=== PATIENT | female | born 1960 | race African-American/Black ===

== ENCOUNTER 2017-09-25 16:47 | Emergency (ER) | payer MEDICAID ==
[2017-09-25] MEDS ORDERED: ONDANSETRON HCL INJ/PF 4 MG/2 ML SDV IV ONE (17:01)
--- NOTE | 2017-09-25 17:07 | ER Document Report ---
ED Medical Screen (RME) - General Chief Complaint: Dizziness Stated Complaint: DIZZY,LEG PAIN Time Seen by Provider: 09/25/17 16:58 Mode of Arrival: Ambulatory Information source: Patient Notes: 57-year-old diabetic female presents with complaints of not feeling well and neuropathic pain right lower extremity. Patient notes her blood sugars been pretty high noted to be 400 on arrival I have greeted and performed a rapid initial assessment of this patient. A comprehensive ED assessment and evaluation of the patient, analysis of test results and completion of the medical decision making process will be conducted by additional ED providers. PHYSICAL EXAMINATION: GENERAL: Well-appearing, well-nourished and in no acute distress. HEAD: Atraumatic, normocephalic. EYES: Pupils equal round extraocular movements intact, conjunctiva are normal. ENT: Nares patent NECK: Normal range of motion LUNGS: No respiratory distress Musculoskeletal: Normal range of motion NEUROLOGICAL: Normal speech, normal gait. PSYCH: Normal mood, normal affect. SKIN: Warm, Dry, normal turgor, no rashes or lesions noted. TRAVEL OUTSIDE OF THE [place] IN LAST 30 DAYS: No - Related Data Allergies/Adverse Reactions: peanuts Allergy (Uncoded 09/25/17 16:48) Past Medical History - Social History Frequency of alcohol use: Rare Drug Abuse: None - Past Medical History Cardiac Medical History: Reports: Hx Hypercholesterolemia Pulmonary Medical History: Denies: Hx Tuberculosis Endocrine Medical History: Reports: Hx Diabetes Mellitus Type 2 - "diet controlled" Renal/ Medical History: Denies: Hx Peritoneal Dialysis Psychiatric Medical History: Reports: Hx Depression - anxiety Past Surgical History: Reports: Hx Cholecystectomy, Hx Tubal Ligation. Denies: Hx Pacemaker - Immunizations Hx Diphtheria, Pertussis, Tetanus Vaccination: Yes Physical Exam - Vital signs Vitals: Temp Pulse Resp BP Pulse Ox 98.3 F 98 20 125/89 H 96 09/25/17 16:52 09/25/17 16:52 09/25/17 16:52 09/25/17 16:52 09/25/17 16:52 Course - Vital Signs Vital signs: Temp Pulse Resp BP Pulse Ox 98.3 F 98 20 125/89 H 96 09/25/17 16:52 09/25/17 16:52 09/25/17 16:52 09/25/17 16:52 09/25/17 16:52
--- NOTE | 2017-09-25 17:23 | ER Document Report ---
ED General - General Mode of Arrival: Ambulatory TRAVEL OUTSIDE OF THE [place] IN LAST 30 DAYS: No <LAVONNE DIEGO - Last Filed: 09/25/17 19:00> <FREDY MOSELEY - Last Filed: 09/25/17 21:53> - General Chief Complaint: Dizziness Stated Complaint: DIZZY,LEG PAIN Time Seen by Provider: 09/25/17 16:58 - HPI Notes: Patient is a 57-year-old female type 1 insulin-dependent diabetic who presents to the ED complaining of occ dizziness, sweats, nausea, intermittent bilateral leg 'nerve pains' with increased sugar. Patient states that she has not been checking her sugars lately and when she started up with the symptoms she knew that her sugar was high. Patient checked her sugar and she was in the 4-500s. Patient states that she has been eating and drinking without any difficulties. She is urinating normally and having normal bowel movements. Patient states that she is currently on a sliding scale for insulin. Patient has not lost any consciousness. Patient states that she is ambulatory without any difficulties. Denies any headache, fever, head injury, neck pain, changes in vision/speech/ mentation/hearing, URI, sore throat, chest pain, palpitations, syncope, cough, shortness of breath, wheeze, dyspnea, abdominal pain, vomiting/diarrhea, urinary retention, dysuria, hematuria, loss of control of bowel or bladder, saddle anesthesia, muscle paralysis/weakness, or rash. (LAVONNE DIEGO) - Related Data Allergies/Adverse Reactions: peanuts Allergy (Uncoded 09/25/17 16:48) Past Medical History - General Information source: Patient - Social History Smoking Status: Current Every Day Smoker Frequency of alcohol use: Rare Drug Abuse: None Family History: DM Patient has suicidal ideation: No Patient has homicidal ideation: No - Past Medical History Cardiac Medical History: Reports: Hx Hypercholesterolemia Pulmonary Medical History: Denies: Hx Tuberculosis Endocrine Medical History: Reports: Hx Diabetes Mellitus Type 2 - "diet controlled" Renal/ Medical History: Denies: Hx Peritoneal Dialysis Psychiatric Medical History: Reports: Hx Depression - anxiety Past Surgical History: Reports: Hx Cholecystectomy, Hx Tubal Ligation. Denies: Hx Pacemaker - Immunizations Hx Diphtheria, Pertussis, Tetanus Vaccination: Yes Hx Pneumococcal Vaccination: 04/12/12 <LAVONNE DIEGO - Last Filed: 09/25/17 19:00> Review of Systems <LAVONNE DIEGO - Last Filed: 09/25/17 19:00> <FREDY MOSELEY - Last Filed: 09/25/17 21:53> - Review of Systems Notes: REVIEW OF SYSTEMS: CONSTITUTIONAL : see hpi. Denies fever. EENT: Denies eye, ear, throat, or mouth pain or symptoms. Denies nasal or sinus congestion or discharge. Denies throat, tongue, or mouth swelling or difficulty swallowing. CARDIOVASCULAR: Denies chest pain. Denies palpitations or racing or irregular heart beat. Denies ankle edema. RESPIRATORY: Denies cough, cold, or chest congestion. Denies shortness of breath, difficulty breathing, or wheezing. GASTROINTESTINAL: see hpi. Denies abdominal pain or distention. Denies vomiting , or diarrhea. Denies blood in vomitus, stools, or per rectum. Denies black, tarry stools. Denies constipation. GENITOURINARY: Denies difficulty urinating, painful urination, burning, frequency, blood in urine, or discharge. MUSCULOSKELETAL: see hpi. Denies back or neck pain or stiffness. Denies joint pain or swelling. SKIN: Denies rash, lesions or sores. NEUROLOGICAL: Denies confusion or altered mental status. Denies passing out or loss of consciousness. Denies dizziness or lightheadedness. Denies headache. Denies weakness or paralysis or loss of use of either side. Denies problems with gait or speech. Denies seizures. PSYCHIATRIC: Denies anxiety or stress. ALL OTHER SYSTEMS REVIEWED AND NEGATIVE. Dictation was performed using [employer] voice recognition software (LAVONNE DIEGO) Physical Exam <LAVONNE DIEGO - Last Filed: 09/25/17 19:00> <FREDY MOSELEY - Last Filed: 09/25/17 21:53> - Vital signs Vitals: Temp Pulse Resp BP Pulse Ox 98.3 F 98 20 125/89 H 96 09/25/17 16:52 09/25/17 16:52 09/25/17 16:52 09/25/17 16:52 09/25/17 16:52 - Notes Notes: PHYSICAL EXAMINATION: GENERAL: Well-appearing, well-nourished and in no acute distress. A&Ox4. Answers questions appropriately. Appears comfortable in no discomfort. HEAD: Atraumatic, normocephalic. EYES: Pupils equal round and reactive to light, extraocular movements intact, sclera anicteric, conjunctiva are normal. ENT: Nares patent and without discharge. oropharynx clear without exudates. No tonsilar hypertrophy or erythema. Moist mucous membranes. NECK: Normal range of motion, supple without lymphadenopathy. No rigidity. LUNGS: Breath sounds clear to auscultation bilaterally and equal. No wheezes rales or rhonchi. HEART: Regular rate and rhythm without murmurs, rubs, gallops. ABDOMEN: Soft, nontender, nondistended abdomen. No guarding, no rebound. No masses appreciated. Normal bowel sounds present. No CVA tenderness bilaterally. Musculoskeletal: FROM to passive/active. Strength 5+/5. Margareth neg. No calf erythema/swelling. Extremities: No cyanosis, clubbing, or edema b/l. Peripheral pulses 2+. Capillary refill less than 3 seconds. NEUROLOGICAL: MMSE intact. NIH 0. GCS 15. Cranial nerves grossly intact. Normal speech, normal gait. Normal sensory, motor exams PSYCH: Normal mood, normal affect. SKIN: Warm, Dry, normal turgor, no rashes or lesions noted. (LAVONNE DIEGO) Course - Laboratory Result Diagrams: 09/25/17 18:00 09/25/17 18:00 <LAVONNE DIEGO - Last Filed: 09/25/17 19:00> - Laboratory Result Diagrams: 09/25/17 18:00 09/25/17 18:00 <FREDY MOSELEY - Last Filed: 09/25/17 21:53> - Re-evaluation Re-evalutation: 09/25/17 18:46 Patient is an afebrile, well-hydrated, 57-year-old female who presents to the ED with elevated blood glucose. Vitals are stable. PE is otherwise unremarkable. CBC, venous blood gas or unremarkable for any acute pathology. CMP was unremarkable aside from the elevated blood glucose level. Urinalysis was unremarkable aside from ketones and sugar. Patient was started on to 2 L of normal saline. Glucose is 381. Regular insulin 5 units ordered. Patient was also given Zofran at triage. Low suspicion for any DKA, sepsis, meningitis , severe dehydration, or other systemic emergent condition at this time. Patient is aware that her condition can change from initial presentation and she needs to monitor symptoms closely and seek medical attention for any acute changes. Recommend conservative measures for symptoms. Recheck with your PCM in 3-5 days. Return to the ED with any worsening/concerning symptoms otherwise as reviewed in discharge. Patient is in agreement. Patient will be discharged if glucose remains stable after fluids and insulin. 09/25/17 19:00 Transfer remaining care to [facility] if any new problems should arise. (LAVONNE DIEGO) 09/25/17 20:45 Patient without any nausea or vomiting at this time. Vital signs remained stable. Discussed plan of care with patient as well as importance of follow-up with primary doctor to recheck her diabetic medication regimen. Patient stable for discharge at this time. (FREDY MOSELEY) - Vital Signs Vital signs: Temp Pulse Resp BP Pulse Ox 98.3 F 98 17 110/60 97 09/25/17 21:48 09/25/17 16:52 09/25/17 21:43 09/25/17 21:43 09/25/17 21:43 - Laboratory Laboratory results interpreted by me: 09/25/17 09/25/17 09/25/17 18:00 18:00 18:00 RDW 14.9 H Glucose 386 H POC Glucose Urine Glucose (UA) >=500 H Urine Ketones 20 H Urine Blood SMALL H 09/25/17 21:09 RDW Glucose POC Glucose 260 H Urine Glucose (UA) Urine Ketones Urine Blood Discharge <LAVONNE DIEGO - Last Filed: 09/25/17 19:00> <FREDY MOSELEY - Last Filed: 09/25/17 21:53> - Discharge Clinical Impression: Elevated glucose Condition: Stable Disposition: HOME, SELF-CARE Additional Instructions: Maintain adequate fluid and food intake healthy diet, low carb/sugar Monitor blood glucose levels regularly and keep a log to report to your PCM* Zofran as needed tylenol if needed Monitor for any worsening symptoms Make sure you are staying hydrated enough to urinate and have normal BM's Recheck with your PCM in 3-5 days Consider consult with Endocrinology for ongoing/worsening symptoms Return to the ED with any worsening symptoms and/or development of fever, headache, chest pain, palpitations, syncope, shortness of breath, trouble breathing, abdominal pain, n/v/d, blood in stool/urine, weakness, or other worsening symptoms that are concerning to you. Prescriptions: Ondansetron [Zofran Odt 4 mg Tablet] 1 - 2 tab PO Q4H PRN #15 tab.rapdis PRN Reason: For Nausea/Vomiting Forms: Elevated Blood Pressure Referrals: FOZIA KOLB MD [Primary Care Provider] - Follow up in 3-5 days
[2017-09-25] MEDS: NORMAL SALINE 1000 ML 1,000 ML IV PRN ×2 (18:01→19:09)
[2017-09-25 18:15] LABS: ABSOLUTE BASOPHILS # (AUTO) 0.1 10^3/uL (0.0-0.2); ABSOLUTE EOSINOPHILS # (AUTO) 0.1 10^3/uL (0.0-0.6); ABSOLUTE LYMPHOCYTES (AUTO) 2.3 10^3/uL (0.5-4.7); ABSOLUTE MONOCYTES (AUTO) 0.4 10^3/uL (0.1-1.4); ABSOLUTE NEUT (AUTO) 3.2 10^3/uL (1.7-8.2); BASOPHILS % (AUTO) 1.3 % (0-2); HEMATOCRIT 42.2 % (36.0-47.0); LYMPHOCYTES % (AUTO) 37.6 % (13-45); MEAN CORPUSCULAR HGB CONC 33.2 g/dL (32.0-36.0); MEAN CORPUSCULAR VOLUME 81 fl (80-97); MONOCYTES % (AUTO) 6.9 % (3-13); PLATELET COUNT 257 10^3/uL (150-450); RED BLOOD COUNT 5.21 10^6/uL (3.72-5.28); RED CELL DISTRIBUTION WIDTH 14.9 % (11.5-14.0); SEGMENTED NEUTROPHILS % (AUTO) 52.2 % (42-78); TOTAL CELLS COUNTED % (AUTO) 100 %; WHITE BLOOD COUNT 6.2 10^3/uL (4.0-10.5)
[2017-09-25 18:16] LABS: APPEARANCE,URINE SLIGHTLY-CLOUDY; BILIRUBIN,URINE NEGATIVE (NEGATIVE); COLOR,URINE YELLOW; GLUCOSE, URINE >=500 mg/dL (NEGATIVE); KETONES,URINE 20 mg/dL (NEGATIVE); LEUKOCYTE ESTERASE,URINE NEGATIVE (NEGATIVE); NITRITE,URINE NEGATIVE (NEGATIVE); PROTEIN,URINE NEGATIVE (NEGATIVE); URINE SPECIFIC GRAVITY 1.037; UROBILINOGEN,URINE NEGATIVE mg/dL (<2.0)
[2017-09-25 18:31] LABS: ALANINE AMINOTRANSFERASE 25 U/L (9-52); ALBUMIN 4.5 g/dL (3.5-5.0); ALKALINE PHOSPHATASE 113 U/L (38-126); ANION GAP 11 (5-19); ASPARTATE AMINO TRANSFERASE 16 U/L (14-36); BILIRUBIN,DIRECT 0.2 mg/dL (0.0-0.4); BILIRUBIN,TOTAL 0.8 mg/dL (0.2-1.3); BLOOD UREA NITROGEN 8 mg/dL (7-20); CALCIUM 9.7 mg/dL (8.4-10.2); CARBON DIOXIDE 25 mmol/L (22-30); CHLORIDE 103 mmol/L (98-107); GLUCOSE 386 mg/dL (75-110); LIPASE 246.4 U/L (23-300); POTASSIUM 4.3 mmol/L (3.6-5.0); SODIUM 138.9 mmol/L (137-145); TOTAL PROTEIN 7.5 g/dL (6.3-8.2)
[2017-09-25 18:41] LABS: VENOUS BLOOD BASE EXCESS -1.9 mmol/L; VENOUS BLOOD HCO3 23.7 mmol/L (20-32); VENOUS BLOOD PCO2 43.6 mmHg (35-63); VENOUS BLOOD PH 7.35 (7.30-7.42)
[2017-09-25] MEDS ORDERED: INSULIN REG, HUMAN 100 UNIT/ML 3 ML VIAL (PYX) SUBCUT ONE ×2 (18:42)
[2017-09-25 21:47] VITALS: BP 110/60
== END 2017-09-25 21:54 | disposition home or self-care (01) ==
LOC: ER 16:47
DX: E10.65 Type 1 diabetes mellitus with hyperglycemia (principal); R42 Dizziness and giddiness; F17.200 Nicotine dependence, unspecified, uncomplicated; Z91.010 Allergy to peanuts; Z79.4 Long term (current) use of insulin; Z90.49 Acquired absence of other specified parts of digestive tract; Z98.51 Tubal ligation status
CPT/HCPCS: 99284; 96361; 96374; 36415; 82962; 83690; 85025; 80053; 81001; 82803; J1815; J2405; J7030

== ENCOUNTER → 2017-09-27 | Outpatient (CLI) | payer MEDICAID ==
--- NOTE | 2017-09-27 17:03 | WOMENS IMAGING REPORT ---
EXAM DESCRIPTION: BILAT SCREENING MAMMO W/CAD COMPLETED DATE/TIME: 09/27/2017 1:54 pm REASON FOR STUDY: ROUTINE SCREENING; Z12.31 Z12.31 ENCNTR SCREEN MAMMOGRAM FOR MALIGNANT NEOPLASM O F BONI E04.9 NONTOXIC GOITER, UNSPECIFIED COMPARISON: 2008 TECHNIQUE: Standard craniocaudal and mediolateral oblique views of each breast recorded using digita l acquisition. LIMITATIONS: None. FINDINGS: No masses, calcifications or architectural distortion. No areas of suspicion. Read with the assistance of CAD. .[facility] - R2 Cenova Version 1.3 .[facility] - R2 Cenova Version 1.3 .[facility] - R2 Cenova Version 2.4 .[facility] - R2 Cenova Version 2.4 .[facility] - R2 [employer] Version 9.2 IMPRESSION: NORMAL MAMMOGRAM. BIRADS 1. BREAST DENSITY: b. There are scattered areas of fibroglandular density. BIRAD: 1 NEGATIVE RECOMMENDATION: ROUTINE SCREENING COMMENT: The patient has been notified of the results by letter per MQSA requirements. Additional no tification policies are in place for contacting patient with suspicious or incomplete findings. Quality ID #[id number]: The [employer] recommends an annual screening mammogram for women aged 40 years or over. This facility utilizes a reminder system to ensure that all patients receive reminder letters, and/or direct phone calls for appointments. This includes reminders for routine scr eening mammograms, diagnostic mammograms, or other Breast Imaging Interventions when appropriate. Th is patient will be placed in the appropriate reminder system. The [employer] (ACR) has developed recommendations for screening MRI of the breast s in certain patient populations, to be used in conjunction with mammography. Breast MRI surveillanc e may be appropriate for women with more than 20% lifetime risk of developing breast cancer as deter mined by genetic testing, significant family history of the disease, or history of mantle radiation f or Hodgkins Disease. ACR Practice Guidelines 2008. TECHNICAL DOCUMENTATION: FINDING NUMBER: (1) ASSESSMENT: (1) JOB ID: [id number] [employer]- All Rights Reserved
== END ==
LOC: WI 13:41
PROVIDERS: ATTEND Internal Medicine Geriatric Medicine
DX: Z12.31 Encounter for screening mammogram for malignant neoplasm of breast (principal); E04.9 Nontoxic goiter, unspecified
CPT/HCPCS: 77067

== ENCOUNTER 2018-11-08 15:49 | Emergency (ER) | payer MEDICAID ==
[2018-11-08] MEDS ORDERED: ACETAMINOPHEN 325 MG TABLET PO ONE (17:39)
--- NOTE | 2018-11-08 17:40 | ER Document Report ---
ED Medical Screen (RME) - General Chief Complaint: Leg Pain Stated Complaint: LEG/FEET/ARM PAIN Time Seen by Provider: 11/08/18 17:38 Primary Care Provider: FOZIA KOLB MD [Primary Care Provider] - Follow up as needed Mode of Arrival: Ambulatory Information source: Patient Notes: Patient presents complaining of muscle cramps to the bilateral calves in the left forearm that started around 4 AM today. Patient denies any new foods medications or changes in her usual prescription dosages. Patient denies any injury or fever. Patient does complain of mild headache that is started while here waiting today. I have greeted and performed a rapid initial assessment of this patient. A comprehensive ED assessment and evaluation of the patient, analysis of test results and completion of the medical decision making process will be conducted by additional ED providers. hx: DM TRAVEL OUTSIDE OF THE [place] IN LAST 30 DAYS: No - Related Data Allergies/Adverse Reactions: peanuts Allergy (Uncoded 11/08/18 15:51) Past Medical History - Past Medical History Cardiac Medical History: Reports: Hx Hypercholesterolemia Pulmonary Medical History: Denies: Hx Tuberculosis Endocrine Medical History: Reports: Hx Diabetes Mellitus Type 2 - "diet controlled" Renal/ Medical History: Denies: Hx Peritoneal Dialysis Psychiatric Medical History: Reports: Hx Depression - anxiety Past Surgical History: Reports: Hx Cholecystectomy, Hx Tubal Ligation. Denies: Hx Pacemaker - Immunizations Hx Diphtheria, Pertussis, Tetanus Vaccination: Yes Physical Exam - Vital signs Vitals: Temp Pulse Resp BP Pulse Ox 98.3 F 88 17 118/71 98 11/08/18 16:42 11/08/18 16:42 11/08/18 16:42 11/08/18 16:42 11/08/18 16:42 - Extremities General upper extremity: Tender - Left forearm General lower extremity: Tender - Bilateral calf tenderness Course - Vital Signs Vital signs: Temp Pulse Resp BP Pulse Ox 98.3 F 88 17 118/71 98 11/08/18 16:42 11/08/18 16:42 11/08/18 16:42 11/08/18 16:42 11/08/18 16:42 Doctor's Discharge - Discharge Referrals: FOZIA KOLB MD [Primary Care Provider] - Follow up as needed
[2018-11-08 18:22] LABS: ABSOLUTE BASOPHILS # (AUTO) 0.1 10^3/uL (0.0-0.2); ABSOLUTE EOSINOPHILS # (AUTO) 0.2 10^3/uL (0.0-0.6); ABSOLUTE MONOCYTES (AUTO) 0.7 10^3/uL (0.1-1.4); ABSOLUTE NEUT (AUTO) 5.7 10^3/uL (1.7-8.2); BASOPHILS % (AUTO) 0.8 % (0-2); EOSINOPHILS % (AUTO) 1.6 % (0-6); HEMATOCRIT 41.6 % (36.0-47.0); HEMOGLOBIN 14.1 g/dL (12.0-15.5); LYMPHOCYTES % (AUTO) 31.5 % (13-45); MEAN CORPUSCULAR HEMOGLOBIN 28.3 pg (27.0-33.4); MEAN CORPUSCULAR HGB CONC 33.9 g/dL (32.0-36.0); MEAN CORPUSCULAR VOLUME 84 fl (80-97); MONOCYTES % (AUTO) 7.6 % (3-13); PLATELET COUNT 290 10^3/uL (150-450); RED BLOOD COUNT 4.98 10^6/uL (3.72-5.28); RED CELL DISTRIBUTION WIDTH 15.5 % (11.5-14.0); SEGMENTED NEUTROPHILS % (AUTO) 58.5 % (42-78); TOTAL CELLS COUNTED % (AUTO) 100 %; WHITE BLOOD COUNT 9.7 10^3/uL (4.0-10.5)
[2018-11-08 18:41] LABS: ALANINE AMINOTRANSFERASE 24 U/L (9-52); ALBUMIN 4.8 g/dL (3.5-5.0); ALKALINE PHOSPHATASE 119 U/L (38-126); ANION GAP 11 (5-19); ANISOCYTOSIS SLIGHT; ASPARTATE AMINO TRANSFERASE 29 U/L (14-36); BILIRUBIN,DIRECT 0.2 mg/dL (0.0-0.4); BILIRUBIN,TOTAL 1.3 mg/dL (0.2-1.3); BLOOD UREA NITROGEN 14 mg/dL (7-20); CALCIUM 10.3 mg/dL (8.4-10.2); CARBON DIOXIDE 28 mmol/L (22-30); CHLORIDE 100 mmol/L (98-107); CREATINE KINASE 187 U/L (30-135); GLUCOSE 138 mg/dL (75-110); PLATELET COMMENT ADEQUATE; POTASSIUM 4.1 mmol/L (3.6-5.0); SODIUM 138.8 mmol/L (137-145); TOTAL PROTEIN 7.8 g/dL (6.3-8.2); TOXIC GRANULATION SLIGHT
--- NOTE | 2018-11-09 00:43 | ER Document Report ---
ED General - General Chief Complaint: Leg Pain Stated Complaint: LEG/FEET/ARM PAIN Time Seen by Provider: 11/08/18 17:38 Primary Care Provider: FOZIA KOLB MD [Primary Care Provider] - 11/16/18 Mode of Arrival: Ambulatory Notes: Patient is a 58-year-old female who presents to the emergency department with a chief complaint of bilateral low leg and left arm pain. She describes her pain as a cramping, "charley horse" feeling. Her symptoms come and go but today they lasted all day and she was worried. She ended up coming to the emergency department she denies any shortness of breath, nausea, vomiting, diarrhea. She is a past medical history of diabetes. TRAVEL OUTSIDE OF THE [place] IN LAST 30 DAYS: No - Related Data Allergies/Adverse Reactions: peanuts Allergy (Uncoded 11/08/18 15:51) Past Medical History - General Information source: Patient - Social History Smoking Status: Current Every Day Smoker Chew tobacco use (# tins/day): No Frequency of alcohol use: None Drug Abuse: None Family History: DM Patient has suicidal ideation: No Patient has homicidal ideation: No - Past Medical History Cardiac Medical History: Reports: Hx Hypercholesterolemia Pulmonary Medical History: Denies: Hx Tuberculosis Endocrine Medical History: Reports: Hx Diabetes Mellitus Type 2 - "diet controlled" Renal/ Medical History: Denies: Hx Peritoneal Dialysis Psychiatric Medical History: Reports: Hx Depression - anxiety Past Surgical History: Reports: Hx Cholecystectomy, Hx Tubal Ligation. Denies: Hx Pacemaker - Immunizations Hx Diphtheria, Pertussis, Tetanus Vaccination: Yes Hx Pneumococcal Vaccination: 04/12/12 Review of Systems - Review of Systems Notes: REVIEW OF SYSTEMS: CONSTITUTIONAL : Denies recent illness. Denies recent unintentional weight loss. Denies fever, chills, or sweats. EENT: Denies eye, ear, throat, or mouth pain, discharge, or symptoms. Denies nasal or sinus congestion. CARDIOVASCULAR: Denies chest pain. RESPIRATORY: Denies shortness of breath, cough, congestion, difficulty breathing, or wheezing. GASTROINTESTINAL: Denies nausea, vomiting, and diarrhea. Denies abdominal pain. Denies constipation. GENITOURINARY: Denies difficulty urinating, burning, blood in urine, urgency or frequency. MUSCULOSKELETAL: See HPI SKIN: Denies rash, itchiness, or lesions HEMATOLOGIC : Denies easy bruising or bleeding. LYMPHATIC: Denies swollen, painful, enlarged glands. NEUROLOGICAL: Denies no numbness or tingling denies weakness. Denies headache. Denies altered mental status. Denies alteration in speech. PSYCHIATRIC: Denies stress, anxiety, alteration in sleep patterns, or depression. All other systems reviewed and negative. Physical Exam - Vital signs Vitals: Temp Pulse Resp BP Pulse Ox 98.3 F 88 17 118/71 98 11/08/18 16:42 11/08/18 16:42 11/08/18 16:42 11/08/18 16:42 11/08/18 16:42 - Notes Notes: PHYSICAL EXAMINATION: GENERAL: Appears well, healthy, well-nourished, no acute distress. HEAD: Normocephalic, atraumatic. EYES: PERRL, conjunctiva normal, all extraocular movements intact, sclera nonicteric ENT: Dry mucous membranes. NECK: Supple, no noticeable swelling, redness, rash. Normal range of motion. LUNGS: Equal breath sounds bilaterally and clear to auscultation. No wheezes rales or rhonchi. CARDIOVASCULAR: S1-S2, regular rate, regular rhythm. Radial pulses 2+, normal. ABDOMEN: Normoactive bowel sounds. Soft, nontender, no guarding, no rebound tenderness, and no masses palpated. EXTREMITIES: Normal strength and range of motion, no pitting or edema. No cyanosis. NEUROLOGICAL: Moves all extremities upon command. Strength 5/5 in all extre mities. PSYCH: Normal mood, normal affect. SKIN: Warm, dry. No rash, lesions, ulcerations noted. Normal skin turgor. Course - Re-evaluation Re-evalutation: Patient's commenced hematology is unremarkable. Her CK is slightly elevated at 187. Her calcium is 10.3. I suspect her "charley horse" feeling are due to her dehydration and her calcium being slightly elevated. I have instructed her that she needs to increase her water intake. Strict follow-up precautions were given. Verbal discharge instructions were given to the patient. They verbalized understanding. They are stable for discharge. - Vital Signs Vital signs: Temp Pulse Resp BP Pulse Ox 97.6 F 98 16 113/57 L 100 11/09/18 00:54 11/09/18 00:54 11/09/18 00:54 11/09/18 00:54 11/09/18 00:54 - Laboratory Result Diagrams: 11/08/18 18:03 11/08/18 18:03 Laboratory results interpreted by me: 11/08/18 11/08/18 18:03 18:03 RDW 15.5 H Glucose 138 H Calcium 10.3 H Creatine Kinase 187 H Discharge - Discharge Clinical Impression: Left arm pain Leg pain Qualifiers: Laterality: bilateral Qualified Code(s): M79.604 - Pain in right leg Condition: Stable Disposition: HOME, SELF-CARE Additional Instructions: You were seen today in the emergency department for leg pain and left hand pain. Your pain or, "charley horse" feeling is due to dehydration. Please make sure you stay well-hydrated. You can take Tylenol 1000 mg and ibuprofen 600 mg every 6 hours as needed for your pain. Please follow-up with your primary care provider in regards to this visit. You have worsening symptoms, please return to the emergency department. Referrals: FOZIA KOLB MD [Primary Care Provider] - 11/16/18
[2018-11-09] MEDS ORDERED: IBUPROFEN 600 MG TABLET PO ONE (00:44)
[2018-11-09] MEDS ORDERED: ACETAMINOPHEN 325 MG TABLET PO ONE (00:45)
[2018-11-09 01:05] VITALS: BP 113/57
== END 2018-11-09 01:05 | disposition home or self-care (01) ==
LOC: ER 15:49
DX: M79.602 Pain in left arm (principal); E86.0 Dehydration; M79.661 Pain in right lower leg; M79.662 Pain in left lower leg; E11.9 Type 2 diabetes mellitus without complications; F17.200 Nicotine dependence, unspecified, uncomplicated; Z91.010 Allergy to peanuts
CPT/HCPCS: 99283; 36415; 82550; 85025; 80053; J3490 ×3

== ENCOUNTER → 2019-01-16 | Outpatient (CLI) | payer MEDICAID ==
[2019-01-16 13:38] LABS: ANION GAP 7 (5-19); BLOOD UREA NITROGEN 15 mg/dL (7-20); CALCIUM 10.2 mg/dL (8.4-10.2); CARBON DIOXIDE 31 mmol/L (22-30); CHLORIDE 107 mmol/L (98-107); CREATINE KINASE 72 U/L (30-135); GLUCOSE 116 mg/dL (75-110); POTASSIUM 5.1 mmol/L (3.6-5.0)
== END ==
LOC: OD 11:13
PROVIDERS: ATTEND Internal Medicine Geriatric Medicine
DX: M79.605 Pain in left leg (principal); M79.604 Pain in right leg
CPT/HCPCS: 36415; 80048; 82550; 83735

== ENCOUNTER → 2019-01-30 | Outpatient (CLI) | payer MEDICAID ==
--- NOTE | 2019-01-30 17:29 | VASCULAR PRELIM REPORT ---
Provider Note Provider Note: The study is normal and negative for deep venous thrombosis in the lower extremity veins. A final report will be completed.
--- NOTE | 2019-01-31 13:31 | XCELERA REPORT ---
[address] [facility] [address] Lower Extremity Venous Evaluation Procedure: Color flow and duplex imaging bilaterally of the veins of the lower extremities as well as the Common Femoral veins. Right Sided Venous Evaluation Normal vessel filling wall to wall, compression and augmentation as well as Colour flow down to the infrageniculate veins. Left Sided Venous Evaluation Normal vessel filling wall to wall, compression and augmentation as well as Colour flow down to the infrageniculate veins. Interpretation Summary No duplex evidence of DVT or obstruction in the bilateral lower extremities. Name: MADY YBARRA Age: 59 yrs Gender: Female : [id number] Patient Status: Outpatient Patient Location: Study Date: 01/30/2019 02:42 PM Reason For Study: PAIN Ordering Physician: FOZIA KOLB Performed By: Servando Link : FOZIA KOLB > Anup Pascual
== END ==
LOC: SP 14:26
PROVIDERS: ATTEND Internal Medicine Geriatric Medicine
DX: M79.662 Pain in left lower leg (principal); M79.661 Pain in right lower leg
CPT/HCPCS: 93970

== ENCOUNTER 2019-03-04 15:04 | Emergency (ER) | payer MEDICAID ==
[2019-03-04 15:22] VITALS: BP 118/88
--- NOTE | 2019-03-04 15:53 | ER Document Report ---
ED Medical Screen (RME) - General Chief Complaint: Drug Abuse Stated Complaint: WANTS REFERRAL/DRUG,ALCOHOL DETOX Time Seen by Provider: 03/04/19 15:46 Primary Care Provider: FOZIA KOLB MD [Primary Care Provider] - Follow up as needed Mode of Arrival: Ambulatory Information source: Patient Notes: Patient presents to the emergency department with request for help for drug and alcohol abuse. Patient reports she does cocaine all the time is been drinking for 3 months straight. She is been sober several times for 2 to 3 years at a time. Patient reports she usually gets help when she is up in [place] she just moved here. Pt is calm. Denies suicidal homicidal ideations. Reports she last drank alcohol yesterday. Cocaine 2 days ago. Denies history of IV drug use. I have greeted and performed a rapid initial assessment of this patient. A comprehensive ED assessment and evaluation of the patient, analysis of test results and completion of the medical decision making process will be conducted by additional ED providers. Dictation of this chart was performed using voice recognition software; therefore, there may be some unintended grammatical errors. TRAVEL OUTSIDE OF THE [place] IN LAST 30 DAYS: No - Related Data Allergies/Adverse Reactions: peanuts Allergy (Uncoded 03/04/19 15:11) Past Medical History - Past Medical History Cardiac Medical History: Reports: Hx Hypercholesterolemia Pulmonary Medical History: Denies: Hx Tuberculosis Endocrine Medical History: Reports: Hx Diabetes Mellitus Type 2 - "diet controlled" Renal/ Medical History: Denies: Hx Peritoneal Dialysis Psychiatric Medical History: Reports: Hx Depression - anxiety Past Surgical History: Reports: Hx Cholecystectomy, Hx Tubal Ligation. Denies: Hx Pacemaker - Immunizations Hx Diphtheria, Pertussis, Tetanus Vaccination: Yes Physical Exam - Vital signs Vitals: Temp Pulse Resp BP Pulse Ox 97.9 F 96 16 118/88 H 98 03/04/19 15:21 03/04/19 15:21 03/04/19 15:21 03/04/19 15:21 03/04/19 15:21 Course - Vital Signs Vital signs: Temp Pulse Resp BP Pulse Ox 97.9 F 96 16 118/88 H 98 03/04/19 15:21 03/04/19 15:21 03/04/19 15:21 03/04/19 15:21 07/07/19 15:21 Doctor's Discharge - Discharge Referrals: FOZIA KOLB MD [Primary Care Provider] - Follow up as needed
--- NOTE | 2019-03-04 16:18 | ER Document Report ---
ED General - General Chief Complaint: Drug Abuse Stated Complaint: WANTS REFERRAL/DRUG,ALCOHOL DETOX Time Seen by Provider: 03/04/19 15:46 Primary Care Provider: FOZIA KOLB MD [Primary Care Provider] - Follow up as needed Mode of Arrival: Ambulatory TRAVEL OUTSIDE OF THE [place] IN LAST 30 DAYS: No - HPI Patient complains to provider of: Alcohol abuse Notes: 89-year-old female presents looking to get help with her alcohol abuse. Patient was last drink was last night approximately 10 PM. Patient had 5 drinks yesterday but usually drinks a great deal more than this. Patient denies history of seizure or delirium tremens. Looking to get help. Denies all physical complaints - Related Data Allergies/Adverse Reactions: peanuts Allergy (Uncoded 03/04/19 15:11) Past Medical History - General Information source: Patient - Social History Smoking Status: Current Every Day Smoker Chew tobacco use (# tins/day): No Frequency of alcohol use: Heavy Drug Abuse: Cocaine, Marijuana Family History: DM Patient has suicidal ideation: No Patient has homicidal ideation: No - Past Medical History Cardiac Medical History: Reports: Hx Hypercholesterolemia Pulmonary Medical History: Denies: Hx Tuberculosis Endocrine Medical History: Reports: Hx Diabetes Mellitus Type 2 - "diet controlled" Renal/ Medical History: Denies: Hx Peritoneal Dialysis Psychiatric Medical History: Reports: Hx Depression - anxiety Past Surgical History: Reports: Hx Cholecystectomy, Hx Tubal Ligation. Denies: Hx Pacemaker - Immunizations Hx Diphtheria, Pertussis, Tetanus Vaccination: Yes Hx Pneumococcal Vaccination: 04/12/12 Review of Systems - Review of Systems Notes: REVIEW OF SYSTEMS: CONSTITUTIONAL: -fevers, -chills EENT: -eye pain, -difficulty swallowing, -nasal congestion CARDIOVASCULAR: -chest pain, -syncope. RESPIRATORY: -cough, -SOB GASTROINTESTINAL: -abdominal pain, -nausea, -vomiting, -diarrhea GENITOURINARY: -dysuria, -hematuria MUSCULOSKELETAL: -back pain, -neck pain SKIN: -rash or skin lesions. HEMATOLOGIC: -easy bruising or bleeding. LYMPHATIC: -swollen, enlarged glands. NEUROLOGICAL: -altered mental status or loss of consciousness, -headache, - neurologic symptoms PSYCHIATRIC: -anxiety, -depression. ALL OTHER SYSTEMS REVIEWED AND NEGATIVE. Physical Exam - Vital signs Vitals: Temp Pulse Resp BP Pulse Ox 97.9 F 96 16 118/88 H 98 07/07/19 15:21 03/04/19 15:21 03/04/19 15:21 03/04/19 15:21 03/04/19 15:21 - Notes Notes: PHYSICAL EXAMINATION: GENERAL: Well-appearing, well-nourished and in no acute distress. HEAD: Atraumatic, normocephalic. EYES: Pupils equal round and reactive to light, extraocular movements intact, sclera anicteric, conjunctiva are normal. ENT: nares patent, oropharynx clear without exudates. Moist mucous membranes. NECK: Normal range of motion, supple without lymphadenopathy LUNGS: Breath sounds clear to auscultation bilaterally and equal. No wheezes rales or rhonchi. HEART: Regular rate and rhythm without murmurs ABDOMEN: Soft, nontender, normoactive bowel sounds. No guarding, no rebound. No masses appreciated. EXTREMITIES: Normal range of motion, no pitting or edema. No cyanosis. NEUROLOGICAL: Cranial nerves grossly intact. Normal speech, normal gait. Normal sensory and motor exams. PSYCH: Normal mood, normal affect. SKIN: Warm, Dry, normal turgor, no rashes or lesions noted. Course - Re-evaluation Re-evalutation: 03/04/19 16:34 Well-appearing female no acute distress presents for alcohol evaluation. 03/04/19 16:48 Patient's extensive lab work-up unremarkable. Patient is provided detox and substance abuse information. Including calling mobile crisis that will assist with her placement. Patient be discharged from the hospital with prescription for Librium as well to help with symptoms of withdrawal. - Vital Signs Vital signs: Temp Pulse Resp BP Pulse Ox 97.9 F 96 16 118/88 H 98 03/04/19 15:21 03/04/19 15:21 03/04/19 15:21 03/04/19 15:21 03/04/19 15:21 - Laboratory Result Diagrams: 03/04/19 16:05 03/04/19 16:05 Laboratory results interpreted by me: 03/04/19 16:05 Glucose 171 H Total Protein 8.3 H Salicylates < 1.0 L Acetaminophen < 10 L Discharge - Discharge Clinical Impression: Alcohol abuse Condition: Stable Disposition: HOME, SELF-CARE Instructions: Alcohol Withdrawl (OM) Prescriptions: Chlordiazepoxide HCl [Librium 25 mg Capsule] 1 cap PO TID #30 capsule Referrals: FOZIA KOLB MD [Primary Care Provider] - Follow up as needed
[2019-03-04 16:25] LABS: ABSOLUTE BASOPHILS # (AUTO) 0.1 10^3/uL (0.0-0.2); ABSOLUTE EOSINOPHILS # (AUTO) 0.4 10^3/uL (0.0-0.6); ABSOLUTE LYMPHOCYTES (AUTO) 2.6 10^3/uL (0.5-4.7); ABSOLUTE MONOCYTES (AUTO) 0.7 10^3/uL (0.1-1.4); ABSOLUTE NEUT (AUTO) 5.9 10^3/uL (1.7-8.2); BASOPHILS % (AUTO) 0.7 % (0-2); EOSINOPHILS % (AUTO) 3.7 % (0-6); HEMATOCRIT 44.2 % (36.0-47.0); HEMOGLOBIN 14.5 g/dL (12.0-15.5); LYMPHOCYTES % (AUTO) 27.3 % (13-45); MEAN CORPUSCULAR HEMOGLOBIN 27.7 pg (27.0-33.4); MEAN CORPUSCULAR HGB CONC 32.8 g/dL (32.0-36.0); MEAN CORPUSCULAR VOLUME 85 fl (80-97); MONOCYTES % (AUTO) 7.3 % (3-13); PLATELET COUNT 293 10^3/uL (150-450); RED BLOOD COUNT 5.23 10^6/uL (3.72-5.28); RED CELL DISTRIBUTION WIDTH 16.6 % (11.5-14.0); TOTAL CELLS COUNTED % (AUTO) 100 %; WHITE BLOOD COUNT 9.6 10^3/uL (4.0-10.5)
[2019-03-04] MEDS ORDERED: LORAZEPAM 1 MG TABLET PO ONE (16:32)
[2019-03-04 16:36] LABS: ALANINE AMINOTRANSFERASE 20 U/L (9-52); ALBUMIN 4.9 g/dL (3.5-5.0); ALKALINE PHOSPHATASE 90 U/L (38-126); ANION GAP 9 (5-19); ASPARTATE AMINO TRANSFERASE 26 U/L (14-36); BILIRUBIN,DIRECT 0.2 mg/dL (0.0-0.4); BILIRUBIN,TOTAL 0.9 mg/dL (0.2-1.3); BLOOD UREA NITROGEN 14 mg/dL (7-20); CALCIUM 10.2 mg/dL (8.4-10.2); CARBON DIOXIDE 28 mmol/L (22-30); CHLORIDE 107 mmol/L (98-107); GLUCOSE 171 mg/dL (75-110); POTASSIUM 4.9 mmol/L (3.6-5.0); SODIUM 144.1 mmol/L (137-145); TOTAL PROTEIN 8.3 g/dL (6.3-8.2)
[2019-03-04 16:39] LABS: ACETAMINOPHEN < 10 ug/mL (10-30); ALCOHOL < 10 mg/dL (NONE DETECTED); SALICYLATE < 1.0 mg/dL (2.0-20.0)
[2019-03-04 17:01] LABS: TOXIC GRANULATION SLIGHT; TOXIC VACUOLATION PRESENT
[2019-03-04 17:02] LABS: ANISOCYTOSIS 1+; BURR CELLS SLIGHT; OVALOCYTES SLIGHT; PLATELET COMMENT ADEQUATE; PLATELET LARGE PRESENT; TEAR DROP CELLS SLIGHT
== END 2019-03-04 17:05 | disposition home or self-care (01) ==
LOC: ER 15:04
DX: F10.10 Alcohol abuse, uncomplicated (principal); F17.200 Nicotine dependence, unspecified, uncomplicated; E78.00 Pure hypercholesterolemia, unspecified; E11.9 Type 2 diabetes mellitus without complications; Z91.010 Allergy to peanuts; Z90.49 Acquired absence of other specified parts of digestive tract; Z98.51 Tubal ligation status
CPT/HCPCS: 36415; 80053; 80307; 85025; 99283

== ENCOUNTER 2019-05-30 17:06 | Emergency (ER) | payer MEDICAID, OTHER ==
--- NOTE | 2019-05-30 17:46 | ER Document Report ---
ED Medical Screen (RME) - General Chief Complaint: Numbness of Arm Stated Complaint: RIGHT ARM NUMB Time Seen by Provider: 05/30/19 17:44 Primary Care Provider: FOZIA KOLB MD [Primary Care Provider] - Follow up as needed Mode of Arrival: Ambulatory Information source: Patient Notes: 59-year-old female presented to ED for tingling in her right arm that then went up her right arm became numb for a while. She states she is also lost 20 pounds this month. She states she is diabetic type II. She used cocaine yesterday she states that the only time she is used it she smokes 15 or more cigarettes a day and is a heavy drinker at least every day. She states she has not eaten all day today and she took her insulin anyway. She states she does have a history of her gallbladder being removed. Patient is alert oriented respirations regular and unlabored speaking in full sentences. I have greeted and performed a rapid initial assessment of this patient. A comprehensive ED assessment and evaluation of the patient, analysis of test results and completion of medical decision making process will be conducted by an additional ED providers. TRAVEL OUTSIDE OF THE [place] IN LAST 30 DAYS: No - Related Data Allergies/Adverse Reactions: peanuts Allergy (Uncoded 05/30/19 17:34) Past Medical History - Social History Drug Abuse: Cocaine - Past Medical History Cardiac Medical History: Reports: Hx Hypercholesterolemia Pulmonary Medical History: Denies: Hx Tuberculosis Endocrine Medical History: Reports: Hx Diabetes Mellitus Type 2 - "diet controlled" Renal/ Medical History: Denies: Hx Peritoneal Dialysis Psychiatric Medical History: Reports: Hx Depression - anxiety Past Surgical History: Reports: Hx Cholecystectomy, Hx Tubal Ligation. Denies: Hx Pacemaker - Immunizations Hx Diphtheria, Pertussis, Tetanus Vaccination: Yes Physical Exam - Vital signs Vitals: Temp Pulse Resp BP Pulse Ox 98.6 F 115 H 16 102/86 H 96 05/30/19 17:14 05/30/19 17:14 05/30/19 17:14 05/30/19 17:14 05/30/19 17:14 Course - Vital Signs Vital signs: Temp Pulse Resp BP Pulse Ox 98.6 F 115 H 16 102/86 H 96 05/30/19 17:14 05/30/19 17:14 05/30/19 17:14 05/30/19 17:14 05/30/19 17:14 Doctor's Discharge - Discharge Referrals: FOZIA KOLB MD [Primary Care Provider] - Follow up as needed
[2019-05-30] MEDS ORDERED: NORMAL SALINE 1000 ML 1,000 ML IV ONE (17:47)
[2019-05-30 18:15] LABS: ABSOLUTE BASOPHILS # (AUTO) 0.1 10^3/uL (0.0-0.2); ABSOLUTE EOSINOPHILS # (AUTO) 0.1 10^3/uL (0.0-0.6); ABSOLUTE LYMPHOCYTES (AUTO) 3.4 10^3/uL (0.5-4.7); ABSOLUTE MONOCYTES (AUTO) 0.8 10^3/uL (0.1-1.4); ABSOLUTE NEUT (AUTO) 7.1 10^3/uL (1.7-8.2); BASOPHILS % (AUTO) 1.1 % (0-2); HEMATOCRIT 38.9 % (36.0-47.0); HEMOGLOBIN 12.9 g/dL (12.0-15.5); LYMPHOCYTES % (AUTO) 29.3 % (13-45); MEAN CORPUSCULAR HEMOGLOBIN 27.1 pg (27.0-33.4); MEAN CORPUSCULAR HGB CONC 33.2 g/dL (32.0-36.0); MEAN CORPUSCULAR VOLUME 82 fl (80-97); MONOCYTES % (AUTO) 7.3 % (3-13); PLATELET COUNT 308 10^3/uL (150-450); RED BLOOD COUNT 4.76 10^6/uL (3.72-5.28); RED CELL DISTRIBUTION WIDTH 15.1 % (11.5-14.0); SEGMENTED NEUTROPHILS % (AUTO) 61.3 % (42-78); TOTAL CELLS COUNTED % (AUTO) 100 %; WHITE BLOOD COUNT 11.6 10^3/uL (4.0-10.5)
[2019-05-30 18:33] LABS: ALBUMIN 4.9 g/dL (3.5-5.0); ALKALINE PHOSPHATASE 109 U/L (38-126); ANION GAP 12 (5-19); ASPARTATE AMINO TRANSFERASE 26 U/L (14-36); BILIRUBIN,TOTAL 1.5 mg/dL (0.2-1.3); BLOOD UREA NITROGEN 8 mg/dL (7-20); CARBON DIOXIDE 26 mmol/L (22-30); CHLORIDE 101 mmol/L (98-107); CREATINE KINASE 182 U/L (30-135); GLUCOSE 168 mg/dL (75-110); POTASSIUM 4.2 mmol/L (3.6-5.0); TOTAL PROTEIN 8.6 g/dL (6.3-8.2)
[2019-05-30 18:43] LABS: CREATINE KINASE MB 1.39 ng/mL (<4.55); TROPONIN I 0.021 ng/mL
[2019-05-30 18:48] LABS: ANISOCYTOSIS SLIGHT; OVALOCYTES SLIGHT; PLATELET COMMENT ADEQUATE; POIKILOCYTOSIS SLIGHT; SCHISTOCYTES SLIGHT
[2019-05-30 18:49] LABS: POLYCHROMASIA SLIGHT
--- NOTE | 2019-05-30 20:14 | ER Document Report ---
ED General - General Chief Complaint: Numbness of Arm Stated Complaint: RIGHT ARM NUMB Time Seen by Provider: 05/30/19 20:14 Primary Care Provider: FOZIA KOLB MD [Primary Care Provider] - Follow up as needed Mode of Arrival: Ambulatory Information source: Patient Notes: HISTORY OF PRESENT ILLNESS: Patient is a 59-year-old female with a past medical history of diabetes and chronic substance abuse who presents with sudden onset right hand and arm tingling/numbness that resolved after approximately 15 to 20 minutes. Patient reports that she smoked crack cocaine for the first time earlier today, short time later she had the symptom onset that was sudden, quickly resolved. She currently feels to be at her baseline. Location: Right hand/arm Onset: Sudden Provocation: Smoking crack Quality: Numbness Radiation: Right arm Severity: Mild Timing: Now resolved Associated symptoms: Denies chest pain or shortness of breath, no fevers or chills, cough or congestion Hand dominance: Right REVIEW OF SYSTEMS: CONSTITUTIONAL : Denies fever or chills, no sweats. Denies recent illness. EENT: Denies eye, ear, throat, or mouth pain or symptoms. Denies nasal or sinus congestion. CARDIOVASCULAR: Denies chest pain. RESPIRATORY: Denies cough, cold, or chest congestion. Denies shortness of breath, difficulty breathing, or wheezing. GASTROINTESTINAL: Denies abdominal pain. Denies nausea, vomiting, or diarrhea. Denies constipation. GENITOURINARY: Denies difficulty urinating, painful urination, burning, frequency, or blood in urine. FEMALE GENITOURINARY: Denies vaginal bleeding, abnormal or irregular periods. Last menstrual period MUSCULOSKELETAL: Denies neck or back pain or joint pain or swelling. SKIN: Denies rash or skin lesions. HEMATOLOGIC : Denies easy bruising or bleeding. LYMPHATIC: Denies swollen, enlarged glands. NEUROLOGICAL: Positive for right hand numbness now resolved. Denies altered mental status or loss of consciousness. Denies headache. Denies weakness or paralysis or loss of use of either side. Denies problems with gait or speech. PSYCHIATRIC: Denies anxiety or stress or depression. All other systems reviewed and negative. PHYSICAL EXAMINATION: GENERAL: Well-appearing, well-nourished and in no acute distress. HEAD: Atraumatic, normocephalic. No scalp deformity, depression, or crepitance. EYES: Pupils are 3 mm and equal/round/reactive to light, extraocular movements intact, sclera anicteric, conjunctiva are normal. ENT: Nares patent bilaterally, oropharynx clear without exudates or palatal kuldeep keren. Moist mucous membranes. No tonsil hypertrophy. NECK: Normal range of motion, supple without lymphadenopathy. LUNGS: Breath sounds present, equal, and clear to auscultation bilaterally. No wheezes, rales, or rhonchi. HEART: Regular rate and rhythm without murmurs, rubs, or gallops. 2+ peripheral pulses. Normal capillary refill. ABDOMEN: Soft, nontender, nondistended. Normoactive bowel sounds. No guarding, no rebound. No masses appreciated. BACK: Normal contour, no midline tenderness. Rectal exam deferred. GENITAL/PELVC: Deferred. EXTREMITIES: Normal range of motion, no pitting or edema. No cyanosis. NEUROLOGICAL: No focal neurological deficits. Moves all extremities spontaneously and on command. PSYCH: Normal mood, normal affect. No suicidal thoughts/ideations. No homicidal thoughts/ideations. No hallucinations. SKIN: Warm, dry, normal turgor, no rashes or lesions noted. ASSESSMENT AND PLAN: This patient is a 59-year-old female who presents with idiopathic sudden onset of right hand tingling and numbness that radiated up the arm that is now resolved. Most likely represents peripheral neuropathy versus cervical radiculopathy, much less likely to be related to crack cocaine use 1. Will obtain labs, cardiac enzymes, and reassess. 2. Will give Tylenol for headache. TRAVEL OUTSIDE OF THE [place] IN LAST 30 DAYS: No - HPI Onset: This afternoon Onset/Duration: Sudden Quality of pain: No pain Severity: Mild Pain Level: Denies Associated symptoms: None Exacerbated by: Denies Relieved by: Denies Similar symptoms previously: No Recently seen / treated by doctor: No - Related Data Allergies/Adverse Reactions: peanuts Allergy (Uncoded 05/30/19 17:34) Past Medical History - General Information source: Patient - Social History Smoking Status: Current Every Day Smoker Chew tobacco use (# tins/day): No Frequency of alcohol use: Occasional Drug Abuse: Cocaine, Marijuana Lives with: Alone Family History: DM Patient has suicidal ideation: No Patient has homicidal ideation: No - Past Medical History Cardiac Medical History: Reports: Hx Hypercholesterolemia Pulmonary Medical History: Reports: None Denies: Hx Tuberculosis EENT Medical History: Reports: None Neurological Medical History: Reports: None Endocrine Medical History: Reports: Hx Diabetes Mellitus Type 2 - "diet controlled" Renal/ Medical History: Reports: None. Denies: Hx Peritoneal Dialysis Malignancy Medical History: Reports: None GI Medical History: Reports: None Musculoskeletal Medical History: Reports None Skin Medical History: Reports None Psychiatric Medical History: Reports: Hx Depression - anxiety Traumatic Medical History: Reports: None Infectious Medical History: Reports: None Past Surgical History: Reports: Hx Cholecystectomy, Hx Tubal Ligation. Denies: Hx Pacemaker - Immunizations Hx Diphtheria, Pertussis, Tetanus Vaccination: Yes Hx Pneumococcal Vaccination: 04/12/12 Review of Systems - Review of Systems Constitutional: No symptoms reported EENT: No symptoms reported Cardiovascular: No symptoms reported Respiratory: No symptoms reported Gastrointestinal: No symptoms reported Genitourinary: No symptoms reported Female Genitourinary: No symptoms reported Musculoskeletal: No symptoms reported Skin: No symptoms reported Hematologic/Lymphatic: No symptoms reported Neurological/Psychological: See HPI, Numbness, Tingling -: Yes All other systems reviewed and negative Physical Exam - Vital signs Vitals: Temp Pulse Resp BP Pulse Ox 98.6 F 115 H 16 102/86 H 96 05/30/19 17:14 05/30/19 17:14 05/30/19 17:14 05/30/19 17:14 05/30/19 17:14 Interpretation: Normal Course - Re-evaluation Re-evalutation: 05/30/19 23:05 Blood work reveals no acute abnormality or pathology. Will discharge the patient home with strict return precautions and follow-up with primary care. All results were explained to and discussed with the patient, and all questions addressed and answered. The patient voices both understanding and agreeing with the plan. - Vital Signs Vital signs: Temp Pulse Resp BP Pulse Ox 98.7 F 115 H 16 102/86 H 96 05/30/19 19:36 05/30/19 17:14 05/30/19 17:14 05/30/19 17:14 05/30/19 17:14 - Laboratory Result Diagrams: 05/30/19 17:50 05/30/19 17:50 Laboratory results interpreted by me: 05/30/19 05/30/19 05/30/19 17:50 17:50 20:53 WBC 11.6 H RDW 15.1 H Glucose 168 H Total Bilirubin 1.5 H Creatine Kinase 182 H Total Protein 8.6 H Urine Blood MODERATE H Ur Leukocyte Esterase SMALL H - Diagnostic Test Radiology reviewed: Image reviewed, Reports reviewed - EKG Interpretation by Me EKG shows normal: Sinus rhythm Rate: Tachycardia Rhythm: NSR [place]/QRS: No: Right axis deviation, Left axis deviation, RBBB, LBBB, IVCD, LAHB/LAFB, LPHB/LPFB, Bifasicular block Voltage: No: Increased voltage, Consistant with LVH, Decreased voltage, Throu ghout, Limb leads P Waves: No: FILEMON, LAE, Absent, AV Dissociation, Other Heart block present: No: 1st Degree, Mobitz 1, Mobitz 2, CHB (3rd degree block) When compared to previous EKG there are: Previous EKG unavailable Discharge - Discharge Clinical Impression: Peripheral neuropathy Qualifiers: Peripheral neuropathy type: mononeuropathy, unspecified Qualified Code(s): G58.9 - Mononeuropathy, unspecified Condition: Good Disposition: HOME, SELF-CARE Instructions: Neuropathy ([facility]) Additional Instructions: You have been evaluated in the Emergency Department for hand numbness likely related to a neuropathy. While here, you had blood work that was normal and it is now safe to be discharged home. Please follow-up with your primary physician as instructed in one week to be rechecked. Return to the Emergency Department if you experience chest pain, difficulty breathing, numbness/tingling of the extr emities, or any other concerning symptoms. Prescriptions: Diclofenac Sodium 75 mg PO BID #30 tablet. Referrals: FOZIA KOLB MD [Primary Care Provider] - Follow up as needed Print Language: Lithuanian
[2019-05-30] MEDS ORDERED: ACETAMINOPHEN 325 MG TABLET ONE (21:01)
[2019-05-30] MEDS ORDERED: ACETAMINOPHEN 325 MG TABLET PO ONE (21:13)
[2019-05-30 21:23] LABS: APPEARANCE,URINE SLIGHTLY-CLOUDY; BILIRUBIN,URINE NEGATIVE (NEGATIVE); COLOR,URINE YELLOW; GLUCOSE, URINE NEGATIVE (NEGATIVE); KETONES,URINE NEGATIVE (NEGATIVE); LEUKOCYTE ESTERASE,URINE SMALL (NEGATIVE); NITRITE,URINE NEGATIVE (NEGATIVE); PROTEIN,URINE NEGATIVE (NEGATIVE); URINE SPECIFIC GRAVITY 1.017; UROBILINOGEN,URINE NEGATIVE mg/dL (<2.0)
[2019-05-30 21:32] LABS: URINE AMPHETAMINES SCREEN NEGATIVE; URINE BARBITURATES SCREEN NEGATIVE; URINE BENZODIAZEPINES SCREEN NEGATIVE; URINE COCAINE SCREEN UNCONFIRMED POSITIVE; URINE MARIJUANA (THC) SCREEN NEGATIVE; URINE METHADONE SCREEN NEGATIVE; URINE PHENCYCLIDINE SCREEN NEGATIVE
[2019-05-30 23:35] VITALS: BP 104/76
== END 2019-05-30 23:35 | disposition home or self-care (01) ==
LOC: ER 17:06
DX: E11.41 Type 2 diabetes mellitus with diabetic mononeuropathy (principal); R20.0 Anesthesia of skin; R20.2 Paresthesia of skin; R00.0 Tachycardia, unspecified; F14.10 Cocaine abuse, uncomplicated; F12.10 Cannabis abuse, uncomplicated; F17.200 Nicotine dependence, unspecified, uncomplicated; Z91.010 Allergy to peanuts
CPT/HCPCS: 99284; 96360; 36415; 82553; 82550; 83690; 85025; 80053; 81001; 84484; 80307; J3490; J7030

== ENCOUNTER → 2019-07-31 | Outpatient (CLI) | payer MEDICAID ==
--- NOTE | 2019-08-01 18:07 | WOMENS IMAGING REPORT ---
EXAM DESCRIPTION: 3D SCREENING MAMMO BILAT COMPLETED DATE/TIME: 08/01/2019 8:03 am REASON FOR STUDY: ENCNTR SCREEN MAMMOGRAM FOR MALIGNANT NEOPLASM OF BREAST Z12.31 ENCNTR SCREEN AHSAN MOGRAM FOR MALIGNANT NEOPLASM OF [place]I COMPARISON: 2008 EXAM PARAMETERS: Views: Standard craniocaudal and mediolateral oblique views of each breast recorded using digital acquisition and breast tomosynthesis. Read with the assistance of CAD. .[facility] - [employer] Version 9.2 LIMITATIONS: None. FINDINGS: No suspicious masses, suspicious calcifications or architectural distortion. No areas of c oncern. IMPRESSION: NEGATIVE MAMMOGRAM. BIRADS 1. BREAST DENSITY: b. There are scattered areas of fibroglandular density. BIRAD: ASSESSMENT: 1 NEGATIVE RECOMMENDATION: ROUTINE SCREENING Please continue yearly bilateral screening mammography/tomosynthesis in July 2020 COMMENT: The patient has been notified of the results by letter per MQSA requirements. Additional no tification policies are in place for contacting patient with suspicious or incomplete findings. Quality ID #[id number]: The [employer] recommends an annual screening mammogram for women aged 40 years or over. This facility utilizes a reminder system to ensure that all patients receive reminder letters, and/or direct phone calls for appointments. This includes reminders for routine scr eening mammograms, diagnostic mammograms, or other Breast Imaging Interventions when appropriate. Th is patient will be placed in the appropriate reminder system. TECHNICAL DOCUMENTATION: FINDING NUMBER: (1) ASSESSMENT: (1) JOB ID: [id number] [employer]- All Rights Reserved Reading location - IP/workstation name: [email or web address]
== END ==
LOC: WI 14:14
PROVIDERS: ATTEND Internal Medicine Geriatric Medicine
DX: Z12.31 Encounter for screening mammogram for malignant neoplasm of breast (principal)
CPT/HCPCS: 77063; 77067

== ENCOUNTER 2019-09-09 13:59 | Emergency (ER) | payer MEDICAID ==
--- NOTE | 2019-09-09 14:25 | ER Document Report ---
ED Medical Screen (RME) - General Chief Complaint: Abdominal Pain Stated Complaint: VAGINAL PAIN Time Seen by Provider: 09/09/19 14:12 Primary Care Provider: FOZIA KOLB MD [Primary Care Provider] - Follow up as needed Mode of Arrival: Ambulatory Information source: Patient Notes: 59-year-old female patient presented to the emergency department chief complaint of low abdominal pain, pelvic pain and abnormal vaginal discharge. Patient reports she was with a partner who was condom broke. She is concerned she may also have a part of a retained condom inside of her vagina. She reports symptoms have been ongoing for the last 3 to 4 days. She denies fevers but states she does have intermittent hot flashes and chills. Exam: Tenderness across the low abdomen. I have greeted and performed a rapid initial assessment of this patient. A comprehensive ED assessment and evaluation of the patient, analysis of test results and completion of the medical decision making process will be conducted by additional ED providers. I have specifically instructed the patient or family members with the patient to immediately return to any nursing staff should anything change in the patient's condition or with their chief complaint. TRAVEL OUTSIDE OF THE [place] IN LAST 30 DAYS: No - Related Data Allergies/Adverse Reactions: peanuts Allergy (Uncoded 09/09/19 14:10) Home Medications: Tramadol. humalog. Tresibia Past Medical History - Social History Chew tobacco use (# tins/day): No Frequency of alcohol use: None Drug Abuse: Cocaine, Marijuana - Past Medical History Cardiac Medical History: Reports: Hx Hypercholesterolemia Pulmonary Medical History: Denies: Hx Tuberculosis Endocrine Medical History: Reports: Hx Diabetes Mellitus Type 2 - "diet controlled" Renal/ Medical History: Denies: Hx Peritoneal Dialysis Psychiatric Medical History: Reports: Hx Depression - anxiety Past Surgical History: Reports: Hx Cholecystectomy, Hx Tubal Ligation. Denies: Hx Pacemaker - Immunizations Hx Diphtheria, Pertussis, Tetanus Vaccination: Yes Physical Exam - Vital signs Vitals: Temp Pulse Resp BP Pulse Ox 98.3 F 109 H 16 141/89 H 93 09/09/19 14:07 09/09/19 14:07 09/09/19 14:07 09/09/19 14:07 09/09/19 14:07 Course - Vital Signs Vital signs: Temp Pulse Resp BP Pulse Ox 98.3 F 109 H 16 141/89 H 93 09/09/19 14:07 09/09/19 14:07 09/09/19 14:07 09/09/19 14:07 09/09/19 14:07 Doctor's Discharge - Discharge Referrals: FOZIA KOLB MD [Primary Care Provider] - Follow up as needed
--- NOTE | 2019-09-09 15:41 | RADIOLOGY REPORT (SQ) ---
EXAM DESCRIPTION: U/S NON OB PEL TV W/DOPPLER COMPLETED DATE/TIME: 09/09/2019 3:14 pm REASON FOR STUDY: pelvic pain, abn d/c, eval for abscess vs PID COMPARISON: None. TECHNIQUE: Dynamic and static grayscale images acquired of the pelvis via transvaginal approach and recorded on PACS. Additional selected color Doppler and spectral images recorded. LIMITATIONS: None. FINDINGS: UTERUS: Suspect mid uterine intramural fibroid measuring 1.4 cm. Contours normal generall y. ENDOMETRIAL STRIPE: No thickening. Mild fluid within. CERVIX: No nabothian cysts. RIGHT OVARY AND DOPPLER: Limited assessment of Doppler flow due to location of the ovary and regional acoustical interference. No gross suggestion of torsion or mass. LEFT OVARY AND DOPPLER: Numerous hypoechoic masses suggestive of cysts with septation and internal ec hoes. Largest measure just under 2 cm. No suggestion of increased blood flow within or about these lesions as might be seen with abscess. FREE FLUID: None noted. OTHER: No other significant finding. MEASUREMENTS: UTERUS: 7.1 x 3.7 x 4.9 cm ENDOMETRIAL STRIPE: 5.3 mm RIGHT OVARY: 2.6 x 2.0 x 2.0 cm LEFT OVARY: 5.7 x 3.8 x 4.9 cm IMPRESSION: 1. Mild fibroid uterus. 2. No overt ovarian torsion. Limited assessment on the right. 3. Left adnexal region masses are suspected to be complicated cysts, multiple. These could be relate d to hemorrhagic cysts or endometrioma. Less likely abscess given lack of regional hyperemia. In an asymptomatic female, follow-up might include surgical consultation. Given the patient's active pelv ic symptoms, more expeditious followup may be warranted. Followup of asymptomatic indeterminate cysts detected by ultrasound in POSTMENOPAUSAL patients Findings suggestive of but not classic for hemorrhagic cyst, endometrioma or dermoid: *Consider surgical evaluation Note: If cyst is clinically symptomatic or otherwise concerning, other followup may be warranted. Menopause is considered age 50 by radiologist unless age of last period is known. Based on recommenda tions of the Society for Radiologists in Ultrasound Consensus Conference Statement 2010 on management of asymptomatic ovarian and other adnexal cysts imaged at ultrasound. TECHNICAL DOCUMENTATION: JOB ID: [id number] [employer]- All Rights Reserved Rev-01/13 Reading location - IP/workstation name: [email or web address]
[2019-09-09 16:38] LABS: ABSOLUTE BASOPHILS # (AUTO) 0.1 10^3/uL (0.0-0.2); ABSOLUTE EOSINOPHILS # (AUTO) 0.1 10^3/uL (0.0-0.6); ABSOLUTE LYMPHOCYTES (AUTO) 2.3 10^3/uL (0.5-4.7); ABSOLUTE MONOCYTES (AUTO) 0.6 10^3/uL (0.1-1.4); ABSOLUTE NEUT (AUTO) 4.8 10^3/uL (1.7-8.2); BASOPHILS % (AUTO) 1.3 % (0-2); EOSINOPHILS % (AUTO) 1.9 % (0-6); HEMATOCRIT 44.1 % (36.0-47.0); HEMOGLOBIN 14.8 g/dL (12.0-15.5); LYMPHOCYTES % (AUTO) 28.8 % (13-45); MEAN CORPUSCULAR HEMOGLOBIN 27.4 pg (27.0-33.4); MEAN CORPUSCULAR HGB CONC 33.6 g/dL (32.0-36.0); MEAN CORPUSCULAR VOLUME 82 fl (80-97); PLATELET COUNT 302 10^3/uL (150-450); RED CELL DISTRIBUTION WIDTH 16.1 % (11.5-14.0); TOTAL CELLS COUNTED % (AUTO) 100 %; WHITE BLOOD COUNT 7.9 10^3/uL (4.0-10.5)
--- NOTE | 2019-09-09 16:43 | ER Document Report ---
ED General - General Chief Complaint: Abdominal Pain Stated Complaint: VAGINAL PAIN Time Seen by Provider: 09/09/19 14:12 Primary Care Provider: KVNG VAZ MD [ACTIVE STAFF] - Follow up tomorrow FOZIA KOLB MD [Primary Care Provider] - Follow up as needed Mode of Arrival: Ambulatory Notes: Patient is a 59-year-old female who presents to the emergency department with a chief complaint of vaginal dscharge, lower abdominal pain, and pelvic pain. She states that she was having sex with somebody and a condom had broke. She has had her symptoms for the past few days. Denies fevers. Admits to some chills. TRAVEL OUTSIDE OF THE [place] IN LAST 30 DAYS: No - Related Data Allergies/Adverse Reactions: peanuts Allergy (Uncoded 09/09/19 14:10) Home Medications: Tramadol. humalog. Tresibia Past Medical History - General Information source: Patient - Social History Smoking Status: Never Smoker Chew tobacco use (# tins/day): No Frequency of alcohol use: None Drug Abuse: Cocaine, Marijuana Family History: DM Patient has suicidal ideation: No Patient has homicidal ideation: No - Past Medical History Cardiac Medical History: Reports: Hx Hypercholesterolemia Pulmonary Medical History: Denies: Hx Tuberculosis Endocrine Medical History: Reports: Hx Diabetes Mellitus Type 2 - "diet controlled" Renal/ Medical History: Denies: Hx Peritoneal Dialysis Psychiatric Medical History: Reports: Hx Depression - anxiety Past Surgical History: Reports: Hx Cholecystectomy, Hx Tubal Ligation. Denies: Hx Pacemaker - Immunizations Hx Diphtheria, Pertussis, Tetanus Vaccination: Yes Hx Pneumococcal Vaccination: 04/12/12 Review of Systems - Review of Systems Notes: REVIEW OF SYSTEMS: CONSTITUTIONAL : Denies recent illness. Denies recent unintentional weight loss. Denies fever, chills, or sweats. EENT: Denies eye, ear, throat, or mouth pain, discharge, or symptoms. Denies nasal or sinus congestion. CARDIOVASCULAR: Denies chest pain. RESPIRATORY: Denies shortness of breath, cough, congestion, difficulty breathing, or wheezing. GASTROINTESTINAL: Denies nausea, vomiting, and diarrhea. Denies abdominal pain. Denies constipation. Last BM: GENITOURINARY: Denies difficulty urinating, burning, blood in urine, urgency or frequency. FEMALE GENITOURINARY: See HPI. MUSCULOSKELETAL: Denies neck and back pain. Denies joint pain or swelling. SKIN: Denies rash, itchiness, or lesions HEMATOLOGIC : Denies easy bruising or bleeding. LYMPHATIC: Denies swollen, painful, enlarged glands. NEUROLOGICAL: Denies no numbness or tingling denies weakness. Denies headache. Denies altered mental status. Denies alteration in speech. PSYCHIATRIC: Denies stress, anxiety, alteration in sleep patterns, or depression. All other systems reviewed and negative. Physical Exam - Vital signs Vitals: Temp Pulse Resp BP Pulse Ox 98.3 F 109 H 16 141/89 H 93 09/09/19 14:07 09/09/19 14:07 09/09/19 14:07 09/09/19 14:07 09/09/19 14:07 - Notes Notes: PHYSICAL EXAMINATION: GENERAL: Appears well, healthy, well-nourished, no acute distress. HEAD: Normocephalic, atraumatic. EYES: PERRL, conjunctiva normal, all extraocular movements intact, sclera nonicteric ENT: Moist mucous membranes. NECK: Supple, no noticeable swelling, redness, rash. Normal range of motion. LUNGS: Equal breath sounds bilaterally and clear to auscultation. No wheezes rales or rhonchi. CARDIOVASCULAR: S1-S2, regular rate, regular rhythm. Radial pulses 2+, normal. ABDOMEN: Normoactive bowel sounds. Soft, nontender, no guarding, no rebound tenderness, and no masses palpated. EXTREMITIES: Normal strength and range of motion, no pitting or edema. No cyanosis. NEUROLOGICAL: Moves all extremities upon command. Strength 5/5 in all extremities. PSYCH: Normal mood, normal affect. SKIN: Warm, dry. No rash, lesions, ulcerations noted. Normal skin turgor. GENERAL TECHNICIAN: Cervical motion tenderness noted. White discharge noted. Course - Re-evaluation Re-evalutation: 09/09/19 16:45 Anderia, PCT at bedside. Pelvic exam done. 09/09/19 17:[address] Vaz reviewed ultrasound and she is concerned for a pathological cyst and is recommending a CT at this time. She is concerned for malignancy. Patient also has yeast on her wet mount. She will be treated with Diflucan. 09/09/19 19:40 CT of the abdomen pelvis is done and there are uterine fibroids noted. She also has a 2.9 cm cyst on her liver edge. I instructed the patient to follow-up with OB tomorrow. Instructed her that if she does not hear from them tomorrow, to call. She will also be sent home with another dose of Diflucan. She is in agreement with this plan. Follow-up precautions were given. Verbal discharge instructions were given to the patient. They verbalized understanding. They are stable for discharge. - Vital Signs Vital signs: Temp Pulse Resp BP Pulse Ox 98.3 F 109 H 16 141/89 H 93 09/09/19 14:07 09/09/19 14:07 09/09/19 14:07 09/09/19 14:07 09/09/19 14:07 - Laboratory Result Diagrams: 09/09/19 16:20 09/09/19 16:20 Laboratory results interpreted by me: 09/09/19 09/09/19 16:20 16:20 RBC 5.40 H RDW 16.1 H Glucose 270 H Total Protein 8.5 H Discharge - Discharge Clinical Impression: Pelvic pain, Yeast infection Uterine fibroid Qualifiers: Uterine leiomyoma location: unspecified location Qualified Code(s): D25.9 - Leiomyoma of uterus, unspecified Condition: Stable Disposition: HOME, SELF-CARE Additional Instructions: You were seen today in the emergency department for pelvic pain. You have a yeast infection. Please take the medication prescribed to you to help clear it up. Please follow-up with OB tomorrow in regards to your results on your ultrasound. Prescriptions: Fluconazole [Diflucan] 150 mg PO ONCE PRN #1 tablet PRN Reason: Referrals: FOZIA KOLB MD [Primary Care Provider] - Follow up as needed KVNG VAZ MD [ACTIVE STAFF] - Follow up tomorrow
[2019-09-09 16:49] LABS: ALBUMIN 4.9 g/dL (3.5-5.0); ALKALINE PHOSPHATASE 100 U/L (38-126); ANION GAP 11 (5-19); ASPARTATE AMINO TRANSFERASE 20 U/L (14-36); BILIRUBIN,DIRECT 0.2 mg/dL (0.0-0.4); BILIRUBIN,TOTAL 1.1 mg/dL (0.2-1.3); BLOOD UREA NITROGEN 15 mg/dL (7-20); CALCIUM 10.2 mg/dL (8.4-10.2); CARBON DIOXIDE 29 mmol/L (22-30); CHLORIDE 100 mmol/L (98-107); GLUCOSE 270 mg/dL (75-110); POTASSIUM 4.1 mmol/L (3.6-5.0); TOTAL PROTEIN 8.5 g/dL (6.3-8.2)
[2019-09-09 16:50] LABS: T.VAGINALIS (WET MOUNT) NO TRICHOMONAS SEEN
[2019-09-09 16:51] LABS: RBCS (WET MOUNT) FEW RBCS SEEN; WBCS (WET MOUNT) 1+ WBCS SEEN; YEAST (WET MOUNT) YEAST SEEN
[2019-09-09] MEDS ORDERED: CEFTRIAXONE 1 GM/D5W RTU 1 GM/50 ML RTUPB IV ONE (16:59)
[2019-09-09] MEDS ORDERED: NORMAL SALINE 1000 ML 1,000 ML IV ONE ×2 (16:59→17:54)
[2019-09-09 17:00] LABS: CHLAM PCR NOT DETECTED (NOT DETECT)
[2019-09-09 17:04] LABS: ANISOCYTOSIS 1+; OVALOCYTES 1+; PLATELET COMMENT ADEQUATE
[2019-09-09] MEDS ORDERED: FLUCONAZOLE 100 MG TABLET PO ONE (17:07)
[2019-09-09 17:46] LABS: APPEARANCE,URINE SLIGHTLY-CLOUDY; BILIRUBIN,URINE NEGATIVE (NEGATIVE); COLOR,URINE YELLOW; GLUCOSE, URINE NEGATIVE (NEGATIVE); KETONES,URINE NEGATIVE (NEGATIVE); LEUKOCYTE ESTERASE,URINE NEGATIVE (NEGATIVE); NITRITE,URINE NEGATIVE (NEGATIVE); PROTEIN,URINE NEGATIVE (NEGATIVE); URINE SPECIFIC GRAVITY 1.026; UROBILINOGEN,URINE NEGATIVE mg/dL (<2.0)
--- NOTE | 2019-09-09 19:15 | RADIOLOGY REPORT (SQ) ---
EXAM DESCRIPTION: CT ABD/PELVIS WITH IV ONLY COMPLETED DATE/TIME: 09/09/2019 6:54 pm REASON FOR STUDY: abdominal pain COMPARISON: None. TECHNIQUE: CT scan of the abdomen and pelvis performed using helical scanning technique with dynamic intravenous contrast injection. No oral contrast. Images reviewed with lung, soft tissue, and bone w indows. Reconstructed coronal and sagittal MPR images reviewed. Delayed images for evaluation of the urinary system also acquired. All images stored on PACS. All CT scanners at this facility use dose modulation, iterative reconstruction, and/or weight based d osing when appropriate to reduce radiation dose to as low as reasonably achievable (ALARA). [facility]: Dose Right [facility]: CareDose [facility]: Dose Right [facility]: Teradose 4D [facility]: AiCuris CONTRAST TYPE AND DOSE: contrast/concentration: Isovue 350.00 mg/ml; Total Contrast Delivered: 95.0 ml; Total Saline Delivered: 51.0 ml RENAL FUNCTION: GFR > 60. RADIATION DOSE: CT Rad equipment meets quality standard of care and radiation dose reduction techniq ues were employed. CTDIvol: 10.8 - 15.2 mGy. DLP: 1284 mGy-cm.. LIMITATIONS: None. FINDINGS: LOWER CHEST: No significant findings. LIVER: Normal size. No enhancing masses. 2.9 cm cyst in the anterior-inferior right lobe along the l iver edge. No dilated ducts. SPLEEN: Normal size. No focal lesions. PANCREAS: No masses identified. No significant calcifications. No adjacent inflammation or peripancre atic fluid collections. Pancreatic duct not dilated. GALLBLADDER: Surgically absent. ADRENAL GLANDS: No significant masses. RIGHT KIDNEY AND URETER: No cysts identified. No solid masses identified. No calcified stones. No hyd ronephrosis or hydroureter. LEFT KIDNEY AND URETER: No cysts identified. No solid masses identified. No calcified stones. No hydr onephrosis or hydroureter. AORTA AND VESSELS: No aneurysm. No dissection. Renal arteries, SMA, celiac without significant stenos is. RETROPERITONEUM: No bulky retroperitoneal adenopathy. BOWEL AND PERITONEAL CAVITY: No obstruction or inflammatory changes. No free fluid. APPENDIX: Normal. PELVIS: Uterine fibroids. No free fluid. Unremarkable bladder. ABDOMINAL WALL: No masses. No hernias. BONES: No acute findings. OTHER: No other significant finding. IMPRESSION: No acute inflammatory changes or free fluid. TECHNICAL DOCUMENTATION: JOB ID: [id number] [place]-[id number] Quality ID # [id number]: Final reports with documentation of one or more dose reduction techniques (e.g., Au tomated exposure control, adjustment of the mA and/or kV according to patient size, use of iterative reconstruction technique) 2010 [employer]- All Rights Reserved Reading location - IP/workstation name: [email or web address]
[2019-09-09 19:50] VITALS: BP 136/91
== END 2019-09-09 19:54 | disposition home or self-care (01) ==
LOC: ER 13:59
DX: D25.9 Leiomyoma of uterus, unspecified (principal); B37.49 Other urogenital candidiasis; N89.8 Other specified noninflammatory disorders of vagina; R10.2 Pelvic and perineal pain; R10.30 Lower abdominal pain, unspecified; E78.00 Pure hypercholesterolemia, unspecified; Z91.010 Allergy to peanuts; Z90.49 Acquired absence of other specified parts of digestive tract; Z98.51 Tubal ligation status
CPT/HCPCS: 99284; 96360; 36415; 87210; 85025; 80053; 81001; 87491; 87591; 76830; 93976; 74177; J7030; J3490

== ENCOUNTER → 2019-09-10 | Outpatient (CLI) | payer MEDICAID ==
[2019-09-12 08:11] LABS: HEPATITIS B SURFACE AB QUAL Reactive (.)
[2019-09-12 08:42] LABS: CANCER ANTIGEN (CA) 125 18.3 U/mL (0.0-38.1)
== END ==
LOC: OD 16:31
PROVIDERS: ATTEND Obstetrics & Gynecology
DX: N89.8 Other specified noninflammatory disorders of vagina (principal); Z20.2 Contact with and (suspected) exposure to infections with a predominantly sexual mode of transmission
CPT/HCPCS: 36415; 86304; 86592; 86706

== ENCOUNTER 2020-03-07 07:11 | Inpatient (IN) | payer MEDICAID ==
[2020-03-03 12:25] LABS: HEMATOCRIT 42.5 % (36.0-47.0); HEMOGLOBIN 13.9 g/dL (12.0-15.5); MEAN CORPUSCULAR HEMOGLOBIN 26.9 pg (27.0-33.4); MEAN CORPUSCULAR HGB CONC 32.7 g/dL (32.0-36.0); MEAN CORPUSCULAR VOLUME 82 fl (80-97); PLATELET COUNT 347 10^3/uL (150-450); RED BLOOD COUNT 5.17 10^6/uL (3.72-5.28); RED CELL DISTRIBUTION WIDTH 17.7 % (11.5-14.0); WHITE BLOOD COUNT 8.1 10^3/uL (4.0-10.5)
[2020-03-03 12:30] LABS: AMORPHOUS SEDIMENT,URINE TRACE /HPF; APPEARANCE,URINE SLIGHTLY-CLOUDY; BILIRUBIN,URINE NEGATIVE (NEGATIVE); COLOR,URINE YELLOW; GLUCOSE, URINE NEGATIVE (NEGATIVE); KETONES,URINE NEGATIVE (NEGATIVE); LEUKOCYTE ESTERASE,URINE SMALL (NEGATIVE); NITRITE,URINE NEGATIVE (NEGATIVE); PROTEIN,URINE NEGATIVE (NEGATIVE); URINE SPECIFIC GRAVITY 1.021; UROBILINOGEN,URINE NEGATIVE mg/dL (<2.0)
--- NOTE | 2020-03-03 12:31 | RADIOLOGY REPORT (SQ) ---
EXAM DESCRIPTION: CHEST PA/LATERAL IMAGES COMPLETED DATE/TIME: 03/03/2020 12:01 pm REASON FOR STUDY: PRE-OP COMPARISON: 08/07/2015 EXAM PARAMETERS: NUMBER OF VIEWS: two views TECHNIQUE: Digital Frontal and Lateral radiographic views of the chest acquired. RADIATION DOSE: NA LIMITATIONS: none FINDINGS: LUNGS AND PLEURA: No opacities, masses or pneumothorax. No pleural effusion. MEDIASTINUM AND HILAR STRUCTURES: No masses or contour abnormalities. HEART AND VASCULAR STRUCTURES: Heart normal size. No evidence for failure. BONES: No acute findings. HARDWARE: None in the chest. OTHER: No other significant finding. IMPRESSION: NO SIGNIFICANT RADIOGRAPHIC FINDING IN THE CHEST. TECHNICAL DOCUMENTATION: JOB ID: [id number] 2010 [employer]- All Rights Reserved Reading location - IP/workstation name: [email or web address]
[2020-03-03 12:42] LABS: ALBUMIN 4.8 g/dL (3.5-5.0); ALKALINE PHOSPHATASE 80 U/L (38-126); ANION GAP 11 (5-19); ASPARTATE AMINO TRANSFERASE 20 U/L (14-36); BLOOD UREA NITROGEN 20 mg/dL (7-20); CALCIUM 9.8 mg/dL (8.4-10.2); CARBON DIOXIDE 19 mmol/L (22-30); CHLORIDE 111 mmol/L (98-107); GLUCOSE 121 mg/dL (75-110); POTASSIUM 4.8 mmol/L (3.6-5.0); TOTAL PROTEIN 7.9 g/dL (6.3-8.2)
--- NOTE | 2020-03-03 13:12 | EKG REPORT ---
SEVERITY:- ABNORMAL ECG - SINUS RHYTHM PROBABLE LEFT ATRIAL ABNORMALITY CONSIDER ANTEROSEPTAL INFARCT BORDERLINE T WAVE ABNORMALITIES PROLONGED QT INTERVAL : Confirmed by: Rey Porras MD 03-Mar-2020 13:10:51
[2020-03-04 07:16] LABS: AFP SERUM TUMOR MARKER 4.1 ng/mL (0.0-8.3)
[2020-03-07 07:05] LABS: INHIBIN B <7.0 pg/mL (0.0-16.9)
[~2020-03-07 07:11] MED LIST: CEFAZOLIN 2 GM/D5W RTU 2 GM/50 ML RTUPB IV ONE; DEXAMETHASONE SOD PHOSPHATE INJ 4 MG/1 ML VIAL ONE; FENTANYL CITRATE INJ/PF 100 MCG/2 ML AMPUL ONE; LACTATED RINGERS 1000 ML IV PRN; LIDOCAINE 0.5% INJ-PF (5 MG/ML) 50 ML SDV SUBCUT PRN; MIDAZOLAM 2 MG/2 ML INJ ONE; ONDANSETRON HCL INJ/PF 4 MG/2 ML SDV ONE; PROPOFOL INJ 200 MG/20 ML VIAL IV ONE
[2020-03-07 07:42] LABS: URINE AMPHETAMINES SCREEN NEGATIVE; URINE BARBITURATES SCREEN NEGATIVE; URINE BENZODIAZEPINES SCREEN NEGATIVE; URINE COCAINE SCREEN NEGATIVE; URINE MARIJUANA (THC) SCREEN NEGATIVE; URINE METHADONE SCREEN NEGATIVE; URINE PHENCYCLIDINE SCREEN NEGATIVE
[2020-03-07] MEDS ORDERED: BUPIVACAINE HCL 0.25 % INJ/PF (2.5 MG/1 ML) 30 ML VIAL ONE (08:19)
[2020-03-07] MEDS ORDERED: BUPIVACAINE HCL 0.25% /EPINEPHRINE INJ/PF 30 ML SDV ONE (08:20)
[2020-03-07] MEDS ORDERED: VASOPRESSIN INJ 20 UNIT/1 ML VIAL ONE (08:20)
[2020-03-07] MEDS ORDERED: ONDANSETRON HCL INJ/PF 4 MG/2 ML SDV IV PRN ×2 (09:48→12:24)
[2020-03-07] MEDS ORDERED: DIPHENHYDRAMINE HCL 50 MG/ML VIAL IV PRN (09:48)
[2020-03-07] MEDS ORDERED: FENTANYL CITRATE INJ/PF 100 MCG/2 ML AMPUL IV PRN ×3 (09:48)
[2020-03-07] MEDS ORDERED: MEPERIDINE HCL/PF INJ 25 MG/1 ML DISP.SYRIN IV PRN (09:48)
[2020-03-07] MEDS ORDERED: PROMETHAZINE HCL INJ 25 MG/1 ML VIAL IV PRN ×2 (09:48)
[2020-03-07] MEDS ORDERED: MORPHINE SULFATE 10 MG/ML INJ IV PRN ×2 (09:48→16:51)
[2020-03-07] MEDS ORDERED: RINGERS SOLUTION,LACTATED 1,000 ML IV PRN (12:14)
[2020-03-07] MEDS ORDERED: KETOROLAC TROMETHAMINE INJ/PF 30 MG/1 ML SDV IV PRN (12:14)
[2020-03-07] MEDS ORDERED: IBUPROFEN 800 MG TABLET PO PRN (12:14)
[2020-03-07] MEDS ORDERED: HYDROMORPHONE HCL INJ/PF 2 MG/ML AMPULE IV PRN (12:14)
[2020-03-07] MEDS ORDERED: GLUCAGON,HUMAN RECOMB 1 MG INJ IM PRN (12:22)
[2020-03-07] MEDS ORDERED: DEXTROSE 40% GEL 15 GM TUBE PO PRN ×2 (12:22)
[2020-03-07] MEDS ORDERED: DEXTROSE 50%-WATER 25 GM/50 ML DISP.SYRIN IV PRN ×2 (12:22)
[2020-03-07] MEDS ORDERED: SUGAMMADEX SODIUM 200 MG/2 ML SDV IV ONE (12:22)
[2020-03-07] MEDS ORDERED: PROMETHAZINE HCL INJ 50 MG/1 ML VIAL IM PRN (12:24)
--- NOTE | 2020-03-07 12:48 | Operative Report ---
Operative Report DATE OF SURGERY: 03/07/20 PREOPERATIVE DIAGNOSIS: Pelvic pain. Fibroid uterus. Complicated cysts left o vary. Post menopausal bleeding. Tobacco use. Diabetes II POSTOPERATIVE DIAGNOSIS: Same as above. Adhesion between omentum and anterior abodminal wall. OPERATION: Laparoscopic assisted vaginal hysterectomy with bilateral salpingo- oophorectomies. SURGEON: TRAY MERRILL ANESTHESIA: GA TISSUE REMOVED OR ALTERED: Cervix, uterus, bilateral fallopian tubes and ovaries COMPLICATIONS: None ESTIMATED BLOOD LOSS: 75 cc INTRAOPERATIVE FINDINGS: Uterus normal size. Light scarring on outside of uterus that looked like white web like material, normal bilateral fallopian tubes with evidence of prior ligation bilaterally, right ovary grossly normal and left ovary was double size with smooth white capsule. Cervix grossly normal. PROCEDURE: The patient was taken to the operating room and placed on the OR table in the supine position. General anesthesia was administered and found to be adequate. She was then placed in the dorsal lithotomy position and prepped, then draped in usual sterile fashion. 2 grams of Ancef were given IV prior to the procedure for infection prophylaxis. A timeout was taken. Rahman cather placed to drain the bladder. A weighted speculum was placed in the posterior vaginal vault and a Sharma retractor was used to bring the cervix into good view. A single-tooth tenaculum was used to grasp the anterior lip of the cervix and a V care uterine manipulator was placed without difficulty. All instruments were removed from the vagina besides the V care and the patient's legs were lowered. Sterile gloves were then donned and attention was turned of the patient's abdomen where a 1 cm infraumbilical incision was made and carried down to the level the rectus fascia. The rectus fascia was then grasped with 2 Kocker clamps and incised with Urbie scissors. A digital sweep was done noting entry into the abdomen with no adhesions at the site of entry. A 0 Vicryl suture was then used to tag the fascia on each side. The Kocker clamps were then removed. The laparoscope was inserted verifying placement into the patient's abdomen. CO2 gas was used to insufflate the abdomen to quantity sufficient for laparoscopy: approximately 15 mmHg. Under direct visualization two 5 mm ports were placed one in the right lower and one in the left lower quadrant. Adhesions between the omentum and the anterior abdominal wall were noted in the left anterior mid abdomen. Using a grasper and blunt probe the pelvic anatomy was examined and pictures were obtained. Both ureters were indentified and noted to be out of harms way. The LigaSure was then used to cross clamp, coagulate and cut the mesosalpinx along the right fallopian tube to the level uterus. Tube was removed and labeled right fallopian tube. The round ligament was grasped on the right coagulated and cut using the LigaSure. The righht utero-ovarian ligament was then crossclamped, coagulated and ligated using the LigaSure. Dissection continued across the anterior surface of the uterus just across the midline. A bladder flap was developed and the bladder was dissected out of harm's way. The uterine arteries were skeletonized and using the LigaSure they were clamped, coagulated and cut. This continued in a segmental fashion to the level of the cervix. This was repeated on the left side starting with the left fallopian tube. The mesosalpinx was taken down in a segmental fashion, tube removed and labeled left tube. The left round ligament was then identified, crossclamped, coagulated and cut. The left utero-ovarian ligament was then identified crossclamped, coagulated and cut using the LigaSure. Due to the size of the left ovary the uterovarian ligament was cross- clamped, coagulated and cut. The left ovary was moved to the posterior cul-de-sac. The remaining mesosalpinx was taken down over the anterior surface of the uterus and the bladder flap was further developed from the left side. The bladder was noted to be entirely out of harm's way. The left uterine vessels were identified skeletonized, crossclamped, coagulated and ligated with the LigaSure to the level of the cervix. At this point decision was made to proceed with colpotomy. Once the colpotomy was completed, the uterus, cervix and right ovary were removed through the patient's vagina. The left ovary had migrated out of the pelvis and once found it was brought to the pelvis and removed as well. These will be sent to the lab for later pathologic analysis. All instruments were removed and CO2 gas was allowed to escape from the patient's abdomen. Attention was turned to the patient's vagina. The weighted speculum was placed in the posterior vaginal vault and a retractor was used to see the apex of the vaginal cuff. The angles were grasped bilaterally with Allis clamps. 0 Vicryl suture was used to stitch the angles bilaterally incorporating the uterosacral ligament. A modified Shah's culdoplasty was done in standard fashion. The remaining portion of the vaginal cuff was then closed using interrupted 0 Vicryl suture in a series of [id number] stitches. The cuff was noted to be intact and hemostatic. Copious amounts of warm irrigation, normal saline were used to clear any debris from the vagina and the incision was inspected once more and noted to be nicely hemostatic. Sterile gloves were then donned and attention was turned back to the patient's abdomen. The laparoscope was reinserted and the pelvis was irrigated. Good hemostasis was noted. The 2 lower quadrant ports were removed under direct visualization. No bleeding was noted at either site. Laparoscope and infra umbilical trocar was removed after CO2 gas was allowed to escape from the patient's abdomen. The rectus fascia was closed in the infraumbilical area with the previously placed 0 Vicryl sutures. All skin incisions were closed with 3-0 Monocryl suture in a series of interrupted stitches. The skin incision was then cleaned, dried and Dermabond was applied over each incision. All instrument sponge and needle counts were correct x3 for the procedure. The patient tolerated the procedure well and will proceed to recovery in stable condition.
[2020-03-07] MEDS ORDERED: ALBUTEROL SULFATE 0.083% NEB 2.5 MG/3 ML AMPUL NEB ONE ×2 (12:50→12:59)
[2020-03-07] MEDS: MORPHINE SULFATE 10 MG/ML INJ ONE ×2 (13:15→13:25)
--- NOTE | 2020-03-07 13:17 | RADIOLOGY REPORT (SQ) ---
EXAM DESCRIPTION: CHEST SINGLE VIEW IMAGES COMPLETED DATE/TIME: 03/07/2020 12:58 pm REASON FOR STUDY: POST OP PACU COMPARISON: AP view of the chest from 03/03/2019 EXAM PARAMETERS: NUMBER OF VIEWS: One view. TECHNIQUE: An AP view of the chest was obtained. RADIATION DOSE: NA LIMITATIONS: None. FINDINGS: LUNGS AND PLEURA: Diffuse patchy bilateral parenchymal opacities. There is no sizable ple ural effusion or pneumothorax. MEDIASTINUM AND HILAR STRUCTURES: No mediastinal or hilar contour abnormality. HEART AND VASCULAR STRUCTURES: The cardiac silhouette and pulmonary vasculature are within normal hernández its. BONES: No acute findings. HARDWARE: None in the chest. OTHER: No other finding. IMPRESSION: Diffuse patchy bilateral parenchymal opacities - correlate for pulmonary edema/volume ov erload. TECHNICAL DOCUMENTATION: JOB ID: [id number] 2010 [employer]- All Rights Reserved Reading location - IP/workstation name: [email or web address]
[2020-03-07] MEDS ORDERED: FUROSEMIDE INJ/PF 20 MG/2 ML SDV IV ONE (13:25)
[2020-03-07] MEDS ORDERED: FUROSEMIDE INJ/PF 40 MG/4 ML SDV ONE (13:31)
[2020-03-07] MEDS ORDERED: GLYCOPYRROLATE 1 MG/5 ML VIAL ONE (13:53)
[2020-03-07] MEDS ORDERED: SUCCINYLCHOLINE CHLORIDE INJ 200 MG/10 ML VIAL ONE (13:53)
[2020-03-07] MEDS ORDERED: NEOSTIGMINE METHYLSULFATE 10 MG/10 ML VIAL ONE (13:53)
[2020-03-07] MEDS ORDERED: DEXAMETHASONE SOD PHOSPHATE INJ 4 MG/1 ML VIAL ONE (13:53)
[2020-03-07] MEDS ORDERED: VECURONIUM BROMIDE INJ 10 MG VIAL IV ONE (13:53)
[2020-03-07] MEDS ORDERED: CEFAZOLIN 2 GM/D5W RTU 2 GM/50 ML RTUPB IV SCH (14:00)
--- NOTE | 2020-03-07 15:00 | PDOC CRITICAL CARE PROG REPORT ---
General Date:: 03/07/20 Hospital Day:: 1 Resuscitation Status: Full Code Events in the past 12 to 24 Hours:: Post-op hysterectomy. pulmonary edema, probable volume overload. Review of systems relevant to events:: Pulmonary Reason for ICU Addmission:: Evaluation. - Medications: Medications reviewed and adjusted accordingly: Yes Vasopressors:: None Sedation:: None Physical Exam Vital Signs: Temp Pulse Resp BP Pulse Ox 98.1 F 81 20 116/79 96 03/07/20 07:30 03/07/20 07:30 03/07/20 07:30 03/07/20 07:30 03/07/20 07:30 Intake & Output 03/06/20 03/07/20 03/08/20 06:59 06:59 06:59 Intake Total 0 Balance 0 Weight 79 kg Weight/Height Weight 79 kg Height 5 ft 5 in General appearance: PRESENT: no acute distress, cooperative Head exam: PRESENT: atraumatic, normocephalic Eye exam: PRESENT: conjunctiva pink, EOMI, PERRLA. ABSENT: scleral icterus Ear exam: PRESENT: normal external ear exam Mouth exam: PRESENT: moist, tongue midline Respiratory exam: PRESENT: crackles, other - Crackles heard half way up lung painting, mild.. ABSENT: rales, rhonchi, wheezes Cardiovascular exam: PRESENT: RRR. ABSENT: diastolic murmur, rubs, systolic murmur GI/Abdominal exam: PRESENT: normal bowel sounds, soft, other - intact.. ABSENT: distended, guarding, mass, organolmegaly, rebound, tenderness Rectal exam: PRESENT: deferred Gentrourinary exam: PRESENT: indwelling catheter Extremities exam: PRESENT: full ROM. ABSENT: calf tenderness, clubbing, pedal edema Musculoskeletal exam: PRESENT: normal inspection Neurological exam: PRESENT: alert, awake, oriented to person, oriented to place, oriented to time, oriented to situation, CN II-XII grossly intact, other - Sleepy. ABSENT: motor sensory deficit Psychiatric exam: PRESENT: appropriate affect, normal mood. ABSENT: homicidal ideation, suicidal ideation Skin exam: PRESENT: dry, intact, warm. ABSENT: cyanosis, rash Laboratory/Radiographs Laboratory Results: 03/03/20 11:16 03/03/20 11:16 Impressions: Chest X-Ray 03/07/20 12:41 IMPRESSION: Diffuse patchy bilateral parenchymal opacities - correlate for pulmonary edema/volume overload. EKG: NSR without discerable ectopy or ischemia. All labs, radiographs, diagnostic studies and EKGs were personally reviewed: Yes In addition, reports of radiographic and diagnostic studies were read: Yes Assessment and Plan - Diagnosis (1) Volume overload Qualifiers: Hypervolemia type: other Qualified Code(s): E87.79 - Other fluid overload Is this a current diagnosis for this admission?: Yes Plan: The patient was said to have received 2.5 L in the OR. This is not a tremendous amount. Nevertheless she is in an element of pulmonary edema by CXR. She has received lasix and is putting out urine. She has no chest pain, dysrythmia, HTN, hx cardiac issues. She should come of bipap soon and recover normally. I would suggest an echocardiogram to asses valves and EF which are probably good since surgery, besides this, was uneventful. Suggest IMC for the night until off bipap. (2) Diabetes type 2, controlled Is this a current diagnosis for this admission?: Yes Plan: Controlled (3) Pulmonary edema Qualifiers: Chronicity: acute Qualified Code(s): J81.0 - Acute pulmonary edema Is this a current diagnosis for this admission?: Yes Plan: As asbove. She is female, not elderly and no HTN. Risk factors for diastolic dysfunction are low but she is acting like this. Plan Summary: She does not need the ICU at this time. Dr Castillo consulted for medical cosult. Dr. Herring informed. Critical Time Critical Time (minutes): 35 Level of Care: IMCU Anticipated discharge: Home Within: Other -: 1. The care of a critical patient is a dynamic process. This note is a commercial pest control representative synopsis but static in nature. The timeframe for treatments given in order is not necessarily the actual time these treatments may have been done. 2. This patient requires critical care secondary to ongoing requirements for therapy not offered or safe outside the critical care environment. Transfer to a lower level of care will result in altered life or limb morbidity and morta lity. 3. Multidisciplinary rounds completed. 4. ABCDE bundle addressed.
[2020-03-07] MEDS ORDERED: NICOTINE 14 MG/24 HR PATCH.TD24 TD PRN (16:45)
[2020-03-07] MEDS ORDERED: NITROGLYCERIN 0.4 MG/TAB 25 TAB/BOTTLE SL PRN (16:52)
--- NOTE | 2020-03-07 16:57 | XCELERA REPORT ---
[address] [address] Transthoracic Echocardiogram Report Name: MADY YBARRA Age: 60 yrs Gender: Female : 1960 Patient Status: Outpatient Patient Location: [facility]^A Study Date: 03/07/2020 02:24 PM Height: 65 in Weight: 174 lb BSA: 1.9 m2 Reason For Study: pulm edema Ordering Physician: TRAY MERRILL Performed By: Gia Brito Interpretation Summary The left ventricle is normal in size. Left ventricular systolic function is severely reduced. The Ejection Fraction estimate is 20-25%. LV diastolic function could not be adequately assessed. Severe global hypokinesis with anterior wall dyskinesis noted on the short axis views. There is no thrombus. Small, hemodynamically insignificant pericardial effusion. Trace TR. No prior studies for comparison. MMode/2D Measurements & Calculations RVDd: 2.1 cm LVIDd: 4.9 cm FS: 8.9 % Ao root diam: IVSd: 0.86 cm LVIDs: 4.5 cm EDV(Teich): 3.0 cm LVPWd: 1.1 cm 112.3 ml Ao root area: ESV(Teich): 90.3 ml 6.9 cm2 EF(Teich): 19.6 % EDV(MOD-sp4): SV(MOD-sp4): 115.1 ml 7.3 ml ESV(MOD-sp4): 107.8 ml EF(MOD-sp4): 6.4 % Doppler Measurements & Calculations MV E max wiley: MV dec slope: Ao V2 max: LV V1 max P.3 cm/sec 120.8 cm/sec 5.7 mmHg MV A max wiley: 563.9 cm/sec2 Ao max PG: LV V1 max: 95.9 cm/sec MV dec time: 0.15 sec 5.8 mmHg 119.5 cm/sec MV E/A: 0.89 PA V2 max: TR max wiley: 84.6 cm/sec 138.7 cm/sec PA max P.9 mmHgTR max P.7 mmHg Left Ventricle The left ventricle is normal in size. Left ventricular systolic function is severely reduced. The Ejection Fraction estimate is 20-25%. LV diastolic function could not be adequately assessed. Severe global hypokinesis with anterior wall dyskinesis noted on the short axis views. There is no thrombus. Right Ventricle The right ventricle is normal size. The right ventricular systolic function is normal. Atria The right atrium is normal. The left atrial size is normal. The interatrial septum is difficult to see, but appears to be grossly normal. Mitral Valve There is mild mitral leaflet calcification. There is no mitral regurgitation noted. Aortic Valve The aortic valve is sclerotic, but shows no functional abnormality. No aortic regurgitation is present. Tricuspid Valve The tricuspid is normal in structure and function. There is a trace amount of tricuspid regurgitation. Pulmonic Valve The pulmonic valve is not well visualized. Effusions Small, hemodynamically insignificant pericardial effusion. : TRAY MERRILL, Josh
--- NOTE | 2020-03-07 17:06 | PDOC CONSULTATION ---
Consultation Consult Date: 03/07/20 Attending physician:: TRAY MERRILL Provider Consulted: KASSIE DRUMMOND Consult reason:: Acute pulmonary edema History of Present Illness Admission Date/PCP: VALENTIN LUTHER Patient complains of: Acute onset shortness of breath postoperatively History of Present Illness: MADY YBARRA is a 60 year old female who underwent laparoscopic hysterectomy and salpingectomy. Postoperatively she began coughing up white frothy sputum and was hypoxic with pulse ox in the 70s. She was placed on oxyge n and did not respond to nonrebreather and was placed on BiPAP. She began to respond to BiPAP. She was also given furosemide and has subsequently diuresed 1.5 L. She is currently less short of breath. She is still on BiPAP but we are attempting to wean off BiPAP to supplemental oxygen. She did report some chest pressure postop. She reports a past medical history of only diabetes mellitus with mild diabetic neuropathy. She is currently resting comfortably. She no longer has any chest pain. She is admitted to [facility] room 316. I did have a chance to briefly review the echocardiogram and it appears that the left ventricle global motion is decreased. Past Medical History Cardiac Medical History: Reports: Hyperlipidema Denies: Coronary Artery Disease, Myocardial Infarction, Hypertension Pulmonary Medical History: Denies: Asthma, Bronchitis, Chronic Obstructive Pulmonary Disease (COPD), Pneumonia, Tuberculosis Neurological Medical History: Reports: Other - Diabetic neuropathy Denies: Seizures Endocrine Medical History: Reports: Diabetes Mellitus Type 2 - "diet controlled" Renal/ Medical History: Denies: Chronic Kidney Disease Musculoskeltal Medical History: Denies: Arthritis Psychiatric Medical History: Reports: Depression - anxiety, Tobacco Dependency Hematology: Denies: Anemia Past Surgical History Past Surgical History: Reports: Cholecystectomy, Tubal Ligation Denies: Pacemaker Social History Information Source: Patient Lives with: Spouse/Significant other Smoking Status: Current Every Day Smoker Cigarettes Packs Per Day: 0.5 Frequency of Alcohol Use: Rare Hx Recreational Drug Use: Yes Drugs: Cocaine Hx Prescription Drug Abuse: No - Advance Directive Resuscitation Status: Full Code Family History Family History: DM Parental Family History Reviewed: Yes Children Family History Reviewed: Yes Sibling(s) Family History Reviewed.: Yes Medication/Allergy Home Medications: Insulin Detemir [Levemir Flextouch] 30 unit SQ Q12H #20 ml 08/09/15 Insulin Lispro [Humalog Kwikpen] 15 unit SQ ASDIR #15 ml 08/09/15 Allergies/Adverse Reactions: peanuts Allergy (Uncoded 03/07/20 07:39) Review of Systems All systems: reviewed and no additional remarkable complaints except as stated Respiratory: PRESENT: dyspnea Gastrointestinal: PRESENT: abdominal pain Physical Exam Vital Signs: Temp Pulse Resp BP Pulse Ox 98.2 F 99 16 109/73 100 03/07/20 12:32 03/07/20 14:47 03/07/20 15:54 03/07/20 14:47 03/07/20 15:54 Intake & Output 03/06/20 03/07/20 03/08/20 06:59 06:59 06:59 Intake Total 2600 Output Total 1425 Balance 1175 Weight 79 kg General appearance: PRESENT: cooperative, mild distress, well-developed Head exam: PRESENT: atraumatic, normocephalic Eye exam: PRESENT: conjunctiva pink, EOMI. ABSENT: scleral icterus Ear exam: PRESENT: normal external ear exam. ABSENT: bleeding, drainage Mouth exam: PRESENT: dry mucosa, tongue midline Respiratory exam: PRESENT: rales - Faint at bases, symmetrical, unlabored. ABSENT: accessory muscle use, prolonged expiratory phas, rhonchi, tachypnea, wheezes Cardiovascular exam: PRESENT: RRR, +S1, +S2 GI/Abdominal exam: PRESENT: diminished bowel sounds, soft, tenderness - Lower abdomen surgical site. ABSENT: distended Rectal exam: PRESENT: deferred Extremities exam: ABSENT: pedal edema Musculoskeletal exam: PRESENT: normal inspection. ABSENT: deformity, dislocation Neurological exam: PRESENT: alert, awake, oriented to person, oriented to place, oriented to time, oriented to situation, CN II-XII grossly intact. ABSENT: altered Psychiatric exam: PRESENT: appropriate affect. ABSENT: agitated, anxious Focused psych exam: ABSENT: delusional, paranoid, restlessness Skin exam: PRESENT: dry, warm. ABSENT: rash Results Laboratory Results: 03/03/20 11:16 03/03/20 11:16 Impressions: Chest X-Ray 03/07/20 12:41 IMPRESSION: Diffuse patchy bilateral parenchymal opacities - correlate for pulmonary edema/volume overload. Assessment and Plan - Diagnosis (1) Acute respiratory failure with hypoxia Is this a current diagnosis for this admission?: Yes Plan: Postoperatively the patient required aggressive supplemental oxygen that culminated in BiPAP with an FiO2 of 100%. With several doses of furosemide her saturation improved and was consistently in the high 90s at the time of this encounter. She was mildly tachycardic with a pulse of 100-110. She reports that her breathing is much more comfortable. She is no longer coughing up frothy sputum. Will work to wean from BiPAP and eventually from oxygen as tolerated. (2) Pulmonary edema Qualifiers: Chronicity: acute Qualified Code(s): J81.0 - Acute pulmonary edema Is this a current diagnosis for this admission?: Yes Plan: Stat echo has been ordered. Because the patient had some chest discomfort I will obtain EKG and cardiac enzymes. I have placed consult for cardiology, Dr. Shepard. (3) Chest pain Qualifiers: Chest pain type: precordial pain Qualified Code(s): R07.2 - Precordial pain Is this a current diagnosis for this admission?: Yes Plan: Precordial chest discomfort. Resolved spontaneously. Cardiac enzymes and EKG ordered. Echocardiogram being performed. Cardiology will be seeing the patient. Sublingual nitro will also be made available. (4) Hyperglycemia due to type 2 diabetes mellitus Qualifiers: Diabetes mellitus equipment operator intermodal yard insulin use: with equipment operator intermodal yard use Qualified Code(s): E11.65 - Type 2 diabetes mellitus with hyperglycemia; Z79.4 - alf (current) use of insulin Is this a current diagnosis for this admission?: Yes Plan: The patient has not had anything to eat since last night. At home she uses Tresiba and a sliding scale. We will start with Accu-Cheks at meals and bedtime with sliding scale coverage. Once her diet advances we will add back some long- acting insulin. I have ordered a hemoglobin A1c as well as a lipid panel for tomorrow. - Time Time Spent with patient: 35 or more minutes Medications reviewed and adjusted accordingly: Yes - Inpatient Certification Based on my medical assessment, after consideration of the patient's comorbidities, presenting symptoms, or acuity I expect that the services needed warrant INPATIENT care.: Yes I certify that my determination is in accordance with my understanding of Medicare's requirements for reasonable and necessary INPATIENT services [42 CFR 412.3e].: Yes Medical Necessity: Need Close Monitoring Due to Risk of Patient Decompensation, Need For Continuous Telemetry Monitoring, Need for Pain Control, Other - Cardiac work-up Post Hospital Care: D/C Optometry Assistant Documentation
[2020-03-07 17:41] LABS: CREATINE KINASE MB 2.22 ng/mL (<4.55)
[2020-03-07 17:47] LABS: TROPONIN I 0.096 ng/mL
--- NOTE | 2020-03-07 18:27 | EKG REPORT ---
SEVERITY:- ABNORMAL ECG - SINUS RHYTHM PROBABLE LEFT ATRIAL ABNORMALITY NONSPECIFIC T ABNORMALITIES, LATERAL LEADS : Confirmed by: Rey Porras MD 07-Mar-2020 18:26:10
[2020-03-07] MEDS: NITROGLYCERIN 2% OINTMENT 1 GM PACKET TP SCH ×2 (19:00→23:32)
[2020-03-07] MEDS: INSULIN REG, HUMAN 100 UNIT/ML 3 ML VIAL (PYX) SUBCUT SCH ×2 (19:10→21:00)
[2020-03-07] MEDS: ASPIRIN 81 MG TABLET, ENT COATED PO SCH (21:18)
[2020-03-07] MEDS: ATORVASTATIN CALCIUM 40 MG TABLET PO SCH (21:18)
[2020-03-07] MEDS: OXYCODONE-ACETAMINOPHEN 5-325 MG TABLET PO PRN (21:18)
[2020-03-07] MEDS: SACUBITRIL/VALSARTAN 24 MG/26 MG TABLET PO SCH (21:18)
[2020-03-07] MEDS ORDERED: FUROSEMIDE INJ/PF 20 MG/2 ML SDV IV SCH ×2 (22:00)
[2020-03-07 23:04] LABS: CREATINE KINASE MB 2.76 ng/mL (<4.55)
[2020-03-07 23:05] LABS: TROPONIN I 0.198 ng/mL
[2020-03-08] MEDS: OXYCODONE-ACETAMINOPHEN 5-325 MG TABLET PO PRN ×3 (02:45→18:16)
[2020-03-08 05:14] LABS: HEMOGLOBIN 12.5 g/dL (12.0-15.5); MEAN CORPUSCULAR HEMOGLOBIN 27.2 pg (27.0-33.4); MEAN CORPUSCULAR VOLUME 82 fl (80-97); PLATELET COUNT 252 10^3/uL (150-450); RED BLOOD COUNT 4.62 10^6/uL (3.72-5.28); RED CELL DISTRIBUTION WIDTH 16.9 % (11.5-14.0); WHITE BLOOD COUNT 21.4 10^3/uL (4.0-10.5)
[2020-03-08 05:33] LABS: ANION GAP 8 (5-19); BLOOD UREA NITROGEN 18 mg/dL (7-20); CALCIUM 9.1 mg/dL (8.4-10.2); CARBON DIOXIDE 25 mmol/L (22-30); CHLORIDE 103 mmol/L (98-107); CREATINE KINASE 268 U/L (30-135); GLUCOSE 160 mg/dL (75-110); TRIGLYCERIDES 183 mg/dL (<150)
[2020-03-08] MEDS: NITROGLYCERIN 2% OINTMENT 1 GM PACKET TP SCH (05:38)
[2020-03-08 05:43] LABS: ABSOLUTE LYMPHOCYTES# (MANUAL) 2.6 10^3/uL (0.5-4.7); ABSOLUTE MONOCYTES # (MANUAL) 0.9 10^3/uL (0.1-1.4); ANISOCYTOSIS 1+; BASOPHILS % (MANUAL) 1 % (0-2); EOSINOPHILS % (MANUAL) 0 % (0-6); HYPOCHROMASIA SLIGHT; LYMPHOCYTES % (MANUAL) 12 % (13-45); MONOCYTES % (MANUAL) 4 % (3-13); OVALOCYTES SLIGHT; POIKILOCYTOSIS SLIGHT; SEGMENTED NEUTROPHILS % (MAN) 83 % (42-78); TEAR DROP CELLS 1+; TOTAL CELLS COUNTED 100; TOXIC VACUOLATION PRESENT
[2020-03-08 05:44] LABS: DIRECT LDL 108 mg/dL (<100); PLATELET COMMENT ADEQUATE; PLATELET GIANT PRESENT; PLATELET LARGE PRESENT
[2020-03-08 05:45] LABS: CREATINE KINASE MB 2.63 ng/mL (<4.55); TROPONIN I 0.187 ng/mL
[2020-03-08 05:46] LABS: VLDL CHOLESTEROL 36.6 mg/dL (10-31)
--- NOTE | 2020-03-08 08:06 | PDOC CONSULTATION ---
Consultation Consult Date: 03/08/20 Attending physician:: KASSIE DRUMMOND Provider Consulted: SHARDA BO Consult reason:: HF History of Present Illness Admission Date/PCP: VALENTIN LUTHER History of Present Illness: MADY YBARRA is a 60 year old female with history of hyperlipidemia, diabetes, tobacco use of 1 pack every 2 days for more than 20 years, no family history of premature coronary artery disease was consulted to our service for evaluation of new onset heart failure. The patient underwent laparoscopic assisted vaginal hysterectomy with bilateral salpingo-oophorectomy on 03/07/2020. In the OR she was given approximately 2.5 L of fluid and developed significant shortness of breath, hypoxemia and pulmonary edema. She was treated with BiPAP in the intensive care unit and was treated with Lasix. An echocardiogram demonstrated an ejection fraction less than 25% among other findings. This morning she is found laying in bed, resting comfortably and without shortness of breath, palpitations, syncope or presyncope. She is now o ff of BiPAP. Her telemetry demonstrates normal sinus rhythm without any sustained ventricular dysrhythmias. Her troponin is trending down 0.198 followed by 0.187. Physical exam on 03/08/2020: GENERAL: Pleasant and conversational. Oriented x3 with normal mood. Not in acute distress. Well groomed and well developed. HEENT: Normocephalic, atraumatic. Pupils equal. Sclerae anicteric. Oroph arynx moist. NECK: No JVD. No carotid bruits. LUNGS: Clear to auscultation bilaterally. Normal respiratory effort without the use of accessory muscles or intercostal retractions. CARDIOVASCULAR: Regular rate and rhythm, normal S1 and S2 without murmurs, rubs, or gallops. PMI not displaced. ABDOMEN: No masses or tenderness to palpation. No bruit. No splenomegaly or hepatomegaly. No abdominal aorta bruit noted. EXTREMITIES: No edema, no cyanosis, no clubbing. +2 pulses femoral and pedal pulses bilaterally. SKIN: No lesions or rashes. MUSCULOSKELETAL: No chest tenderness to palpation. NEUROLOGIC: Nonfocal. No gross sensory or motor deficits bilateral upper or lower extremities. Cardiac studies: [facility]: -LV is normal in size. -EF between 20 and 25%. -Diastolic function was not adequately assessed. -Severe global hypokinesis with anterior wall dyskinesis noted on the short axis views. -Small, hemodynamically insignificant pericardial effusion. -Trace TR. Past Medical History Cardiac Medical History: Reports: Hyperlipidema Denies: Coronary Artery Disease, Myocardial Infarction, Hypertension Pulmonary Medical History: Denies: Asthma, Bronchitis, Chronic Obstructive Pulmonary Disease (COPD), Pneumonia, Tuberculosis Neurological Medical History: Reports: Other - Diabetic neuropathy Denies: Seizures Endocrine Medical History: Reports: Diabetes Mellitus Type 2 - "diet controlled" Renal/ Medical History: Denies: Chronic Kidney Disease Musculoskeltal Medical History: Denies: Arthritis Psychiatric Medical History: Reports: Depression - anxiety, Tobacco Dependency Hematology: Denies: Anemia Past Surgical History Past Surgical History: Reports: Cholecystectomy, Tubal Ligation Denies: Pacemaker Social History Lives with: Spouse/Significant other Smoking Status: Current Every Day Smoker Cigarettes Packs Per Day: 0.5 Frequency of Alcohol Use: Rare Hx Recreational Drug Use: Yes Drugs: Cocaine Hx Prescription Drug Abuse: No - Advance Directive Resuscitation Status: Full Code Family History Family History: DM Parental Family History Reviewed: Yes Children Family History Reviewed: Yes Sibling(s) Family History Reviewed.: Yes Medication/Allergy Home Medications: Insulin Detemir [Levemir Flextouch] 30 unit SQ Q12H #20 ml 08/09/15 Insulin Lispro [Humalog Kwikpen] 15 unit SQ ASDIR #15 ml 08/09/15 Allergies/Adverse Reactions: peanuts Allergy (Uncoded 03/07/20 07:39) Physical Exam Vital Signs: Temp Pulse Resp BP Pulse Ox 97.8 F 96 16 90/42 L 97 03/08/20 04:22 03/08/20 04:22 03/08/20 04:22 03/08/20 04:22 03/08/20 04:22 Intake & Output 03/07/20 03/08/20 03/09/20 06:59 06:59 06:59 Intake Total 4004 Output Total 3425 Balance 579 Weight 80.7 kg Results Laboratory Results: 03/08/20 04:50 03/08/20 04:50 03/08/20 03/08/20 04:50 04:50 WBC 21.4 H RBC 4.62 Hgb 12.5 Hct 38.0 MCV 82 MCH 27.2 MCHC 33.0 RDW 16.9 H Plt Count 252 Seg Neutrophils % Not Reportable Sodium 136.3 L Potassium 4.0 Chloride 103 Carbon Dioxide 25 Anion Gap 8 BUN 18 Creatinine 0.69 Est GFR ( Amer) > 60 Glucose 160 H Calcium 9.1 Magnesium 2.0 Triglycerides 183 H Cholesterol 179.90 LDL Cholesterol Direct 108 H VLDL Cholesterol 36.6 H HDL Cholesterol 39 L 03/07/20 03/07/20 03/07/20 17:03 17:03 22:28 Creatine Kinase 184 H 230 H CK-MB (CK-2) 2.22 Troponin I 0.096 03/07/20 03/08/20 03/08/20 22:28 04:50 04:50 Creatine Kinase 268 H CK-MB (CK-2) 2.76 2.63 Troponin I 0.198 0.187 Impressions: Chest X-Ray 03/07/20 12:41 IMPRESSION: Diffuse patchy bilateral parenchymal opacities - correlate for pulm onary edema/volume overload. 03/08/20 04:50 03/08/20 04:50 MCV 82 fl (80-97) 03/08/20 04:50 MCH 27.2 pg (27.0-33.4) 03/08/20 04:50 MCHC 33.0 g/dL (32.0-36.0) 03/08/20 04:50 RDW 16.9 % (11.5-14.0) H 03/08/20 04:50 Seg Neutrophils % Not Reportable 03/08/20 04:50 Chloride 103 mmol/L (98-107) 03/08/20 04:50 Carbon Dioxide 25 mmol/L (22-30) 03/08/20 04:50 Anion Gap 8 (5-19) 03/08/20 04:50 Est GFR ( Amer) > 60 (>60) 03/08/20 04:50 Glucose 160 mg/dL (75-110) H 03/08/20 04:50 Calcium 9.1 mg/dL (8.4-10.2) 03/08/20 04:50 Magnesium 2.0 mg/dL (1.6-2.3) 03/08/20 04:50 Total Bilirubin 1.0 mg/dL (0.2-1.3) 03/03/20 11:16 AST 20 U/L (14-36) 03/03/20 11:16 Alkaline Phosphatase 80 U/L (38-126) 03/03/20 11:16 Total Protein 7.9 g/dL (6.3-8.2) 03/03/20 11:16 Albumin 4.8 g/dL (3.5-5.0) 03/03/20 11:16 Triglycerides 183 mg/dL (<150) H 03/08/20 04:50 Cholesterol 179.90 mg/dL (0-200) 03/08/20 04:50 LDL Cholesterol Direct 108 mg/dL (<100) H 03/08/20 04:50 VLDL Cholesterol 36.6 mg/dL (10-31) H 03/08/20 04:50 HDL Cholesterol 39 mg/dL (>40) L 03/08/20 04:50 Urine Color YELLOW 03/03/20 10:47 Urine Appearance SLIGHTLY-CLOUDY 03/03/20 10:47 Urine pH 5.0 (5.0-9.0) 03/03/20 10:47 Ur Specific Dale 1.021 03/03/20 10:47 Urine Protein NEGATIVE mg/dL (NEGATIVE) 03/03/20 10:47 Urine Glucose (UA) NEGATIVE mg/dL (NEGATIVE) 03/03/20 10:47 Urine Ketones NEGATIVE mg/dL (NEGATIVE) 03/03/20 10:47 Urine Blood NEGATIVE (NEGATIVE) 03/03/20 10:47 Urine Nitrite NEGATIVE (NEGATIVE) 03/03/20 10:47 Ur Leukocyte Esterase SMALL (NEGATIVE) H 03/03/20 10:47 Urine WBC (Auto) 11 /HPF 03/03/20 10:47 Urine RBC (Auto) 1 /HPF 03/03/20 10:47 Blood Type B POSITIVE 03/03/20 11:16 Antibody Screen NEGATIVE 03/03/20 11:16 03/07/20 03/07/20 03/07/20 17:03 17:03 22:28 Creatine Kinase 184 H 230 H CK-MB (CK-2) 2.22 Troponin I 0.096 03/07/20 03/08/20 03/08/20 22:28 04:50 04:50 Creatine Kinase 268 H CK-MB (CK-2) 2.76 2.63 Troponin I 0.198 0.187 Current Medication List Generic Name Dose Route Start Last Admin Trade Name Freq PRN Reason Stop Dose Admin Aspirin 81 mg 03/07/20 22:00 03/07/20 21:18 Ecotrin 81 Mg Ec Tablet PO 04/06/20 21:59 81 mg QHS NEHA Administration Atorvastatin Calcium 40 mg 03/07/20 22:00 03/07/20 21:18 Lipitor 40 Mg Tablet PO 04/06/20 21:59 40 mg QHS NEHA Administration Dextrose 12.5 gm 03/07/20 12:22 Dextrose Inj 50% Syringe (25 Gm/50 Ml) IV 04/06/20 12:21 PRN PRN FOR BG 50-69 IN ALERT PATIENT Protocol Dextrose 25 gm 03/07/20 12:22 Dextrose Inj 50% Syringe (25 Gm/50 Ml) IV 04/06/20 12:21 PRN PRN PER PROTOCOL Protocol Famotidine 20 mg 03/08/20 10:00 Pepcid Inj/Pf 20 Mg/2 Ml Sdv IV 04/07/20 09:59 DAILY NEHA Furosemide 20 mg 03/07/20 22:00 03/07/20 21:19 Lasix Inj/Pf 20 Mg/2 Ml Sdv IV 04/06/20 21:59 20 mg Q12 NEHA Administration Glucagon 1 mg 03/07/20 12:22 Glucagen Inj 1 Mg Vial IM 04/06/20 12:21 PRN PRN Evaluate for BG < 70 Protocol Glucose 15 gm 03/07/20 12:22 Glutose 40% Gel 15 Gm Tube PO 04/06/20 12:21 PRN PRN FOR BG 50-69 IN ALERT PATIENT Protocol Glucose 30 gm 03/07/20 12:22 Glutose 40% Gel 15 Gm Tube PO 04/06/20 12:21 PRN PRN FOR BG < 50 IN ALERT PATIENT Protocol Hydromorphone HCl 2 mg 03/07/20 12:14 Dilaudid Inj/Pf 2 Mg/Ml Ampule IV 03/14/20 12:13 Q3HP PRN PAIN SCALE OF 5 Ibuprofen 800 mg 03/07/20 12:14 Motrin 800 Mg Tablet PO NOW PRN pain/cramps Insulin Human Regular 0 - 12 unit 03/07/20 16:00 03/07/20 21:00 Humulin R (Pyxis) Insulin 100 Unit/Ml 3ml SUBCUT 04/06/20 15:59 Not Given ACHS NEHA Protocol Morphine Sulfate 2 mg 03/07/20 16:51 Morphine 10 Mg/Ml Inj IV 03/14/20 16:50 Q4HP PRN FOR PAIN SCALE 3-5 Nicotine 1 each 03/07/20 16:45 Nicoderm 14 Mg/24 Hr Transdermal Patch TD 04/06/20 16:44 DAILYP PRN WITHDRAWAL SYMPTOMS Nitroglycerin 1 tab 03/07/20 16:52 Nitrostat 0.4 Mg (1/150 Gr) Tabs 25/Bottle SL 04/06/20 16:51 Q5MP PRN FOR CHEST PAIN Nitroglycerin 0.5 gm 03/07/20 18:00 03/08/20 05:38 Nitrol 2% Ointment 1gm Packet TP 04/06/20 17:59 0.5 gm Q6 NEHA Administration Ondansetron HCl 4 mg 03/07/20 12:24 Zofran Inj/Pf 4 Mg/2 Ml Sdv IV 04/06/20 12:23 Q6HP PRN FOR NAUSEA/VOMITING Oxycodone/Acetaminophen 1 tab 03/07/20 12:14 03/08/20 02:45 Percocet 5-325 Mg Tablet PO 03/14/20 12:13 1 tab Q4HP PRN Administration pain 1-2 Oxycodone/Acetaminophen 2 tab 03/07/20 12:14 Percocet 5-325 Mg Tablet PO 03/14/20 12:13 Q4HP PRN pain 3-5 Promethazine HCl 25 mg 03/07/20 12:24 Phenergan Inj 50 Mg/1 Ml Vial IM 04/06/20 12:23 Q4HP PRN UNRESOLVED NAUSEA/VOMITING Sacubitril/Valsartan 1 tab 03/07/20 22:00 03/07/20 21:18 Entresto 24 Mg/26 Mg Tablet PO 04/06/20 21:59 1 tab Q12 NEHA Administration Discontinued Medications Generic Name Dose Route Start Last Admin Trade Name Freq PRN Reason Stop Dose Admin Albuterol Confirm 03/07/20 12:59 03/07/20 13:02 Ventolin 0.083% Neb 2.5 Mg/3 Ml Ampul Administered 03/07/20 13:00 2.5 mg Dose Administration 2.5 mg NEB .STK-MED ONE Albuterol 2.5 mg 03/07/20 12:50 03/07/20 17:10 Ventolin 0.083% Neb 2.5 Mg/3 Ml Ampul NEB 03/07/20 12:51 Not Given NOW ONE Bupivacaine HCl Confirm 03/07/20 08:19 03/07/20 08:53 Sensorcaine-Mpf 0.25% Inj 30 Ml Sdv Administered 03/07/20 08:20 6 ml Dose Administration 30 ml .ROUTE .STK-MED ONE Bupivacaine HCl/Epinephrine Bitart Confirm 03/07/20 08:20 Sensorcaine 0.25%/Epi Mpf 30 Ml Sdv Administered 03/07/20 08:21 Dose 30 ml .ROUTE .STK-MED ONE Dexamethasone Sodium Phosphate Confirm 03/07/20 06:23 Decadron Inj 4 Mg/Ml Vial Administered 03/07/20 06:24 Dose 4 mg .ROUTE .STK-MED ONE Dexamethasone Sodium Phosphate 8 mg 03/07/20 13:53 Decadron Inj 4 Mg/Ml Vial .ROUTE 03/07/20 13:54 .STK-MED ONE Diphenhydramine HCl 12.5 mg 03/07/20 09:48 Benadryl Inj 50 Mg/1 Ml Vial IV 03/07/20 12:48 .WHILE IN PACU PRN ITCHING Fentanyl Citrate Confirm 03/07/20 06:23 Sublimaze Inj/Pf 100 Mcg/2 Ml Ampule Administered 03/07/20 06:24 Dose 100 mcg .ROUTE .STK-MED ONE Fentanyl Citrate 25 mcg 03/07/20 09:48 Sublimaze Inj/Pf 100 Mcg/2 Ml Ampule IV 03/07/20 12:48 .WHILE IN PACU PRN PAIN SCALE 2-3 Fentanyl Citrate 12.5 mcg 03/07/20 09:48 Sublimaze Inj/Pf 100 Mcg/2 Ml Ampule IV 03/07/20 12:48 .WHILE IN PACU PRN PAIN SCALE OF 1 Fentanyl Citrate 50 mcg 03/07/20 09:48 Sublimaze Inj/Pf 100 Mcg/2 Ml Ampule IV 03/07/20 12:48 .WHILE IN PACU PRN PAIN SCALE 4-5 Furosemide Confirm 03/07/20 13:31 03/07/20 13:40 Lasix Inj/Pf 40 Mg/4 Ml Sdv Administered 03/07/20 13:32 20 mg Dose Administration 40 mg .ROUTE .STK-MED ONE Furosemide 20 mg 03/07/20 13:25 03/07/20 17:10 Lasix Inj/Pf 20 Mg/2 Ml Sdv IV 03/07/20 13:26 Not Given NOW ONE Furosemide 20 mg 03/07/20 22:00 Lasix Inj/Pf 20 Mg/2 Ml Sdv IV 04/06/20 21:59 Q12 NEHA Glycopyrrolate 1 mg 03/07/20 13:53 Robinul 1 Mg/5 Ml Vial .ROUTE 03/07/20 13:54 .STK-MED ONE Lactated Ringer's 1,000 mls @ 150 mls/hr 03/07/20 05:00 Lactated Ringers 1000 Ml Iv Soln IV 03/07/20 23:59 CONTINUOUS PRN THIS MED IS NOT "PRN" Cefazolin Sodium/Dextrose Confirm 03/07/20 05:14 03/07/20 17:10 Ancef Rtu 2 Gm/D5w 50 Ml Premix Bag Administered 03/07/20 05:15 Not Given Dose 2 gm in 50 mls @ ud IV .STK-MED ONE Lactated Ringer's 1,000 mls @ 125 mls/hr 03/07/20 12:14 Lactated Ringers 1000 Ml Iv Soln IV 04/06/20 12:13 CONTINUOUS PRN THIS MED IS NOT "PRN" Cefazolin Sodium/Dextrose 2 gm in 50 mls @ 100 mls/hr 03/07/20 14:00 03/07/20 17:11 Ancef Rtu 2 Gm/D5w 50 Ml Premix Bag IV 03/07/20 21:59 Not Given Q8 [facility] Ketorolac Tromethamine 30 mg 03/07/20 12:14 03/07/20 16:46 Toradol Inj/Pf 30 Mg/1 Ml Sdv IV 30 mg NOW PRN Administration PAIN SCALE OF 1 Lidocaine HCl 0.4 ml 03/07/20 05:00 Xylocaine 0.5% Inj-Pf (5 Mg/Ml) 50 Ml Sdv SUBCUT 03/07/20 23:59 PRN PRN PRIOR TO ESTABLISHING IV LINE Meperidine HCl 12.5 mg 03/07/20 09:48 Demerol Inj 25 Mg/1 Ml Syringe IV 03/07/20 12:48 .WHILE IN PACU PRN Shivering Midazolam HCl Confirm 03/07/20 06:23 Versed 2 Mg/2 Ml Inj Administered 03/07/20 06:24 Dose 2 mg .ROUTE .STK-MED ONE Morphine Sulfate 3 mg 03/07/20 09:48 Morphine 10 Mg/Ml Inj IV 03/07/20 12:48 .WHILE IN PACU PRN FOR PAIN Morphine Sulfate Confirm 03/07/20 13:10 03/07/20 13:25 Morphine 10 Mg/Ml Inj Administered 03/07/20 13:11 3 mg Dose Administration 10 mg .ROUTE .STK-MED ONE Neostigmine Methylsulfate 10 mg 03/07/20 13:53 Prostigmin Inj 10 Mg/10 Ml Vial .ROUTE 03/07/20 13:54 .STK-MED ONE Ondansetron HCl Confirm 03/07/20 06:23 Zofran Inj/Pf 4 Mg/2 Ml Sdv Administered 03/07/20 06:24 Dose 4 mg .ROUTE .STK-MED ONE Ondansetron HCl 4 mg 03/07/20 09:48 Zofran Inj/Pf 4 Mg/2 Ml Sdv IV 03/07/20 12:48 .WHILE IN PACU PRN NAUSEA AND VOMITING Promethazine HCl 12.5 mg 03/07/20 09:48 Phenergan Inj 25 Mg/1 Ml Vial IV 03/07/20 12:48 .WHILE IN PACU PRN NAUSEA AND VOMITING Promethazine HCl 25 mg 03/07/20 09:48 Phenergan Inj 25 Mg/1 Ml Vial IV 03/07/20 12:48 .WHILE IN PACU PRN NAUSEA AND VOMITING Propofol Confirm 03/07/20 06:24 Diprivan Inj 200 Mg/20 Ml Vial Administered 03/07/20 06:25 Dose 200 mg IV .STK-MED ONE Succinylcholine Chloride 200 mg 03/07/20 13:53 Anectine Inj 200 Mg/10 Ml Vial .ROUTE 03/07/20 13:54 .STK-MED ONE Sugammadex Sodium Confirm 03/07/20 12:22 Bridion 200 Mg/2 Ml Sdv Administered 03/07/20 12:23 Dose 200 mg IV .STK-MED ONE Vasopressin Confirm 03/07/20 08:20 Vasopressin Inj 20 Unit/1 Ml Vial Administered 03/07/20 08:21 Dose 20 unit .ROUTE .STK-MED ONE Vecuronium Pettibone 10 mg 03/07/20 13:53 Norcuron Inj 10 Mg Vial IV 03/07/20 13:54 .STK-MED ONE Assessment & Plan - Diagnosis (1) Heart failure with reduced ejection fraction Plan: 60-year-old female with cardiac risk factors of tobacco use, sedentary lifestyle, diabetes and hyperlipidemia who has developed acute onset of heart failure with reduced ejection fraction with an ejection fraction between 20 and 25% on echocardiogram as of yesterday. The patient is resting comfortably this morning and without ischemic or heart failure symptoms. Unfortunately I do not believe her intake and output is accurate. She is on GDMT except for beta- abena which will be added today at a low dose given her low blood pressure. She has no evidence of fluid overload on exam any longer. The etiology for heart failure is unknown at this time however she has significant cardiac risk factors that warrants further ischemic assessment that could be done with nuclear stress testing versus invasively with left heart catheterization. Given her risk factors and her dyskinesis of the anterior wall on echocardiography I favor the latter once she is transitioned to p.o. Lasix. Recommendations: -Transition IV Lasix to Lasix 40 mg p.o. daily. -Restrict fluid intake to 1500 cc daily. -Low sodium diet, less than 1500 mg daily. -Strict intake and output. -Daily weights. -Ischemic assessment with [facility]. We will likely transfer her on Tuesday. -Discontinue nitroglycerin patch. -Start metoprolol succinate 12.5 mg p.o. daily as tolerated by her blood pressure. -Quit tobacco.
--- NOTE | 2020-03-08 09:14 | PDOC PROGRESS REPORT ---
Subjective Progress Note for:: 03/08/20 Subjective:: Doing better today. Breathing easily. No coughing today. States she does have some cramping in her belly that feels like gas. No nausea or vomiting. She is eating without incidence. Reports not passed gas yet. Voiding via ortiz-very good output after lasix post--op No vaginal bleeding Reason For Visit: N83.209 UNSPECIFIED OVARIAN CYST, UNSPECIFIED SIDE Physical Exam - Physical Exam Vital Signs: Temp Pulse Resp BP Pulse Ox 97.9 F 93 16 82/48 L 94 03/08/20 07:49 03/08/20 07:49 03/08/20 07:49 03/08/20 08:09 03/08/20 07:49 Intake & Output 03/07/20 03/08/20 03/09/20 06:59 06:59 06:59 Intake Total 4004 Output Total 3425 Balance 579 Weight 80.7 kg General appearance: PRESENT: no acute distress, cooperative Respiratory exam: PRESENT: clear to auscultation colette Cardiovascular exam: PRESENT: RRR, +S1, +S2 GI/Abdominal exam: PRESENT: normal bowel sounds, soft, other - Incisions dry and intact Neurological exam: PRESENT: alert, awake, oriented to person, oriented to place, oriented to time Psychiatric exam: PRESENT: appropriate affect, normal mood Skin exam: PRESENT: dry, intact, warm. ABSENT: cyanosis, rash Result Laboratory Results: 03/08/20 04:50 03/08/20 04:50 03/08/20 03/08/20 04:50 04:50 WBC 21.4 H RBC 4.62 Hgb 12.5 Hct 38.0 MCV 82 MCH 27.2 MCHC 33.0 RDW 16.9 H Plt Count 252 Seg Neutrophils % Not Reportable Sodium 136.3 L Potassium 4.0 Chloride 103 Carbon Dioxide 25 Anion Gap 8 BUN 18 Creatinine 0.69 Est GFR ( Amer) > 60 Glucose 160 H Calcium 9.1 Magnesium 2.0 Triglycerides 183 H Cholesterol 179.90 LDL Cholesterol Direct 108 H VLDL Cholesterol 36.6 H HDL Cholesterol 39 L 03/07/20 03/07/20 03/07/20 17:03 17:03 22:28 Creatine Kinase 184 H 230 H CK-MB (CK-2) 2.22 Troponin I 0.096 03/07/20 03/08/2003/08/20 22:28 04:50 04:50 Creatine Kinase 268 H CK-MB (CK-2) 2.76 2.63 Troponin I 0.198 0.187 Impressions: Chest X-Ray 03/07/20 12:41 IMPRESSION: Diffuse patchy bilateral parenchymal opacities - correlate for pulmonary edema/volume overload. Assessment & Plan - Diagnosis (1) Status post complete hysterectomy Is this a current diagnosis for this admission?: Yes Plan: Incisions dry and intact Bowel sounds audible Tolerating diabetic diet No vaginal bleeding. Will order abdominal binder May have ortiz removed if Dr. Castillo agrees Out of bed as tolerating-With help first few time up May shower over incisions and pat dry when she feels able (2) Diabetes type 2, controlled Is this a current diagnosis for this admission?: Yes Plan: Diabetic diet Hgb A1C 6.7 Contine current care per Dr. Castillo care (3) Heart failure with reduced ejection fraction Is this a current diagnosis for this admission?: Yes Plan: Care per Dr. Castillo and Cardiology recommendations (4) Pulmonary edema Qualifiers: Chronicity: acute Qualified Code(s): J81.0 - Acute pulmonary edema Is this a current diagnosis for this admission?: Yes Plan: Respiratory status is greatly improved today Continue current care per Dr. Castilol and Cardiology recommendations - Time Time Spent with patient: 15-24 minutes
[2020-03-08] MEDS ORDERED: METOPROLOL SUCCINATE 25 MG TAB.SR.24H PO SCH (10:00)
[2020-03-08] MEDS ORDERED: FUROSEMIDE 20 MG TABLET PO SCH (10:00)
[2020-03-08] MEDS: METOPROLOL SUCCINATE 25 MG TAB.SR.24H PO SCH (10:53)
[2020-03-08] MEDS: FUROSEMIDE 20 MG TABLET PO SCH ×2 (10:53→17:20)
[2020-03-08] MEDS: DOCUSATE SODIUM 100 MG CAPSULE PO SCH ×2 (10:57→17:20)
[2020-03-08] MEDS: INSULIN REG, HUMAN 100 UNIT/ML 3 ML VIAL (PYX) SUBCUT SCH ×5 (10:58→21:42)
[2020-03-08] MEDS: SACUBITRIL/VALSARTAN 24 MG/26 MG TABLET PO SCH ×2 (10:59→21:50)
[2020-03-08] MEDS: FAMOTIDINE INJ/PF 20 MG/2 ML SDV IV SCH (10:59)
--- NOTE | 2020-03-08 12:46 | PDOC PROGRESS REPORT ---
Subjective Progress Note for:: 03/08/20 Subjective:: Relaxing comfortably in the chair. Nasal cannula in place however the patient is not dyspneic. She has been having sporadic low blood pressures. Reason For Visit: N83.209 UNSPECIFIED OVARIAN CYST, UNSPECIFIED SIDE Physical Exam Vital Signs: Temp Pulse Resp BP Pulse Ox 97.3 F 97 16 109/57 L 99 03/08/20 11:16 03/08/20 11:16 03/08/20 11:16 03/08/20 11:16 03/08/20 11:16 Intake & Output 03/07/20 03/08/20 03/09/20 06:59 06:59 06:59 Intake Total 4004 Output Total 3425 Balance 579 Weight 80.7 kg General appearance: PRESENT: no acute distress, cooperative, well-developed Head exam: PRESENT: atraumatic, normocephalic Eye exam: PRESENT: conjunctiva pink. ABSENT: scleral icterus Ear exam: PRESENT: normal external ear exam. ABSENT: bleeding, drainage Mouth exam: PRESENT: moist, tongue midline Respiratory exam: PRESENT: rales, symmetrical, unlabored. ABSENT: rhonchi, ta chypnea, wheezes Cardiovascular exam: PRESENT: RRR, +S1, +S2 GI/Abdominal exam: PRESENT: normal bowel sounds, soft, tenderness - Lower abdomen surgical site. ABSENT: distended, guarding Rectal exam: PRESENT: deferred Gentrourinary exam: ABSENT: indwelling catheter Extremities exam: ABSENT: pedal edema Musculoskeletal exam: PRESENT: ambulatory, normal inspection. ABSENT: deformity, dislocation Neurological exam: PRESENT: alert, awake, oriented to person, oriented to place, oriented to time, oriented to situation, CN II-XII grossly intact. ABSENT: altered Psychiatric exam: PRESENT: appropriate affect. ABSENT: agitated, anxious Focused psych exam: ABSENT: delusional, paranoid, restlessness Skin exam: PRESENT: dry, warm. ABSENT: rash Results Laboratory Results: 03/08/20 04:50 03/08/20 04:50 03/08/20 03/08/20 04:50 04:50 WBC 21.4 H RBC 4.62 Hgb 12.5 Hct 38.0 MCV 82 MCH 27.2 MCHC 33.0 RDW 16.9 H Plt Count 252 Seg Neutrophils % Not Reportable Sodium 136.3 L Potassium 4.0 Chloride 103 Carbon Dioxide 25 Anion Gap 8 BUN 18 Creatinine 0.69 Est GFR ( Amer) > 60 Glucose 160 H Calcium 9.1 Magnesium 2.0 Triglycerides 183 H Cholesterol 179.90 LDL Cholesterol Direct 108 H VLDL Cholesterol 36.6 H HDL Cholesterol 39 L 03/07/20 03/07/20 03/07/20 17:03 17:03 22:28 Creatine Kinase 184 H 230 H CK-MB (CK-2) 2.22 Troponin I 0.096 03/07/20 03/08/20 03/08/20 22:28 04:50 04:50 Creatine Kinase 268 H CK-MB (CK-2) 2.76 2.63 Troponin I 0.198 0.187 Impressions: Chest X-Ray 03/07/20 12:41 IMPRESSION: Diffuse patchy bilateral parenchymal opacities - correlate for pulmonary edema/volume overload. Assessment and Plan - Diagnosis (1) Acute systolic heart failure Is this a current diagnosis for this admission?: Yes Plan: Echocardiogram revealed an ejection fraction of 20 to 25%. This was quite a shock for the patient. She had questions about what would be next. We discussed cardiac catheterization, angioplasty and stent placement as well as bypass surgery. We discussed implantable defibrillator as well as the LifeVest. Dr. Shepard will be orchestrating her ongoing work-up. Please see the cardiology consult. For now she is on aspirin, Entresto, atorvastatin and m etoprolol. There are parameters to hold medications based on her blood pressure and pulse rate. She will be on furosemide at 20 mg twice a day. As her pressure improves this can likely be consolidated to 40 mg once daily. We will also need to monitor her renal function and potassium. (2) Acute respiratory failure with hypoxia Is this a current diagnosis for this admission?: Yes Plan: Patient is down to 2 L nasal cannula. She is resting comfortably. We may be able to taper to room air before she discharges. (3) Pulmonary edema Qualifiers: Chronicity: acute Qualified Code(s): J81.0 - Acute pulmonary edema Is this a current diagnosis for this admission?: Yes Plan: We now know that this was a result of her underlying low ejection fraction. (4) Chest pain Qualifiers: Chest pain type: precordial pain Qualified Code(s): R07.2 - Precordial pain Is this a current diagnosis for this admission?: Yes Plan: No further episodes of chest discomfort. Sublingual nitroglycerin is available and nitro paste has been discontinued. (5) Hyperglycemia due to type 2 diabetes mellitus Qualifiers: Diabetes mellitus snf insulin use: with snf use Qualified Code(s): E11.65 - Type 2 diabetes mellitus with hyperglycemia; Z79.4 - penitentiary (current) use of insulin Is this a current diagnosis for this admission?: Yes Plan: The patient's hemoglobin A1c is 6.7. She exhibits excellent control. I anticipate very good compliance with her cardiac regimen. (6) Cigarette nicotine dependence Qualifiers: Substance use status: uncomplicated Qualified Code(s): F17.210 - Nicotine dependence, cigarettes, uncomplicated Is this a current diagnosis for this admission?: Yes Plan: I emphasized the absolute need to stop smoking. She appreciates this. She is 1 person who I believe can do this successfully. (7) Status post complete hysterectomy Is this a current diagnosis for this admission?: Yes Plan: Dr. Herring is following. The patient had some discomfort today but is well controlled with her current medication regimen. - Time Time Spent with patient: 25-34 minutes Medications reviewed and adjusted accordingly: Yes
[2020-03-08] MEDS: ATORVASTATIN CALCIUM 40 MG TABLET PO SCH (21:50)
[2020-03-08] MEDS: ASPIRIN 81 MG TABLET, ENT COATED PO SCH (21:50)
[2020-03-09 07:12] LABS: ABSOLUTE BASOPHILS # (AUTO) 0.1 10^3/uL (0.0-0.2); ABSOLUTE EOSINOPHILS # (AUTO) 0.2 10^3/uL (0.0-0.6); ABSOLUTE LYMPHOCYTES (AUTO) 3.8 10^3/uL (0.5-4.7); ABSOLUTE MONOCYTES (AUTO) 0.8 10^3/uL (0.1-1.4); ABSOLUTE NEUT (AUTO) 5.1 10^3/uL (1.7-8.2); EOSINOPHILS % (AUTO) 1.8 % (0-6); HEMATOCRIT 39.3 % (36.0-47.0); HEMOGLOBIN 12.9 g/dL (12.0-15.5); LYMPHOCYTES % (AUTO) 38.3 % (13-45); MEAN CORPUSCULAR HEMOGLOBIN 27.1 pg (27.0-33.4); MEAN CORPUSCULAR HGB CONC 32.8 g/dL (32.0-36.0); MEAN CORPUSCULAR VOLUME 83 fl (80-97); MONOCYTES % (AUTO) 8.1 % (3-13); PLATELET COUNT 247 10^3/uL (150-450); RED BLOOD COUNT 4.76 10^6/uL (3.72-5.28); RED CELL DISTRIBUTION WIDTH 17.3 % (11.5-14.0); SEGMENTED NEUTROPHILS % (AUTO) 50.8 % (42-78); TOTAL CELLS COUNTED % (AUTO) 100 %
[2020-03-09 07:33] LABS: ANION GAP 7 (5-19); BLOOD UREA NITROGEN 17 mg/dL (7-20); CALCIUM 9.2 mg/dL (8.4-10.2); CARBON DIOXIDE 27 mmol/L (22-30); CHLORIDE 104 mmol/L (98-107); GLUCOSE 123 mg/dL (75-110); POTASSIUM 4.2 mmol/L (3.6-5.0)
--- NOTE | 2020-03-09 07:49 | PDOC PROGRESS REPORT ---
Subjective Progress Note for:: 03/09/20 Subjective:: MADY YBARRA is a 60 year old female with history of hyperlipidemia, diabetes, tobacco use of 1 pack every 2 days for more than 20 years, no family history of premature coronary artery disease was consulted to our service for evaluation of new onset heart failure. The patient underwent laparoscopic assisted vaginal hysterectomy with bilateral salpingo-oophorectomy on 03/07/2020. In the OR she was given approximately 2.5 L of fluid and developed significant shortness of breath, hypoxemia and pulmonary edema. She was treated with BiPAP in the intensive care unit and was treated with Lasix. An echocardiogram demonstrated an ejection fraction less than 25% among other findings. This morning she is found laying in bed, resting comfortably and without shortness of breath, palpitations, syncope or presyncope. She is now off of BiPAP. Her telemetry demonstrates normal sinus rhythm without any sustained ventricular dysrhythmias. Her troponin is trending down 0.198 followed by 0.187. 03/09/2020: The patient really does not have any significant cardiovascular complaints today. Her blood pressure is on the low side and, on a few occasions, appears to correlate with the administration of morphine. She did have an episode of dizziness and lightheadedness after morphine was given earlier today. She denies ischemic chest pain as well as shortness of breath and palpitations. Her telemetry did demonstrate a short episode of SVT with spontaneous resolution. She continues to have surgical pain. Physical exam on 03/09/2020: GENERAL: Pleasant and conversational. Oriented x3 with normal mood. Not in acute distress. Well groomed and well developed. HEENT: Normocephalic, atraumatic. Pupils equal. Sclerae anicteric. Oropharynx moist. NECK: No JVD. No carotid bruits. LUNGS: Clear to auscultation bilaterally. Normal respiratory effort without the use of accessory muscles or intercostal retractions. CARDIOVASCULAR: Regular rate and rhythm, normal S1 and S2 without murmurs, rubs, or gallops. PMI not displaced. ABDOMEN: No masses or tenderness to palpation. No bruit. No splenomegaly or hepatomegaly. No abdominal aorta bruit noted. EXTREMITIES: No edema, no cyanosis, no clubbing. +2 pulses femoral and pedal pulses bilaterally. SKIN: No lesions or rashes. MUSCULOSKELETAL: No chest tenderness to palpation. NEUROLOGIC: Nonfocal. No gross sensory or motor deficits bilateral upper or lower extremities. Cardiac studies: Echocardiogram on 03/07/2020 at [facility]: -LV is normal in size. -EF between 20 and 25%. -Diastolic function was not adequately assessed. -Severe global hypokinesis with anterior wall dyskinesis noted on the short axis views. -Small, hemodynamically insignificant pericardial effusion. -Trace TR. Reason For Visit: N83.209 UNSPECIFIED OVARIAN CYST, UNSPECIFIED SIDE Physical Exam Vital Signs: Temp Pulse Resp BP Pulse Ox 97.9 F 81 20 97/68 L 93 03/09/20 03:07 03/09/20 03:07 03/09/20 03:07 03/09/20 03:07 03/09/20 04:18 Intake & Output 03/07/20 03/08/20 03/09/20 06:59 06:59 06:59 Intake Total 4004 1224 Output Total 3425 1025 Balance 579 199 Weight 80.7 kg Results Laboratory Results: 03/08/20 04:50 03/08/20 04:50 03/07/20 03/07/20 03/07/20 17:03 17:03 22:28 Creatine Kinase 184 H 230 H CK-MB (CK-2) 2.22 Troponin I 0.096 03/07/20 03/08/20 03/08/20 22:28 04:50 04:50 Creatine Kinase 268 H CK-MB (CK-2) 2.76 2.63 Troponin I 0.198 0.187 Impressions: Chest X-Ray 03/07/20 12:41 IMPRESSION: Diffuse patchy bilateral parenchymal opacities - correlate for pulmonary edema/volume overload. 03/08/20 04:50 03/08/20 04:50 MCV 82 fl (80-97) 03/08/20 04:50 MCH 27.2 pg (27.0-33.4) 03/08/20 04:50 MCHC 33.0 g/dL (32.0-36.0) 03/08/20 04:50 RDW 16.9 % (11.5-14.0) H 03/08/20 04:50 Seg Neutrophils % Not Reportable 03/08/20 04:50 Chloride 103 mmol/L (98-107) 03/08/20 04:50 Carbon Dioxide 25 mmol/L (22-30) 03/08/20 04:50 Anion Gap 8 (5-19) 03/08/20 04:50 Est GFR ( Amer) > 60 (>60) 03/08/20 04:50 Glucose 160 mg/dL (75-110) H 03/08/20 04:50 Calcium 9.1 mg/dL (8.4-10.2) 03/08/20 04:50 Magnesium 2.0 mg/dL (1.6-2.3) 03/08/20 04:50 Total Bilirubin 1.0 mg/dL (0.2-1.3) 03/03/20 11:16 AST 20 U/L (14-36) 03/03/20 11:16 Alkaline Phosphatase 80 U/L (38-126) 03/03/20 11:16 Total Protein 7.9 g/dL (6.3-8.2) 03/03/20 11:16 Albumin 4.8 g/dL (3.5-5.0) 03/03/20 11:16 Triglycerides 183 mg/dL (<150) H 03/08/20 04:50 Cholesterol 179.90 mg/dL (0-200) 03/08/20 04:50 LDL Cholesterol Direct 108 mg/dL (<100) H 03/08/20 04:50 VLDL Cholesterol 36.6 mg/dL (10-31) H 03/08/20 04:50 HDL Cholesterol 39 mg/dL (>40) L 03/08/20 04:50 Urine Color YELLOW 03/03/20 10:47 Urine Appearance SLIGHTLY-CLOUDY 03/03/20 10:47 Urine pH 5.0 (5.0-9.0) 03/03/20 10:47 Ur Specific [place] 1.021 03/03/20 10:47 Urine Protein NEGATIVE mg/dL (NEGATIVE) 03/03/20 10:47 Urine Glucose (UA) NEGATIVE mg/dL (NEGATIVE) 03/03/20 10:47 Urine Ketones NEGATIVE mg/dL (NEGATIVE) 03/03/20 10:47 Urine Blood NEGATIVE (NEGATIVE) 03/03/20 10:47 Urine Nitrite NEGATIVE (NEGATIVE) 03/03/20 10:47 Ur Leukocyte Esterase SMALL (NEGATIVE) H 03/03/20 10:47 Urine WBC (Auto) 11 /HPF 03/03/20 10:47 Urine RBC (Auto) 1 /HPF 03/03/20 10:47 Blood Type B POSITIVE 03/03/20 11:16 Antibody Screen NEGATIVE 03/03/20 11:16 03/07/20 03/07/20 03/07/20 17:03 17:03 22:28 Creatine Kinase 184 H 230 H CK-MB (CK-2) 2.22 Troponin I 0.096 03/07/20 03/08/20 03/08/20 22:28 04:50 04:50 Creatine Kinase 268 H CK-MB (CK-2) 2.76 2.63 Troponin I 0.198 0.187 Current Medication List Generic Name Dose Route Start Last Admin Trade Name Freq PRN Reason Stop Dose Admin Aspirin 81 mg 03/07/20 22:00 03/08/20 21:50 Ecotrin 81 Mg Ec Tablet PO 04/06/20 21:59 81 mg QHS NEHA Administration Atorvastatin Calcium 40 mg 03/07/20 22:00 03/08/20 21:50 Lipitor 40 Mg Tablet PO 04/06/20 21:59 40 mg QHS NEHA Administration Dextrose 12.5 gm 03/07/20 12:22 Dextrose Inj 50% Syringe (25 Gm/50 Ml) IV 04/06/20 12:21 PRN PRN FOR BG 50-69 IN ALERT PATIENT Protocol Dextrose 25 gm 03/07/20 12:22 Dextrose Inj 50% Syringe (25 Gm/50 Ml) IV 04/06/20 12:21 PRN PRN PER PROTOCOL Protocol Docusate Sodium 100 mg 03/08/20 10:00 03/08/20 17:20 Colace 100 Mg Capsule PO 04/07/20 09:59 Not Given BID NEHA Famotidine 20 mg 03/08/20 10:00 03/08/20 10:59 Pepcid Inj/Pf 20 Mg/2 Ml Sdv IV 04/07/20 09:59 20 mg DAILY NEHA Administration Furosemide 20 mg 03/08/20 10:00 03/08/20 17:20 Lasix 20 Mg Tablet PO 04/07/20 09:59 Not Given BID NEHA Glucagon 1 mg 03/07/20 12:22 Glucagen Inj 1 Mg Vial IM 04/06/20 12:21 PRN PRN Evaluate for BG < 70 Protocol Glucose 15 gm 03/07/20 12:22 Glutose 40% Gel 15 Gm Tube PO 04/06/20 12:21 PRN PRN FOR BG 50-69 IN ALERT PATIENT Protocol Glucose 30 gm 03/07/20 12:22 Glutose 40% Gel 15 Gm Tube PO 04/06/20 12:21 PRN PRN FOR BG < 50 IN ALERT PATIENT Protocol Hydromorphone HCl 2 mg 03/07/20 12:14 Dilaudid Inj/Pf 2 Mg/Ml Ampule IV 03/14/20 12:13 Q3HP PRN PAIN SCALE OF 5 Ibuprofen 800 mg 03/07/20 12:14 Motrin 800 Mg Tablet PO NOW PRN pain/cramps Insulin Human Regular 0 - 12 unit 03/07/20 16:00 03/08/20 21:42 Humulin R (Pyxis) Insulin 100 Unit/Ml 3ml SUBCUT 04/06/20 15:59 Not Given ACHS PENDING SALE TO [facility] Protocol Metoprolol Succinate 12.5 mg 03/08/20 10:00 03/08/20 10:53 Toprol Xl 25 Mg Tab.Sr PO 04/07/20 09:59 Not Given DAILY PENDING SALE TO [facility] Morphine Sulfate 2 mg 03/07/20 16:51 03/08/20 21:53 Morphine 10 Mg/Ml Inj IV 03/14/20 16:50 2 mg Q4HP PRN Administration FOR PAIN SCALE 3-5 Nicotine 1 each 03/07/20 16:45 Nicoderm 14 Mg/24 Hr Transdermal Patch TD 04/06/20 16:44 DAILYP PRN WITHDRAWAL SYMPTOMS Nitroglycerin 1 tab 03/07/20 16:52 Nitrostat 0.4 Mg (1/150 Gr) Tabs 25/Bottle SL 04/06/20 16:51 Q5MP PRN FOR CHEST PAIN Ondansetron HCl 4 mg 03/07/20 12:24 Zofran Inj/Pf 4 Mg/2 Ml Sdv IV 04/06/20 12:23 Q6HP PRN FOR NAUSEA/VOMITING Oxycodone/Acetaminophen 1 tab 03/07/20 12:14 03/08/20 02:45 Percocet 5-325 Mg Tablet PO 03/14/20 12:13 1 tab Q4HP PRN Administration pain 1-2 Oxycodone/Acetaminophen 2 tab 03/07/20 12:14 03/08/20 18:16 Percocet 5-325 Mg Tablet PO 03/14/20 12:13 2 tab Q4HP PRN Administration pain 3-5 Promethazine HCl 25 mg 03/07/20 12:24 Phenergan Inj 50 Mg/1 Ml Vial IM 04/06/20 12:23 Q4HP PRN UNRESOLVED NAUSEA/VOMITING Sacubitril/Valsartan 1 tab 03/07/20 22:00 03/08/20 21:50 Entresto 24 Mg/26 Mg Tablet PO 04/06/20 21:59 1 tab Q12 NEHA Administration Discontinued Medications Generic Name Dose Route Start Last Admin Trade Name Freq PRN Reason Stop Dose Admin Albuterol Confirm 03/07/20 12:59 03/07/20 13:02 Ventolin 0.083% Neb 2.5 Mg/3 Ml Ampul Administered 03/07/20 13:00 2.5 mg Dose Administration 2.5 mg NEB .STK-MED ONE Albuterol 2.5 mg 03/07/20 12:50 03/07/20 17:10 Ventolin 0.083% Neb 2.5 Mg/3 Ml Ampul NEB 03/07/20 12:51 Not Given NOW ONE Bupivacaine HCl Confirm 03/07/20 08:19 03/07/20 08:53 Sensorcaine-Mpf 0.25% Inj 30 Ml Sdv Administered 03/07/20 08:20 6 ml Dose Administration 30 ml .ROUTE .STK-MED ONE Bupivacaine HCl/Epinephrine Bitart Confirm 03/07/20 08:20 Sensorcaine 0.25%/Epi Mpf 30 Ml Sdv Administered 03/07/20 08:21 Dose 30 ml .ROUTE .STK-MED ONE Dexamethasone Sodium Phosphate Confirm 03/07/20 06:23 Decadron Inj 4 Mg/Ml Vial Administered 03/07/20 06:24 Dose 4 mg .ROUTE .STK-MED ONE Dexamethasone Sodium Phosphate 8 mg 03/07/20 13:53 Decadron Inj 4 Mg/Ml Vial .ROUTE 03/07/20 13:54 .STK-MED ONE Diphenhydramine HCl 12.5 mg 03/07/20 09:48 Benadryl Inj 50 Mg/1 Ml Vial IV 03/07/20 12:48 .WHILE IN PACU PRN ITCHING Fentanyl Citrate Confirm 03/07/20 06:23 Sublimaze Inj/Pf 100 Mcg/2 Ml Ampule Administered 03/07/20 06:24 Dose 100 mcg .ROUTE .STK-MED ONE Fentanyl Citrate 25 mcg 03/07/20 09:48 Sublimaze Inj/Pf 100 Mcg/2 Ml Ampule IV 03/07/20 12:48 .WHILE IN PACU PRN PAIN SCALE 2-3 Fentanyl Citrate 12.5 mcg 03/07/20 09:48 Sublimaze Inj/Pf 100 Mcg/2 Ml Ampule IV 03/07/20 12:48 .WHILE IN PACU PRN PAIN SCALE OF 1 Fentanyl Citrate 50 mcg 03/07/20 09:48 Sublimaze Inj/Pf 100 Mcg/2 Ml Ampule IV 03/07/20 12:48 .WHILE IN PACU PRN PAIN SCALE 4-5 Furosemide Confirm 03/07/20 13:31 03/07/20 13:40 Lasix Inj/Pf 40 Mg/4 Ml Sdv Administered 03/07/20 13:32 20 mg Dose Administration 40 mg .ROUTE .STK-MED ONE Furosemide 20 mg 03/07/20 13:25 03/07/20 17:10 Lasix Inj/Pf 20 Mg/2 Ml Sdv IV 03/07/20 13:26 Not Given NOW ONE Furosemide 20 mg 03/07/20 22:00 Lasix Inj/Pf 20 Mg/2 Ml Sdv IV 04/06/20 21:59 Q12 NEHA Furosemide 20 mg 03/07/20 22:00 03/07/20 21:19 Lasix Inj/Pf 20 Mg/2 Ml Sdv IV 04/06/20 21:59 20 mg Q12 NEHA Administration Furosemide 20 mg 03/08/20 10:00 Lasix 20 Mg Tablet PO 04/07/20 09:59 DAILY NEHA Glycopyrrolate 1 mg 03/07/20 13:53 Robinul 1 Mg/5 Ml Vial .ROUTE 03/07/20 13:54 .STK-MED ONE Lactated Ringer's 1,000 mls @ 150 mls/hr 03/07/20 05:00 Lactated Ringers 1000 Ml Iv Soln IV 03/07/20 23:59 CONTINUOUS PRN THIS MED IS NOT "PRN" Cefazolin Sodium/Dextrose Confirm 03/07/20 05:14 03/07/20 17:10 Ancef Rtu 2 Gm/D5w 50 Ml Premix Bag Administered 03/07/20 05:15 Not Given Dose 2 gm in 50 mls @ ud IV .STK-MED ONE Lactated Ringer's 1,000 mls @ 125 mls/hr 03/07/20 12:14 Lactated Ringers 1000 Ml Iv Soln IV 04/06/20 12:13 CONTINUOUS PRN THIS MED IS NOT "PRN" Cefazolin Sodium/Dextrose 2 gm in 50 mls @ 100 mls/hr 03/07/20 14:00 03/07/20 17:11 Ancef Rtu 2 Gm/D5w 50 Ml Premix Bag IV 03/07/20 21:59 Not Given Q8 NEHA Ketorolac Tromethamine 30 mg 03/07/20 12:14 03/07/20 16:46 Toradol Inj/Pf 30 Mg/1 Ml Sdv IV 30 mg NOW PRN Administration PAIN SCALE OF 1 Lidocaine HCl 0.4 ml 03/07/20 05:00 Xylocaine 0.5% Inj-Pf (5 Mg/Ml) 50 Ml Sdv SUBCUT 03/07/20 23:59 PRN PRN PRIOR TO ESTABLISHING IV LINE Meperidine HCl 12.5 mg 03/07/20 09:48 Demerol Inj 25 Mg/1 Ml Syringe IV 03/07/20 12:48 .WHILE IN PACU PRN Shivering Metoprolol Succinate 12.5 mg 03/08/20 10:00 Toprol Xl 25 Mg Tab.Sr PO 04/07/20 09:59 DAILY NEHA Midazolam HCl Confirm 03/07/20 06:23 Versed 2 Mg/2 Ml Inj Administered 03/07/20 06:24 Dose 2 mg .ROUTE .STK-MED ONE Morphine Sulfate 3 mg 03/07/20 09:48 Morphine 10 Mg/Ml Inj IV 03/07/20 12:48 .WHILE IN PACU PRN FOR PAIN Morphine Sulfate Confirm 03/07/20 13:10 03/07/20 13:25 Morphine 10 Mg/Ml Inj Administered 03/07/20 13:11 3 mg Dose Administration 10 mg .ROUTE .STK-MED ONE Neostigmine Methylsulfate 10 mg 03/07/20 13:53 Prostigmin Inj 10 Mg/10 Ml Vial .ROUTE 03/07/20 13:54 .STK-MED ONE Nitroglycerin 0.5 gm 03/07/20 18:00 03/08/20 05:38 Nitrol 2% Ointment 1gm Packet TP 04/06/20 17:59 0.5 gm Q6 NEHA Administration Ondansetron HCl Confirm 03/07/20 06:23 Zofran Inj/Pf 4 Mg/2 Ml Sdv Administered 03/07/20 06:24 Dose 4 mg .ROUTE .STK-MED ONE Ondansetron HCl 4 mg 03/07/20 09:48 Zofran Inj/Pf 4 Mg/2 Ml Sdv IV 03/07/20 12:48 .WHILE IN PACU PRN NAUSEA AND VOMITING Promethazine HCl 12.5 mg 03/07/20 09:48 Phenergan Inj 25 Mg/1 Ml Vial IV 03/07/20 12:48 .WHILE IN PACU PRN NAUSEA AND VOMITING Promethazine HCl 25 mg 03/07/20 09:48 Phenergan Inj 25 Mg/1 Ml Vial IV 03/07/20 12:48 .WHILE IN PACU PRN NAUSEA AND VOMITING Propofol Confirm 03/07/20 06:24 Diprivan Inj 200 Mg/20 Ml Vial Administered 03/07/20 06:25 Dose 200 mg IV .STK-MED ONE Succinylcholine Chloride 200 mg 03/07/20 13:53 Anectine Inj 200 Mg/10 Ml Vial .ROUTE 03/07/20 13:54 .STK-MED ONE Sugammadex Sodium Confirm 03/07/20 12:22 Bridion 200 Mg/2 Ml Sdv Administered 03/07/20 12:23 Dose 200 mg IV .STK-MED ONE Vasopressin Confirm 03/07/20 08:20 Vasopressin Inj 20 Unit/1 Ml Vial Administered 03/07/20 08:21 Dose 20 unit .ROUTE .STK-MED ONE Vecuronium [place] 10 mg 03/07/20 13:53 Norcuron Inj 10 Mg Vial IV 03/07/20 13:54 .STK-MED ONE Assessment & Plan - Diagnosis (1) Heart failure with reduced ejection fraction Is this a current diagnosis for this admission?: Yes Plan: Heart failure with reduced ejection fraction Plan: 60-year-old female with cardiac risk factors of tobacco use, sedentary lifestyle, diabetes and hyperlipidemia who has developed acute onset of heart failure with reduced ejection fraction with an ejection fraction between 20 and 25% on echocardiogram on 03/07/2020. The patient is resting comfortably this morning and without ischemic or heart failure symptoms. Unfortunately I do not believe her intake and output is accurate. She is on GDMT. Her blood pressure is on the low side but it appears to correlate with the administration of morphine. She has no evidence of fluid overload on exam any longer. The etiology for heart failure is unknown at this time however she has significant cardiac risk factors that warrants further ischemic assessment that could be done with nuclear stress testing versus invasively with left heart catheterization. Given her risk factors and her dyskinesis of the anterior wall on echocardiography I favor the latter however the rate limiting step is her surgical issue. We need to discuss with her surgeon the surgical bleeding risk if she needs coronary intervention with PCI/stenting as she will required to be on dual antiplatelet therapy for at least 6 months if not longer. If her surgic al bleeding risk is prohibitive we will then send the patient home with a LifeVest with plans for LHC in the outpatient setting. Recommendations: -Continue with p.o. Lasix.. -Restrict fluid intake to 1500 cc daily. -Low sodium diet, less than 1500 mg daily. -Strict intake and output. -Daily weights. -Ischemic assessment with LHC at [facility]. We will likely transfer her on Tuesday after discussing surgical bleeding risk with her [employer] surgeon. -Discontinue nitroglycerin patch. -Quit tobacco.
[2020-03-09] MEDS: INSULIN REG, HUMAN 100 UNIT/ML 3 ML VIAL (PYX) SUBCUT SCH ×4 (08:05→22:43)
--- NOTE | 2020-03-09 10:04 | PDOC PROGRESS REPORT ---
Subjective Progress Note for:: 03/09/20 Reason For Visit: N83.209 UNSPECIFIED OVARIAN CYST, UNSPECIFIED SIDE Feeling good today-states "I feel almost back to normal". Some pain and soreness. Medication helps. She is voiding well without incidence. Passing gas. Feels like her bowels are getting close to moving but has not passed stool yet. Eating well. Sat up in chair yesterday and ambulated yesterday with some dizzine ss once. She has no vaginal bleeding. No Chest pain, shortness of breath, racing heart or cough. Physical Exam - Physical Exam Vital Signs: Temp Pulse Resp BP Pulse Ox 98.2 F 77 16 106/69 98 03/09/20 07:36 03/09/20 07:36 03/09/20 07:36 03/09/20 07:36 03/09/20 07:36 Intake & Output 03/08/20 03/09/20 03/10/20 06:59 06:59 06:59 Intake Total 4004 1335 Output Total 3425 2150 Balance 579 -815 Weight 80.7 kg 79.6 kg General appearance: PRESENT: no acute distress, cooperative Respiratory exam: PRESENT: clear to auscultation colette Cardiovascular exam: PRESENT: RRR, +S1, +S2 Pulses: PRESENT: normal radial pulses Vascular exam: PRESENT: normal capillary refill GI/Abdominal exam: PRESENT: soft - Non-tender. Incisions dry and intact. Extremities exam: PRESENT: full ROM. ABSENT: calf tenderness, clubbing, pedal edema Neurological exam: PRESENT: alert, awake, oriented to person, oriented to place, oriented to time Psychiatric exam: PRESENT: appropriate affect, normal mood Skin exam: PRESENT: dry, intact, warm. ABSENT: cyanosis, rash Result Laboratory Results: 03/09/20 06:29 03/09/20 06:29 03/09/20 03/09/20 06:29 06:29 WBC 10.0 RBC 4.76 Hgb 12.9 Hct 39.3 MCV 83 MCH 27.1 MCHC 32.8 RDW 17.3 H Plt Count 247 Seg Neutrophils % 50.8 Sodium 137.8 Potassium 4.2 Chloride 104 Carbon Dioxide 27 Anion Gap 7 BUN 17 Creatinine 0.75 Est GFR ( Amer) > 60 Glucose 123 H Calcium 9.2 Magnesium 2.2 03/07/20 03/07/2003/07/20 17:03 17:03 22:28 Creatine Kinase 184 H 230 H CK-MB (CK-2) 2.22 Troponin I 0.096 03/07/20 03/08/20 03/08/20 22:28 04:50 04:50 Creatine Kinase 268 H CK-MB (CK-2) 2.76 2.63 Troponin I 0.198 0.187 Impressions: Chest X-Ray 03/07/20 12:41 IMPRESSION: Diffuse patchy bilateral parenchymal opacities - correlate for pulmonary edema/volume overload. Assessment & Plan - Diagnosis (1) Status post complete hysterectomy Is this a current diagnosis for this admission?: Yes Plan: Incisions dry and intact Bowel sounds audible, passing gas now Tolerating diabetic diet No vaginal bleeding. Abdominal binder PRN Voiding well. Hgb stable at 12. WBC down to normal now Encourage ambulation May shower over incisions and pat dry when she feels able From PST SUPERVISOR-post op stand point she is ready for discharge (2) Diabetes type 2, controlled Is this a current diagnosis for this admission?: Yes Plan: Diabetic diet Hgb A1C 6.7 Contine current care per Dr. Castillo care (3) Heart failure with reduced ejection fraction Is this a current diagnosis for this admission?: Yes Plan: Care per Dr. Castillo and Cardiology recommendations (4) Pulmonary edema Qualifiers: Chronicity: acute Qualified Code(s): J81.0 - Acute pulmonary edema Is this a current diagnosis for this admission?: Yes Plan: Respiratory status is greatly improved. Comfortable on room air with O2 Sat good. No cough, SOB or CP Continue current care per Dr. Castillo and Cardiology recommendations - Time Time Spent with patient: 15-24 minutes
[2020-03-09] MEDS: DOCUSATE SODIUM 100 MG CAPSULE PO SCH ×2 (11:03→17:13)
[2020-03-09] MEDS: OXYCODONE-ACETAMINOPHEN 5-325 MG TABLET PO PRN ×4 (11:03→22:54)
[2020-03-09] MEDS: FUROSEMIDE 20 MG TABLET PO SCH ×2 (11:03→17:43)
[2020-03-09] MEDS: SACUBITRIL/VALSARTAN 24 MG/26 MG TABLET PO SCH ×2 (11:03→22:43)
[2020-03-09] MEDS: METOPROLOL SUCCINATE 25 MG TAB.SR.24H PO SCH (11:03)
[2020-03-09] MEDS: FAMOTIDINE INJ/PF 20 MG/2 ML SDV IV SCH (11:04)
[2020-03-09] MEDS ORDERED: BISACODYL 5 MG TABEC PO PRN (11:48)
[2020-03-09] MEDS ORDERED: POLYETHYLENE GLYCOL 3350 POWDER 17 GM/1 PACKET PO PRN (11:49)
--- NOTE | 2020-03-09 14:05 | PDOC PROGRESS REPORT ---
Subjective Progress Note for:: 03/09/20 Subjective:: The patient is resting comfortably and is on room air with saturations greater than 90%. She is having limited discomfort in the pelvis from her surgery. Gynecology has in fact signed off. The biggest decision is moving forward with diagnostic and interventional efforts. Reason For Visit: N83.209 UNSPECIFIED OVARIAN CYST, UNSPECIFIED SIDE Physical Exam Vital Signs: Temp Pulse Resp BP Pulse Ox 98.4 F 98 18 98/69 L 96 03/09/20 12:12 03/09/20 12:12 03/09/20 12:12 03/09/20 12:12 03/09/20 12:12 Intake & Output 03/08/20 03/09/20 03/10/20 06:59 06:59 06:59 Intake Total 4004 1335 Output Total 3425 2150 Balance 579 -815 Weight 80.7 kg 79.6 kg General appearance: PRESENT: no acute distress, cooperative, well-developed Head exam: PRESENT: atraumatic, normocephalic Eye exam: PRESENT: conjunctiva pink, EOMI. ABSENT: scleral icterus Ear exam: PRESENT: normal external ear exam. ABSENT: bleeding, drainage Mouth exam: PRESENT: moist, tongue midline Respiratory exam: PRESENT: clear to auscultation colette, symmetrical, unlabored. ABSENT: accessory muscle use, rales, rhonchi, tachypnea, wheezes Cardiovascular exam: PRESENT: RRR, +S1, +S2. ABSENT: bradycardia, irregular rhythm GI/Abdominal exam: PRESENT: normal bowel sounds, soft. ABSENT: distended, guarding, tenderness - Except at surgical site Rectal exam: PRESENT: deferred Gentrourinary exam: ABSENT: indwelling catheter Extremities exam: PRESENT: pedal edema Musculoskeletal exam: PRESENT: ambulatory, normal inspection. ABSENT: deformity Neurological exam: PRESENT: alert, awake, oriented to person, oriented to place, oriented to time, oriented to situation, CN II-XII grossly intact, normal gait. ABSENT: altered, motor sensory deficit Psychiatric exam: PRESENT: appropriate affect, normal mood. ABSENT: agitated, anxious Focused psych exam: ABSENT: delusional, paranoid, restlessness Skin exam: PRESENT: dry, warm. ABSENT: rash Results Laboratory Results: 03/09/20 06:29 03/09/20 06:29 03/09/20 03/09/20 06:29 06:29 WBC 10.0 RBC 4.76 Hgb 12.9 Hct 39.3 MCV 83 MCH 27.1 MCHC 32.8 RDW 17.3 H Plt Count 247 Seg Neutrophils % 50.8 Sodium 137.8 Potassium 4.2 Chloride 104 Carbon Dioxide 27 Anion Gap 7 BUN 17 Creatinine 0.75 Est GFR ( Amer) > 60 Glucose 123 H Calcium 9.2 Magnesium 2.2 03/07/20 03/07/20 03/07/20 17:03 17:03 22:28 Creatine Kinase 184 H 230 H CK-MB (CK-2) 2.22 Troponin I 0.096 03/07/20 03/08/20 03/08/20 22:28 04:50 04:50 Creatine Kinase 268 H CK-MB (CK-2) 2.76 2.63 Troponin I 0.198 0.187 Impressions: Chest X-Ray 03/07/20 12:41 IMPRESSION: Diffuse patchy bilateral parenchymal opacities - correlate for pu lmonary edema/volume overload. Assessment and Plan - Diagnosis (1) Acute systolic heart failure Is this a current diagnosis for this admission?: Yes Plan: Continue current medication regimen. The patient's blood pressures have been a little on the low side. We may need to make several adjustments. Not acutely symptomatic for heart failure at this time. We will continue the aspirin daily, Lipitor, metoprolol, Entresto and furosemide. The furosemide dose may need to be decreased if appropriate due to low blood pressure. At this point she would not tolerate Aldactone due to the low blood pressure. (2) Chest pain Qualifiers: Chest pain type: precordial pain Qualified Code(s): R07.2 - Precordial pain Is this a current diagnosis for this admission?: Yes Plan: No further chest pain. Sublingual nitroglycerin is available if needed. 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 Hemoglobin A1c was less than 7. (4) Cigarette nicotine dependence Qualifiers: Substance use status: uncomplicated Qualified Code(s): F17.210 - Nicotine dependence, cigarettes, uncomplicated Is this a current diagnosis for this admission?: Yes Plan: I emphasized the need to stop smoking. I believe she does understand this and hopefully will be successful. (5) Status post complete hysterectomy Is this a current diagnosis for this admission?: Yes Plan: Gynecology is satisfied with her state. They will be available if needed. (6) Acute respiratory failure with hypoxia Is this a current diagnosis for this admission?: Yes Plan: Back to room air. Resolved. (7) Pulmonary edema Qualifiers: Chronicity: acute Qualified Code(s): J81.0 - Acute pulmonary edema Is this a current diagnosis for this admission?: Yes Plan: Responded well to diuresis. Acute pulmonary edema resolved. (8) Coronary artery disease Qualifiers: Coronary Disease-Associated Artery/Lesion type: unspecified vessel or lesion type [place] vs. transplanted heart: [place] heart Associated angina: with unspecified angina Qualified Code(s): I25.119 - Atherosclerotic heart disease of [place] coronary artery with unspecified angina pectoris Is this a current diagnosis for this admission?: Yes Plan: Given the patient's comorbidities of diabetes, tobacco use, hypertension and hypercholesterolemia there is a very marked probability that she has underlying coronary disease. She will need a left heart catheterization. I spoke to Dr. Farmer and antiplatelet therapy would be acceptable under the circumstances. Ideally waiting another week would be better however with the patient's low ejection fraction and high probability atherosclerosis with compromised myocardial perfusion, obtaining the left heart cath as soon as possible might be prudent. In his circumstance the risk of postoperative bleeding would be outweighed by the benefit of cardiac intervention. - Time Time Spent with patient: 15-24 minutes Medications reviewed and adjusted accordingly: Yes Anticipated discharge: Other - Likely transfer to [facility] for left heart catheterization
[2020-03-09] MEDS: ATORVASTATIN CALCIUM 40 MG TABLET PO SCH (22:41)
[2020-03-09] MEDS: ASPIRIN 81 MG TABLET, ENT COATED PO SCH (22:43)
[2020-03-10] MEDS ORDERED: FUROSEMIDE INJ/PF 40 MG/4 ML SDV ONE (06:38)
--- NOTE | 2020-03-10 08:00 | Progress Note ---
Provider Note Provider Note: This case was discussed with plastic welder, Dr. Kiran Ng, who agreed with my assessment and plan and graciously agreed to proceed with left heart catheterization on MAR 17 at [facility] [employer]. Please keep the patient NPO after midnight tonight.
[2020-03-10] MEDS: INSULIN REG, HUMAN 100 UNIT/ML 3 ML VIAL (PYX) SUBCUT SCH ×4 (08:05→22:21)
--- NOTE | 2020-03-10 08:06 | PDOC PROGRESS REPORT ---
Subjective Progress Note for:: 03/10/20 Reason For Visit: N83.209 UNSPECIFIED OVARIAN CYST, UNSPECIFIED SIDE Feeling good today-states "I feel back to normal". Some soreness but pain much better managed now. She is voiding well without incidence. Passing gas. Moving bowels. Eating well. Ambulating without incidence. She has no vaginal bleeding. No Chest pain, shortness of breath, racing heart or cough. Physical Exam - Physical Exam Vital Signs: Temp Pulse Resp BP Pulse Ox 97.9 F 86 18 114/65 96 03/10/20 03:11 03/10/20 07:00 03/10/20 03:11 03/10/20 03:11 03/10/20 03:56 Intake & Output 03/09/20 03/10/20 03/11/20 06:59 06:59 06:59 Intake Total 1335 1381 Output Total 2150 2900 Balance -815 -1519 Weight 79.6 kg 77 kg Additional comments: General appearance: PRESENT: no acute distress, cooperative Respiratory exam: PRESENT: clear to auscultation colette Cardiovascular exam: PRESENT: RRR, +S1, +S2 Pulses: PRESENT: normal radial pulses Vascular exam: PRESENT: normal capillary refill GI/Abdominal exam: PRESENT: soft - Non-tender. Incisions dry and intact. Extremities exam: PRESENT: full ROM. ABSENT: calf tenderness, clubbing, pedal edema Neurological exam: PRESENT: alert, awake, oriented to person, oriented to place, oriented to time Psychiatric exam: PRESENT: appropriate affect, normal mood Skin exam: PRESENT: dry, intact, warm. ABSENT: cyanosis, rash Result Laboratory Results: 03/09/20 06:29 03/09/20 06:29 03/07/20 03/07/20 03/07/20 17:03 17:03 22:28 Creatine Kinase 184 H 230 H CK-MB (CK-2) 2.22 Troponin I 0.096 03/07/20 03/08/20 03/08/20 22:28 04:50 04:50 Creatine Kinase 268 H CK-MB (CK-2) 2.76 2.63 Troponin I 0.198 0.187 Impressions: Chest X-Ray 03/07/20 12:41 IMPRESSION: Diffuse patchy bilateral parenchymal opacities - correlate for pulmonary edema/volume overload. Assessment & Plan - Diagnosis (1) Status post complete hysterectomy Is this a current diagnosis for this admission?: Yes Plan: Incisions dry and intact Bowel sounds audible, passing stools Tolerating diabetic diet No vaginal bleeding. Abdominal binder PRN Voiding well. Hgb stable at 12. 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 (2) Diabetes type 2, controlled Is this a current diagnosis for this admission?: Yes Plan: Diabetic diet Hgb A1C 6.7 Contine current care per Dr. Castillo care (3) Heart failure with reduced ejection fraction Is this a current diagnosis for this admission?: Yes Plan: Care per Dr. Castillo and Cardiology recommendations (4) Pulmonary edema Qualifiers: Chronicity: acute Qualified Code(s): J81.0 - Acute pulmonary edema Is this a current diagnosis for this admission?: Yes Plan: Respiratory status is greatly improved. Comfortable on room air with O2 Sat good. No cough, SOB or CP Continue current care per Dr. Castillo and Cardiology recommendations - Time Time Spent with patient: 15-24 minutes
[2020-03-10] MEDS: OXYCODONE-ACETAMINOPHEN 5-325 MG TABLET PO PRN ×3 (08:10→22:23)
[2020-03-10] MEDS: FUROSEMIDE 20 MG TABLET PO SCH ×2 (10:36→17:51)
[2020-03-10] MEDS: FAMOTIDINE INJ/PF 20 MG/2 ML SDV IV SCH (10:36)
[2020-03-10] MEDS: SACUBITRIL/VALSARTAN 24 MG/26 MG TABLET PO SCH ×2 (10:36→22:25)
[2020-03-10] MEDS: DOCUSATE SODIUM 100 MG CAPSULE PO SCH ×2 (10:36→17:55)
[2020-03-10] MEDS: METOPROLOL SUCCINATE 25 MG TAB.SR.24H PO SCH (10:37)
--- NOTE | 2020-03-10 11:11 | PDOC PROGRESS REPORT ---
Subjective Progress Note for:: 03/10/20 Subjective:: Patient is resting comfortably in bed. She is aware of her cardiac catheterization scheduled for tomorrow morning. She had several questions that were answered. Reason For Visit: N83.209 UNSPECIFIED OVARIAN CYST, UNSPECIFIED SIDE Physical Exam Vital Signs: Temp Pulse Resp BP Pulse Ox 97.9 F 100 18 115/70 100 03/10/20 03:11 03/10/20 07:53 03/10/20 07:53 03/10/20 07:53 03/10/20 07:53 Intake & Output 03/09/20 03/10/20 03/11/20 06:59 06:59 06:59 Intake Total 1335 1381 Output Total 2150 2900 Balance -815 -1519 Weight 79.6 kg 77 kg General appearance: PRESENT: no acute distress Head exam: PRESENT: atraumatic, normocephalic Eye exam: PRESENT: conjunctiva pink. ABSENT: scleral icterus Ear exam: PRESENT: normal external ear exam. ABSENT: bleeding, drainage Mouth exam: PRESENT: moist, tongue midline Respiratory exam: PRESENT: clear to auscultation colette, symmetrical, unlabored. ABSENT: prolonged expiratory phas, rales, rhonchi, tachypnea, wheezes Cardiovascular exam: PRESENT: RRR, +S1, +S2. ABSENT: diastolic murmur, irregular rhythm, systolic murmur GI/Abdominal exam: PRESENT: normal bowel sounds, soft. ABSENT: distended, guarding, tenderness Rectal exam: PRESENT: deferred Extremities exam: ABSENT: pedal edema Musculoskeletal exam: PRESENT: ambulatory, normal inspection. ABSENT: deformity, dislocation Neurological exam: PRESENT: alert, awake, oriented to person, oriented to place, oriented to time, oriented to situation, CN II-XII grossly intact. ABSENT: altered, motor sensory deficit Psychiatric exam: PRESENT: appropriate affect, normal mood. ABSENT: agitated, anxious Focused psych exam: ABSENT: delusional, paranoid, restlessness Results Laboratory Results: 03/09/20 06:29 03/09/20 06:29 03/07/20 03/07/20 03/07/20 17:03 17:03 22:28 Creatine Kinase 184 H 230 H CK-MB (CK-2) 2.22 Troponin I 0.096 03/07/20 03/08/20 03/08/20 22:28 04:50 04:50 Creatine Kinase 268 H CK-MB (CK-2) 2.76 2.63 Troponin I 0.198 0.187 Impressions: Chest X-Ray 03/07/20 12:41 IMPRESSION: Diffuse patchy bilateral parenchymal opacities - correlate for pulmonary edema/volume overload. Assessment and Plan - Diagnosis (1) Acute systolic heart failure Is this a current diagnosis for this admission?: Yes Plan: Continue current regimen. Patient has been off of oxygen and remained stable on room air. Cardiac catheterization planned for tomorrow. (2) Heart failure with reduced ejection fraction Is this a current diagnosis for this admission?: Yes Plan: Because of the low ejection fraction I have placed an order for a Zoll LifeVest. I explained to the patient that even if there is percutaneous angioplasty or bypass surgery her ejection fraction may recover but it will be slow. It is recommended that she wear the LifeVest until her ejection fraction is greater than 30 to 35%. If it does not recover then she may be evaluated for an implanted defibrillator. (3) Chest pain Qualifiers: Chest pain type: precordial pain Qualified Code(s): R07.2 - Precordial pain Is this a current diagnosis for this admission?: Yes Plan: No further chest pain. Sublingual nitroglycerin is available if needed. (4) Hyperglycemia due to type 2 diabetes mellitus Qualifiers: Diabetes mellitus termite control technician insulin use: with termite control technician use Qualified Code(s): E11.65 - Type 2 diabetes mellitus with hyperglycemia; Z79.4 - watermelon inspector (current) use of insulin Is this a current diagnosis for this admission?: Yes Plan: The patient is on long-acting insulin at home. She takes 30 units. With sliding scale all of her sugars have been below 200. Most below 150. I will add 4 units of Lantus at night at this time. She will be n.p.o. after midnight and therefore will start the Lantus dosing tomorrow night. (5) Cigarette nicotine dependence Qualifiers: Substance use status: uncomplicated Qualified Code(s): F17.210 - Nicotine dependence, cigarettes, uncomplicated Is this a current diagnosis for this admission?: Yes Plan: I emphasized the need to stop smoking. I believe she does understand this and hopefully will be successful. (6) Status post complete hysterectomy Is this a current diagnosis for this admission?: Yes Plan: Reviewed with gynecology. Dr. Herring stated that waiting 1 week to potentially initiate aspirin and Plavix would be reasonable but certainly if obtaining the left heart catheterization was necessary and then she feels no problematic bleeding would occur due to the patient's hysterectomy. Appreciate Dr. Herring's continued input. (7) Acute respiratory failure with hypoxia Is this a current diagnosis for this admission?: Yes Plan: Continues to saturate adequately on room air (8) Pulmonary edema Qualifiers: Chronicity: acute Qualified Code(s): J81.0 - Acute pulmonary edema Is this a current diagnosis for this admission?: Yes Plan: Resolved (9) Coronary artery disease Qualifiers: Coronary Disease-Associated Artery/Lesion type: unspecified vessel or lesion type [place] vs. transplanted heart: [place] heart Associated angina: with unspecified angina Qualified Code(s): I25.119 - Atherosclerotic heart disease of [place] coronary artery with unspecified angina pectoris Is this a current diagnosis for this admission?: Yes Plan: For left heart catheterization tomorrow - Time Time Spent with patient: 15-24 minutes Medications reviewed and adjusted accordingly: Yes
[2020-03-10 11:12] LABS: INHIBIN A ULTRASENSITIVE 1.8 pg/mL (.)
--- NOTE | 2020-03-10 14:16 | PDOC PROGRESS REPORT ---
Subjective Progress Note for:: 03/10/20 Subjective:: Patient seen and examined. Resting comfortably. Denies dyspnea or chest pain. Reason For Visit: N83.209 UNSPECIFIED OVARIAN CYST, UNSPECIFIED SIDE Physical Exam Vital Signs: Temp Pulse Resp BP Pulse Ox 97.9 F 86 16 97/68 L 97 03/10/20 11:29 03/10/20 11:29 03/10/20 11:29 03/10/20 11:29 03/10/20 11:29 Intake & Output 03/09/20 03/10/20 03/11/20 06:59 06:59 06:59 Intake Total 1335 1381 1189 Output Total 2150 2900 Balance -815 -1519 1189 Weight 79.6 kg 77 kg General appearance: PRESENT: no acute distress, cooperative, well-developed, well-nourished Head exam: PRESENT: atraumatic, normocephalic Eye exam: PRESENT: conjunctiva pink, EOMI Mouth exam: PRESENT: moist Respiratory exam: PRESENT: decreased breath sounds, prolonged expiratory phas, symmetrical, unlabored Cardiovascular exam: PRESENT: RRR, +S1, +S2 Pulses: PRESENT: normal radial pulses GI/Abdominal exam: PRESENT: soft Rectal exam: PRESENT: deferred Musculoskeletal exam: PRESENT: normal inspection Neurological exam: PRESENT: alert, awake, oriented to person, oriented to place, oriented to time, oriented to situation Psychiatric exam: PRESENT: appropriate affect Skin exam: PRESENT: dry, intact, normal color Results Laboratory Results: 03/09/20 06:29 03/09/20 06:29 03/07/20 03/07/20 03/07/20 17:03 17:03 22:28 Creatine Kinase 184 H 230 H CK-MB (CK-2) 2.22 Troponin I 0.096 03/07/20 03/08/20 03/08/20 22:28 04:50 04:50 Creatine Kinase 268 H CK-MB (CK-2) 2.76 2.63 Troponin I 0.198 0.187 EKG Comments: Transthoracic echocardiogram-LV ejection fraction 20 to 25%. Twelve-lead EKG. 03/07/2020. Independently reviewed by me. Sinus rhythm, left atrial abnormality, borderline left ventricular hypertrophy, QTC is 441 ms Creatinine 0.75-03/09/2020 Troponin 0.096 0.198 0.187 Chest x-ray pulmonary vascular congestion, cardiomegaly Impressions: Chest X-Ray 03/07/20 12:41 IMPRESSION: Diffuse patchy bilateral parenchymal opacities - correlate for pulmonary edema/volume overload. Assessment & Plan - Diagnosis (1) Pulmonary edema Qualifiers: Chronicity: acute Qualified Code(s): J81.0 - Acute pulmonary edema Is this a current diagnosis for this admission?: Yes Plan: Much improved. Continue diuretic (2) Heart failure with reduced ejection fraction Is this a current diagnosis for this admission?: Yes Plan: New finding of congestive heart failure with LV dysfunction with reduced ejection fraction estimated at 20-25 is Agree with initiation of guideline directed medical therapy for LV dysfunction and congestive heart failure With new finding of LV dysfunction and given age and risk factors for coronary disease cardiac authorization is being pursued. This is tentatively planned for tomorrow. I discussed this with the patient and all questions were answered. Keep n.p.o. for possible cardiac cath tomorrow. - Notes Notes: Planning for cardiac catheterization for tomorrow Keep n.p.o. past midnight for procedure tomorrow morning.
--- NOTE | 2020-03-10 17:31 | Progress Note ---
Provider Note Provider Note: The risks, benefits and alternatives of left heart catheterization were explained to the patient. Her questions were answered and she expressed her wish to proceed.
[2020-03-10] MEDS: ASPIRIN 81 MG TABLET, ENT COATED PO SCH (22:25)
[2020-03-10] MEDS: ATORVASTATIN CALCIUM 40 MG TABLET PO SCH (22:25)
[2020-03-11] MEDS ORDERED: VERAPAMIL HCL 5 MG, LIDOCAINE HCL/PF 4 ML, NORMAL SALINE 12 ML, NITROGLYCERIN/D5W 0.4 M... IV PRN ×5 (05:00)
[2020-03-11 05:18] LABS: ABSOLUTE BASOPHILS # (AUTO) 0.1 10^3/uL (0.0-0.2); ABSOLUTE EOSINOPHILS # (AUTO) 0.3 10^3/uL (0.0-0.6); ABSOLUTE LYMPHOCYTES (AUTO) 3.5 10^3/uL (0.5-4.7); ABSOLUTE MONOCYTES (AUTO) 0.8 10^3/uL (0.1-1.4); ABSOLUTE NEUT (AUTO) 7.3 10^3/uL (1.7-8.2); BASOPHILS % (AUTO) 0.8 % (0-2); EOSINOPHILS % (AUTO) 2.6 % (0-6); HEMATOCRIT 42.7 % (36.0-47.0); HEMOGLOBIN 13.9 g/dL (12.0-15.5); MEAN CORPUSCULAR HEMOGLOBIN 26.5 pg (27.0-33.4); MEAN CORPUSCULAR HGB CONC 32.5 g/dL (32.0-36.0); MEAN CORPUSCULAR VOLUME 81 fl (80-97); MONOCYTES % (AUTO) 6.6 % (3-13); PLATELET COUNT 265 10^3/uL (150-450); RED BLOOD COUNT 5.24 10^6/uL (3.72-5.28); RED CELL DISTRIBUTION WIDTH 17.5 % (11.5-14.0); TOTAL CELLS COUNTED % (AUTO) 100 %
[2020-03-11 05:22] LABS: INTERNATIONAL RATION (INR) 0.92; PROTHROMBIN TIME 12.3 SEC (11.4-15.4)
[2020-03-11 05:38] LABS: ANION GAP 11 (5-19); BLOOD UREA NITROGEN 22 mg/dL (7-20); CALCIUM 10.2 mg/dL (8.4-10.2); CARBON DIOXIDE 24 mmol/L (22-30); CHLORIDE 102 mmol/L (98-107); GLUCOSE 153 mg/dL (75-110); POTASSIUM 4.4 mmol/L (3.6-5.0)
[2020-03-11 06:01] LABS: ANISOCYTOSIS 1+; OVALOCYTES SLIGHT; PLATELET COMMENT ADEQUATE; POIKILOCYTOSIS 1+; POLYCHROMASIA 1+; TEAR DROP CELLS SLIGHT
[2020-03-11] MEDS: INSULIN REG, HUMAN 100 UNIT/ML 3 ML VIAL (PYX) SUBCUT SCH ×3 (07:47→17:06)
[2020-03-11] MEDS ORDERED: LIDOCAINE 1% INJ-PF (10 MG/ML) 30 ML SDV ONE (08:01)
[2020-03-11] MEDS ORDERED: HEPARIN SODIUM,PORCINE/NS/PF 2,000 UNIT/1,000 ML RTUINJ IV ONE (08:01)
[2020-03-11] MEDS ORDERED: MIDAZOLAM HCL INJ 5 MG/1 ML VIAL ONE (08:34)
[2020-03-11] MEDS ORDERED: FENTANYL CITRATE INJ/PF 100 MCG/2 ML AMPUL ONE (08:35)
[2020-03-11] MEDS ORDERED: HEPARIN SOD (PORCINE) 1,000 UNIT/ML 10 ML VIAL ONE (08:35)
[2020-03-11] MEDS ORDERED: DIPHENHYDRAMINE HCL 25 MG CAPSULE ONE (09:10)
[2020-03-11] MEDS ORDERED: ASPIRIN 325 MG TABLET, ENT COATED PO ONE (09:10)
[2020-03-11] MEDS ORDERED: DIAZEPAM 5 MG TABLET ONE (09:10)
--- NOTE | 2020-03-11 10:24 | Operative Report ---
Operative Report-offset label rewinder Operative Report: PROCEDURE NOTES: Left heart catheterization, bilateral selective coronary angiography, left ventricular CINE angiography. After informed consent was obtained the patient was brought into the cardiac catheterization lab. Sterile prep and drape of the right wrist was carried out followed by infiltration with 1% Xylocaine. Using the percutaneous Seldinger technique, a 6 Czech Introducer sheath was placed into the right radial artery. 5 ml of Radial cocktail was injected to diminish the likelihood of radial arterial spasm. Selective left and right coronary angiography was performed with a 6 Czech Barbeau pre-formed coronary catheter respectively. A 6 Czech Barbeau catheter was subsequently introduced in the artery and advanced to the ascending aorta. The aortic valve was crossed and the left ventricle was entered. Repeated measurements of the left heart pressure were made after injection of the contrast agent as used for left ventricle CINE-ography. ANALYSIS OF THE ANGIOGRAM: Selective CINE angiograms were obtained with the injection of contrast material into the left and right coronary ostium and left ventricular cavity. The left ventricular injection demonstrates moderately-severe global hypokinesis . Ejection fraction is 25 % . CORONARY ANGIOGRAPHY: Coronary angiography performed in multiple projections revealed the following; Right Dominant System. LEFT MAIN: Moderate caliber vessels. LEFT CIRCUMFLEX/OBTUSE MARGINAL: Moderate caliber vessel and appears angiographically patent LEFT ANTERIOR DESCENDING/DIAGONAL: Moderate caliber vessel. It appears angiographically patent. RIGHT CORONARY ARTERY: Moderate caliber vessel The Radial arterial sheath was removed and a TR Band Applied for adequate hemostasis. Patient tolerated procedure well. Moderate conscious sedation was carried out with continuous oxygen saturation, intermittent hemnodynamic monitoring under the direct supervision of myself as administered via Unleavened Dough Mixer nurse involved in case for a total duration of 28 minutes. Patient tolerated procedure well. Impression: Non-Ischemic Cardiomyaopthy Plan: As per referring Community Liaison Officer for Cardiomyopathy and CHF treatment .
[2020-03-11] MEDS ORDERED: ACETAMINOPHEN 325 MG TABLET PO PRN (10:53)
[2020-03-11] MEDS ORDERED: NORMAL SALINE 1000 ML 1,000 ML IV PRN (10:54)
[2020-03-11] MEDS: METOPROLOL SUCCINATE 25 MG TAB.SR.24H PO SCH ×2 (11:07→11:21)
[2020-03-11] MEDS: FUROSEMIDE 20 MG TABLET PO SCH ×2 (11:19→17:07)
[2020-03-11] MEDS: DOCUSATE SODIUM 100 MG CAPSULE PO SCH ×2 (11:19→17:07)
[2020-03-11] MEDS: SACUBITRIL/VALSARTAN 24 MG/26 MG TABLET PO SCH (11:20)
[2020-03-11] MEDS: FAMOTIDINE INJ/PF 20 MG/2 ML SDV IV SCH (11:20)
--- NOTE | 2020-03-11 12:20 | PDOC PROGRESS REPORT ---
Subjective Progress Note for:: 03/11/20 Reason For Visit: N83.209 UNSPECIFIED OVARIAN CYST, UNSPECIFIED SIDE Feeling good today-states "I feel so good". Some soreness but no pain. She is voiding well without incidence. Passing gas and moving bowels. Eating well. Ambulating without incidence yesterday but has not been up today due to cath. She has no vaginal bleeding. No Chest pain, shortness of breath, racing heart or cough. Physical Exam - Physical Exam Vital Signs: Temp Pulse Resp BP Pulse Ox 98 F 101 H 16 122/74 96 03/11/20 11:15 03/11/20 11:15 03/11/20 11:30 03/11/20 11:30 03/11/20 11:30 Intake & Output 03/10/20 03/11/20 03/12/20 06:59 06:59 06:59 Intake Total 1381 2444 Output Total 2900 1400 Balance -1519 1044 Weight 77 kg 77.2 kg Additional comments: General appearance: PRESENT: no acute distress, cooperative Respiratory exam: PRESENT: clear to auscultation colette Cardiovascular exam: PRESENT: RRR, +S1, +S2 Pulses: PRESENT: normal radial pulses Vascular exam: PRESENT: normal capillary refill GI/Abdominal exam: PRESENT: soft - Non-tender. Incisions dry and intact. Extremities exam: PRESENT: full ROM. ABSENT: calf tenderness, clubbing, pedal edema Neurological exam: PRESENT: alert, awake, oriented to person, oriented to place, oriented to time Psychiatric exam: PRESENT: appropriate affect, normal mood Skin exam: PRESENT: dry, intact, warm. ABSENT: cyanosis, rash Result Laboratory Results: 03/11/20 04:26 03/11/20 04:26 03/11/20 03/11/20 04:26 04:26 WBC 12.0 H RBC 5.24 Hgb 13.9 Hct 42.7 MCV 81 MCH 26.5 L MCHC 32.5 RDW 17.5 H Plt Count 265 Seg Neutrophils % 61.0 Sodium 136.5 L Potassium 4.4 Chloride 102 Carbon Dioxide 24 Anion Gap 11 BUN 22 H Creatinine 0.87 Est GFR ( Amer) > 60 Glucose 153 H Calcium 10.2 Magnesium 2.0 03/07/20 03/07/20 03/07/20 17:03 17:03 22:28 Creatine Kinase 184 H 230 H CK-MB (CK-2) 2.22 Troponin I 0.096 03/07/20 03/08/20 03/08/20 22:28 04:50 04:50 Creatine Kinase 268 H CK-MB (CK-2) 2.76 2.63 Troponin I 0.198 0.187 Impressions: Chest X-Ray 03/07/20 12:41 IMPRESSION: Diffuse patchy bilateral parenchymal opacities - correlate for pulmonary edema/volume overload. Assessment & Plan - Diagnosis (1) Status post complete hysterectomy Is this a current diagnosis for this admission?: Yes Plan: Incisions dry and intact Bowel sounds audible, passing stools Tolerating diabetic diet No vaginal bleeding. Abdominal binder PRN Voiding well. Hgb stable at 12. WBC down to normal now Encourage ambulation May shower over incisions and pat dry when she feels able From AUTO JOB ESTIMATOR-post op stand point she is ready for discharge and prescriptions sent to her pharmacy for pain meds, will f/u in my office in 10 days (2) Diabetes type 2, controlled Is this a current diagnosis for this admission?: Yes Plan: Diabetic diet Hgb A1C 6.7 Contine current care per hospitalist (3) Heart failure with reduced ejection fraction Is this a current diagnosis for this admission?: Yes Plan: Heart cath this am with non-ischemic findings. Plan for care per cardiology. Discussed importance of following their recommendations with patient and she reports she is on board. SHe thinks she is going home today. Discussed with her that from AUTO JOB ESTIMATOR stand point she is ready for discharge but cardiology and hospitalist will let us know when she is ready for discharge. (4) Pulmonary edema Qualifiers: Chronicity: acute Qualified Code(s): J81.0 - Acute pulmonary edema Is this a current diagnosis for this admission?: Yes Plan: VRespiratory status is greatly improved. Comfortable on room air with O2 Sat good. No cough, SOB or CP Continue current care per hospitalist and Cardiology recommendations - Time Time Spent with patient: 15-24 minutes
[2020-03-11 16:42] VITALS: BP 91/49
--- NOTE | 2020-03-11 16:46 | PDOC DISCHARGE SUMMARY ---
Impression - Admit/DC Date/PCP Admission Date/Primary Care Provider: 03/10/20 08:13 FIDEL Daniella SAEZ, CREDIT RISK MANAGER-Michael Discharge Date: 03/11/20 - Assessment Summary: (1) Acute systolic heart failure Is this a current diagnosis for this admission?: Yes Plan: Continue current regimen. Patient has been off of oxygen and remained stable on room air. Cardiac catheterization planned for tomorrow. 09/11/2019-patient went for cardiac catheter today as per Dr. Ng she has clean coronaries. Patient has dilated nonischemic cardiomyopathy requiring LifeVest. (2) Heart failure with reduced ejection fraction Is this a current diagnosis for this admission?: Yes Plan: Because of the low ejection fraction I have placed an order for a [employer] LifeVest. I explained to the patient that even if there is percutaneous angioplasty or bypass surgery her ejection fraction may recover but it will be slow. It is recommended that she wear the LifeVest until her ejection fraction is greater than 30 to 35%. If it does not recover then she may be evaluated for an implanted defibrillator. 03/11/2020-patient EF is around 35. Has a dilated nonischemic cardiomyopathy. Going home on Entresto, furosemide 20 mg twice a day, metoprolol 12.5 mg p.o. daily. Also on aspirin and atorvastatin. (3) Chest pain Qualifiers: Chest pain type: precordial pain Qualified Code(s): R07.2 - Precordial pain Is this a current diagnosis for this admission?: Yes Plan: No further chest pain. Sublingual nitroglycerin is available if needed. 03/11/2020-no complaints of chest pains today patient went for cardiac cath and which was normal as per Dr. Ng. (4) Hyperglycemia due to type 2 diabetes mellitus Qualifiers: Diabetes mellitus terminal gauger supervisor insulin use: with detention use Qualified Code(s): E11.65 - Type 2 diabetes mellitus with hyperglycemia; Z79.4 - roasterman (current) use of insulin Is this a current diagnosis for this admission?: Yes Plan: The patient is on long-acting insulin at home. She takes 30 units. With sliding scale all of her sugars have been below 200. Most below 150. I will add 4 units of Lantus at night at this time. She will be n.p.o. after midnight and therefore will start the Lantus dosing tomorrow night. 03/11/2020-patient has type 2 diabetes mellitus blood sugar this morning 174. Patient is advised to continue Lantus at home. (5) Cigarette nicotine dependence Qualifiers: Substance use status: uncomplicated Qualified Code(s): F17.210 - Nicotine dependence, cigarettes, uncomplicated Is this a current diagnosis for this admission?: Yes Plan: I emphasized the need to stop smoking. I believe she does understand this and hopefully will be successful. (6) Status post complete hysterectomy Is this a current diagnosis for this admission?: Yes Plan: Reviewed with gynecology. Dr. Merrill stated that waiting 1 week to potentially initiate aspirin and Plavix would be reasonable but certainly if obtaining the left heart catheterization was necessary and then she feels no problematic bleeding would occur due to the patient's hysterectomy. Appreciate Dr. Merrill's continued input. (7) Acute respiratory failure with hypoxia Is this a current diagnosis for this admission?: Yes Plan: Continues to saturate adequately on room air 03/11/2020-acute respiratory failure with hypoxia secondary to pulmonary edema resolved. Pulse ox today's 94% on 2 L. (8) Pulmonary edema Qualifiers: Chronicity: acute Qualified Code(s): J81.0 - Acute pulmonary edema Is this a current diagnosis for this admission?: Yes Plan: Resolved (9) Coronary artery disease Qualifiers: Coronary Disease-Associated Artery/Lesion type: unspecified vessel or lesion type [place] vs. transplanted heart: [place] heart Associated angina: with unspecified angina Qualified Code(s): I25.119 - Atherosclerotic heart disease of [place] coronary artery with unspecified angina pectoris Is this a current diagnosis for this admission?: Yes Plan: For left heart catheterization tomorrow 03/11/2020-cardiac cath came back normal. - Time Time Spent with patient: 15-24 minutes Medications reviewed and adjusted accordingly: Yes - Additional Information Resuscitation Status: Full Code Discharge Diet: As Tolerated, Diabetic Discharge Activity: Activity As Tolerated, No Driving, No Lifting Over 10 Pounds, Pelvic Rest, Slowly Increase Activity, No tub bath, Walk Frequently Referrals: LOLIS BRISENO MD [ACTIVE STAFF] - 03/19/20 9:45 am FIDEL SAEZ FNP-C [Primary Care Provider] - 03/18/20 10:00 am TRAY MERRILL MD [ACTIVE PROVISIONAL STAFF] - 03/17/20 8:30 am (10 days ) Prescriptions: Docusate Sodium [Colace 100 mg Capsule] 100 mg PO BID 30 Days #60 capsule Aspirin [Ecotrin 81 mg EC Tablet] 81 mg PO QHS 30 Days #30 tabec Sacubitril/Valsartan [Entresto 24 mg/26 mg Tablet] 1 tab PO Q12 60 Days #30 tablet Furosemide [Lasix 20 mg Tablet] 20 mg PO BID 30 Days #60 tablet Atorvastatin Calcium [Lipitor 40 mg Tablet] 40 mg PO QHS 30 Days #30 tablet Ibuprofen [Motrin 800 mg Tablet] 800 mg PO NOW PRN 10 Days #30 tablet PRN Reason: Oxycodone HCl/Acetaminophen [Percocet 5-325 mg Tablet] 1 tab PO Q4HP PRN 5 Days #30 tablet PRN Reason: Metoprolol Succinate [Toprol Xl 25 mg Tab.sr] 12.5 mg PO DAILY 30 Days #30 tab.sr.24h Home Medications: Insulin Detemir [Levemir Flextouch] 30 unit SQ Q12H #20 ml 08/09/15 Insulin Lispro [Humalog Kwikpen U-100] 15 unit SQ ASDIR #15 ml 08/09/15 Docusate Sodium [Colace 100 mg Capsule] 100 mg PO BID 30 Days #60 capsule 03/10/20 Ibuprofen [Motrin 800 mg Tablet] 800 mg PO NOW PRN 10 Days #30 tablet 03/10/20 Oxycodone HCl/Acetaminophen [Percocet 5-325 mg Tablet] 1 tab PO Q4HP PRN 5 Days #30 tablet 03/10/20 Aspirin [Ecotrin 81 mg EC Tablet] 81 mg PO QHS 30 Days #30 tabec 03/11/20 Atorvastatin Calcium [Lipitor 40 mg Tablet] 40 mg PO QHS 30 Days #30 tablet 03/11/20 Furosemide [Lasix 20 mg Tablet] 20 mg PO BID 30 Days #60 tablet 03/11/20 Metoprolol Succinate [Toprol Xl 25 mg Tab.sr] 12.5 mg PO DAILY 30 Days #30 tab.sr.24h 03/11/20 Sacubitril/Valsartan [Entresto 24 mg/26 mg Tablet] 1 tab PO Q12 60 Days #30 tablet 03/11/20 History of Present Illiness History of Present Illness: MADY YBARRA is a 60 year old female 60 year old female who underwent laparoscopic hysterectomy and salpingectomy. Postoperatively she began coughing up white frothy sputum and was hypoxic with pulse ox in the 70s. She was placed on oxygen and did not respond to n onrebreather and was placed on BiPAP. She began to respond to BiPAP. She was also given furosemide and has subsequently diuresed 1.5 L. She is currently less short of breath. She is still on BiPAP but we are attempting to wean off BiPAP to supplemental oxygen. She did report some chest pressure postop. She reports a past medical history of only diabetes mellitus with mild diabetic neuropathy. She is currently resting comfortably. She no longer has any chest pain. She is admitted to IMCU room 316. I did have a chance to briefly review the echocardiogram and it appears that the left ventricle global motion is decreased. Hospital Course Hospital Course: 60 year old female who underwent laparoscopic hysterectomy and salpingectomy. Postoperatively she began coughing up white frothy sputum and was hypoxic with pulse ox in the 70s. She was placed on oxygen and did not respond to nonrebreather and was placed on BiPAP. She began to respond to BiPAP. She was also given furosemide and has subsequently diuresed 1.5 L. She is currently less short of breath. She is still on BiPAP but we are attempting to wean off BiPAP to supplemental oxygen. She did report some chest pressure postop. She reports a past medical history of only diabetes mellitus with mild diabetic neuropathy. She is currently resting comfortably. She no longer has any chest pain. She is admitted to IMCU room 316. I did have a chance to briefly review the echocardiogram and it appears that the left ventricle global motion is decreased. [id number]-peho-old female admitted laparoscopic hysterectomy and salpingectomy. Medical consult was called because of the acute respiratory failure with hypoxia. Echocardiogram was done found to have EF of 30 to 35%. Patient also started complaining of chest pains and cardiac cath was done which was normal study. Patient is going home on LifeVest because of the dilated nonischemic cardiomyopathy. She is 30 to 35%. And is going home on Entresto, Lasix, beta-abena, aspirin, atorvastatin. Physical Exam Vital Signs: Temp Pulse Resp BP Pulse Ox 98 F 99 14 114/65 96 03/11/20 15:59 03/11/20 15:59 03/11/20 15:59 03/11/20 15:59 03/11/20 15:59 Intake & Output 03/10/20 03/11/20 03/12/20 06:59 06:59 06:59 Intake Total 1381 2444 480 Output Total 2900 1400 800 Balance -1519 1044 -320 Weight 77 kg 77.2 kg General appearance: PRESENT: no acute distress, obese Head exam: PRESENT: atraumatic Eye exam: PRESENT: PERRLA Ear exam: PRESENT: normal external ear exam Mouth exam: PRESENT: neck supple Teeth exam: PRESENT: poor dentation Neck exam: PRESENT: carotid bruit Respiratory exam: PRESENT: decreased breath sounds Cardiovascular exam: PRESENT: RRR. ABSENT: diastolic murmur, rubs, systolic murmur GI/Abdominal exam: PRESENT: normal bowel sounds, soft. ABSENT: distended, guarding, mass, organolmegaly, rebound, tenderness Rectal exam: PRESENT: deferred Extremities exam: PRESENT: full ROM. ABSENT: calf tenderness, clubbing, pedal edema Neurological exam: PRESENT: alert, awake, oriented to person, oriented to place, oriented to time, oriented to situation, CN II-XII grossly intact. ABSENT: motor sensory deficit Psychiatric exam: PRESENT: appropriate affect, normal mood. ABSENT: homicidal ideation, suicidal ideation Results Laboratory Results: WBC 12.0 10^3/uL (4.0-10.5) H 03/11/20 04:26 RBC 5.24 10^6/uL (3.72-5.28) 03/11/20 04:26 Hgb 13.9 g/dL (12.0-15.5) 03/11/20 04:26 Hct 42.7 % (36.0-47.0) 03/11/20 04:26 MCV 81 fl (80-97) 03/11/20 04:26 MCH 26.5 pg (27.0-33.4) L 03/11/20 04:26 MCHC 32.5 g/dL (32.0-36.0) 03/11/20 04:26 RDW 17.5 % (11.5-14.0) H 03/11/20 04:26 Plt Count 265 10^3/uL (150-450) 03/11/20 04:26 Lymph % (Auto) 29.0 % (13-45) 03/11/20 04:26 [place] % (Auto) 6.6 % (3-13) 03/11/20 04:26 Eos % (Auto) 2.6 % (0-6) 03/11/20 04:26 Baso % (Auto) 0.8 % (0-2) 03/11/20 04:26 Absolute Neuts (auto) 7.3 10^3/uL (1.7-8.2) 03/11/20 04:26 Absolute Lymphs (auto) 3.5 10^3/uL (0.5-4.7) 03/11/20 04:26 Absolute Monos (auto) 0.8 10^3/uL (0.1-1.4) 03/11/20 04:26 Absolute Eos (auto) 0.3 10^3/uL (0.0-0.6) 03/11/20 04:26 Absolute Basos (auto) 0.1 10^3/uL (0.0-0.2) 03/11/20 04:26 Total Counted 100 03/08/20 04:50 Seg Neutrophils % 61.0 % (42-78) 03/11/20 04:26 Seg Neuts % (Manual) 83 % (42-78) H 03/08/20 04:50 Lymphocytes % (Manual) 12 % (13-45) L 03/08/20 04:50 Monocytes % (Manual) 4 % (3-13) 03/08/20 04:50 Eosinophils % (Manual) 0 % (0-6) 03/08/20 04:50 Basophils % (Manual) 1 % (0-2) 03/08/20 04:50 Abs Neuts (Manual) 17.8 10^3/uL (1.7-8.2) H 03/08/20 04:50 Abs Lymphs (Manual) 2.6 10^3/uL (0.5-4.7) 03/08/20 04:50 Abs Monocytes (Manual) 0.9 10^3/uL (0.1-1.4) 03/08/20 04:50 Absolute Eos (Manual) 0.0 10^3/uL (0.0-0.6) 03/08/20 04:50 Abs Basophils (Manual) 0.2 10^3/uL (0.0-0.2) 03/08/20 04:50 Toxic Vacuolation PRESENT 03/08/20 04:50 Large Platelets PRESENT 03/08/20 04:50 Giant Platelets PRESENT 03/08/20 04:50 Platelet Comment ADEQUATE 03/11/20 04:26 Polychromasia 1+ 03/11/20 04:26 Hypochromasia SLIGHT 03/08/20 04:50 Poikilocytosis 1+ 03/11/20 04:26 Anisocytosis 1+ 03/11/20 04:26 Tear Drop Cells SLIGHT 03/11/20 04:26 Ovalocytes SLIGHT 03/11/20 04:26 PT 12.3 SEC (11.4-15.4) 03/11/20 04:26 INR 0.92 03/11/20 04:26 Sodium 136.5 mmol/L (137-145) L 03/11/20 04:26 Potassium 4.4 mmol/L (3.6-5.0) 03/11/20 04:26 Chloride 102 mmol/L (98-107) 03/11/20 04:26 Carbon Dioxide 24 mmol/L (22-30) 03/11/20 04:26 Anion Gap 11 (5-19) 03/11/20 04:26 BUN 22 mg/dL (7-20) H 03/11/20 04:26 Creatinine 0.87 mg/dL (0.52-1.25) 03/11/20 04:26 Est GFR ( Amer) > 60 (>60) 03/11/20 04:26 Est GFR (MDRD) Non-Af > 60 (>60) 03/11/20 04:26 Glucose 153 mg/dL (75-110) H 03/11/20 04:26 POC Glucose 176 mg/dL (70-110) H 03/11/20 15:54 Hemoglobin A1c % 6.7 % (4.7-6.0) H 03/08/20 04:50 Calcium 10.2 mg/dL (8.4-10.2) 03/11/20 04:26 Magnesium 2.0 mg/dL (1.6-2.3) 03/11/20 04:26 Total Bilirubin 1.0 mg/dL (0.2-1.3) 03/03/20 11:16 Direct Bilirubin 0.0 mg/dL (0.0-0.4) 03/03/20 11:16 Neonat Total Bilirubin Not Reportable 03/03/20 11:16 Neonat Direct Bilirubin Not Reportable 03/03/20 11:16 Neonat Indirect Bili Not Reportable 03/03/20 11:16 AST 20 U/L (14-36) 03/03/20 11:16 ALT 15 U/L (<35) 03/03/20 11:16 Alkaline Phosphatase 80 U/L (38-126) 03/03/20 11:16 Lactate Dehydrogenase 193 U/L (120-246) 03/03/20 11:16 Creatine Kinase 268 U/L (30-135) H 03/08/20 04:50 CK-MB (CK-2) 2.63 ng/mL (<4.55) 03/08/20 04:50 Troponin I 0.187 ng/mL 03/08/20 04:50 Total Protein 7.9 g/dL (6.3-8.2) 03/03/20 11:16 Albumin 4.8 g/dL (3.5-5.0) 03/03/20 11:16 Triglycerides 183 mg/dL (<150) H 03/08/20 04:50 Cholesterol 179.90 mg/dL (0-200) 03/08/20 04:50 LDL Cholesterol Direct 108 mg/dL (<100) H 03/08/20 04:50 VLDL Cholesterol 36.6 mg/dL (10-31) H 03/08/20 04:50 HDL Cholesterol 39 mg/dL (>40) L 03/08/20 04:50 Tumor Marker AFP 4.1 ng/mL (0.0-8.3) 03/03/20 11:16 Inhibin A 1.8 pg/mL (.) 03/03/20 11:16 Inhibin B <7.0 pg/mL (0.0-16.9) 03/03/20 11:16 Urine Color YELLOW 03/03/20 10:47 Urine Appearance SLIGHTLY-CLOUDY 03/03/20 10:47 Urine pH 5.0 (5.0-9.0) 03/03/20 10:47 Ur Specific [place] 1.021 03/03/20 10:47 Urine Protein NEGATIVE mg/dL (NEGATIVE) 03/03/20 10:47 Urine Glucose (UA) NEGATIVE mg/dL (NEGATIVE) 03/03/20 10:47 Urine Ketones NEGATIVE mg/dL (NEGATIVE) 03/03/20 10:47 Urine Blood NEGATIVE (NEGATIVE) 03/03/20 10:47 Urine Nitrite NEGATIVE (NEGATIVE) 03/03/20 10:47 Urine Bilirubin NEGATIVE (NEGATIVE) 03/03/20 10:47 Urine Urobilinogen NEGATIVE mg/dL (<2.0) 03/03/20 10:47 Ur Leukocyte Esterase SMALL (NEGATIVE) H 03/03/20 10:47 Urine WBC (Auto) 11 /HPF 03/03/20 10:47 Urine RBC (Auto) 1 /HPF 03/03/20 10:47 U Hyaline Cast (Auto) 1 /LPF 03/03/20 10:47 Urine Bacteria (Auto) TRACE /HPF 03/03/20 10:47 Squamous Epi Cells Auto 17 /HPF 03/03/20 10:47 Amorphous Sediment Auto TRACE /HPF 03/03/20 10:47 Urine Mucus (Auto) RARE /LPF 03/03/20 10:47 Urine Ascorbic Acid NEGATIVE (NEGATIVE) 03/03/20 10:47 Urine Opiates Screen NEGATIVE 03/07/20 07:15 Urine Methadone Screen NEGATIVE 03/07/20 07:15 Ur Barbiturates Screen NEGATIVE 03/07/20 07:15 Ur Phencyclidine Scrn NEGATIVE 03/07/20 07:15 Ur Amphetamines Screen NEGATIVE 03/07/20 07:15 U Benzodiazepines Scrn NEGATIVE 03/07/20 07:15 Urine Cocaine Screen NEGATIVE 03/07/20 07:15 U Marijuana (THC) Screen NEGATIVE 03/07/20 07:15 COVID-19 Source NASOPHARYNGEAL 03/03/20 10:57 COVID-19 (VERONICA) NOT DETECTED 03/03/20 10:57 Blood Type B POSITIVE 03/03/20 11:16 Antibody Screen NEGATIVE 03/03/20 11:16 03/07/20 03/07/20 03/08/20 17:03 22:28 04:50 CK-MB (CK-2) 2.22 2.76 2.63 Troponin I 0.096 0.198 0.187 Impressions: Chest X-Ray 03/03/20 00:00 IMPRESSION: NO SIGNIFICANT RADIOGRAPHIC FINDING IN THE CHEST. Chest X-Ray 03/07/20 12:41 IMPRESSION: Diffuse patchy bilateral parenchymal opacities - correlate for pulmonary edema/volume overload. Plan Plan of Treatment: Patient needs to wear LifeVest 21/03 except when taking shower. It is also advised to follow-up with Dr. Oscar madrigal next week. Time Spent: Greater than 30 Minutes Stroke Is this a Stroke Patient?: No Acute Heart Failure - Is this a Heart Failure Patient?: Yes Documentation of LVEF assessment?: Yes LVEF: LVEF Less Than or Equal to 35% Anticoagulant Therapy: N/A Discharged on Evidence-Based Beta Blockers: Yes Discharged on ARNI?: Yes Discharged on ARB?: Yes For LVEF <35%, discharged on Aldosterone Antagonist?: No-document contraincations Reason(s) not discharged on Aldosterone Antagonist: Other - Hypotension Aldosterone Antagonist Reason - Other: Hypotension
[2020-03-11] MEDS ORDERED: INSULIN GLARGINE,HUM.REC.ANLOG 1,000 UNIT/10 ML VIAL SUBCUT SCH (22:00)
== END 2020-03-11 17:53 | disposition home or self-care (01) | DRG 981 ==
LOC: OROUT 07:11 → 3W 16:24 → OROUT 03-10 08:04 → UNDOADMIN 03-10 08:06 → 3W 03-10 08:06
PROVIDERS: ADMIT Obstetrics & Gynecology; ATTEND Internal Medicine
PROC: 0UT7FZZ Resection of Bilateral Fallopian Tubes, Via Natural or Artificial Opening With Percutaneous Endoscopic Assistance (ICD-10-PCS; 2020-03-07)
PROC: 0UT9FZZ Resection of Uterus, Via Natural or Artificial Opening With Percutaneous Endoscopic Assistance (ICD-10-PCS; 2020-03-07)
PROC: 0UT2FZZ Resection of Bilateral Ovaries, Via Natural or Artificial Opening With Percutaneous Endoscopic Assistance (ICD-10-PCS; 2020-03-07)
PROC: 5A09357 Assistance with Respiratory Ventilation, Less than 24 Consecutive Hours, Continuous Positive Airway Pressure (ICD-10-PCS; 2020-03-07)
PROC: 4A023N7 Measurement of Cardiac Sampling and Pressure, Left Heart, Percutaneous Approach (ICD-10-PCS; principal; 2020-03-11)
DX: I50.21 Acute systolic (congestive) heart failure (principal); J96.01 Acute respiratory failure with hypoxia; I42.8 Other cardiomyopathies; J81.0 Acute pulmonary edema; E87.79 Other fluid overload; E11.40 Type 2 diabetes mellitus with diabetic neuropathy, unspecified; N83.202 Unspecified ovarian cyst, left side; E66.9 Obesity, unspecified; D25.9 Leiomyoma of uterus, unspecified; F17.210 Nicotine dependence, cigarettes, uncomplicated; E78.5 Hyperlipidemia, unspecified; F32.9 Major depressive disorder, single episode, unspecified; F41.9 Anxiety disorder, unspecified; N95.0 Postmenopausal bleeding; R07.2 Precordial pain; E11.65 Type 2 diabetes mellitus with hyperglycemia; I25.119 Atherosclerotic heart disease of native coronary artery with unspecified angina pectoris; Z20.828 Contact with and (suspected) exposure to other viral communicable diseases; Z91.010 Allergy to peanuts; Z79.4 Long term (current) use of insulin; Z83.3 Family history of diabetes mellitus; Z80.0 Family history of malignant neoplasm of digestive organs; Z68.29 Body mass index [BMI] 29.0-29.9, adult; Z71.6 Tobacco abuse counseling; Z79.82 Long term (current) use of aspirin; Z79.899 Other long term (current) drug therapy
CPT/HCPCS: 36415; 71045; 71046; 80048; 80053; 80061; 80307; 81001; 82105; 82550; 82553; 82962; 83036; 83520; 83615; 83735; 840; 84484; 85025; 85027; 85610; 86336; 86850; 86900; 86901; 87635; 88307; 93005; 93010; 93306; 93458; 94660; C1758; C1769; C1887; C9803; G0378; J0330; J0690; J1100; J1644; J1815; J1885; J1940; J2250; J2270; J2405; J2704; J2710; J3010; J3490; J7030; S0028

== ENCOUNTER 2020-04-25 21:35 | Emergency (ER) | payer MEDICAID ==
[2020-04-25] MEDS ORDERED: HYDROCODONE/ACETAMINOPHEN 5-325 MG TABLET PO ONE (22:25)
--- NOTE | 2020-04-25 22:30 | ER Document Report ---
ED Medical Screen (RME) - General Chief Complaint: Post Surgical Pain Stated Complaint: POST OP PAIN,CHEST PAIN Time Seen by Provider: 04/25/20 22:14 Primary Care Provider: FIDEL SAEZ FNP-C [Primary Care Provider] - Follow up as needed Mode of Arrival: Ambulatory Information source: Patient Notes: 60-year-old female presents to ED for complaint of chest pain going up both shoulders and last night. She states she had a laparoscopic transvaginal hysterectomy 7 weeks ago. She states she was having no discomfort and was doing very well with her surgery until last night she had sexual intercourse for the first time. She states it is been approved by the [employer] and she had sudden excruciating pain. She states the pain has been coming and going since then. She states she walked from her house to here tonight because the pain was so bad and she needed something for the pain. Patient is alert oriented respirations regular nonlabored and no obvious distress at this time. She states in the hospital with her hysterectomy they told her she had heart cath and stents she states she has had a hysterectomy cholecystectomy at this point she states she does not smoke she does drinks socially and does not use any illicit drugs. Have given her 1 [place] in the triage area and on a chest pain protocol. Chest is nontender to palpation. She does have some epigastric tenderness. She does have hypoactive bowel sounds. Lung sounds are clear at this time. I have greeted and performed a rapid initial assessment of this patient. A comprehensive ED assessment and evaluation of the patient, analysis of test results and completion of medical decision making process will be conducted by an additional ED providers. TRAVEL OUTSIDE OF THE [place] IN LAST 30 DAYS: No - Related Data Allergies/Adverse Reactions: peanuts Allergy (Uncoded 03/07/20 07:39) Past Medical History - Social History Chew tobacco use (# tins/day): No Frequency of alcohol use: Occasional Drug Abuse: None - Past Medical History Cardiac Medical History: Reports: Hx Hypercholesterolemia Denies: Hx Coronary Artery Disease, Hx Heart Attack, Hx Hypertension Pulmonary Medical History: Denies: Hx Asthma, Hx Bronchitis, Hx COPD, Hx Pneumonia, Hx Tuberculosis Neurological Medical History: Denies: Hx Cerebrovascular Accident, Hx Seizures Endocrine Medical History: Reports: Hx Diabetes Mellitus Type 2 - "diet controlled" Renal/ Medical History: Denies: Hx Peritoneal Dialysis Musculoskeltal Medical History: Denies Hx Arthritis Psychiatric Medical History: Reports: Hx Depression - anxiety Past Surgical History: Reports: Hx Cholecystectomy, Hx Tubal Ligation. Denies: Hx Pacemaker - Immunizations Hx Diphtheria, Pertussis, Tetanus Vaccination: Yes Physical Exam - Vital signs Vitals: Temp Pulse Resp BP Pulse Ox 98.5 F 96 20 119/55 L 96 04/25/20 21:51 04/25/20 21:51 04/25/20 21:51 04/25/20 21:51 04/25/20 21:51 Course - Vital Signs Vital signs: Temp Pulse Resp BP Pulse Ox 98.5 F 96 20 119/55 L 96 04/25/20 22:14 04/25/20 21:51 04/25/20 21:51 04/25/20 21:51 04/25/20 21:51 Doctor's Discharge - Discharge Referrals: FIDEL SAEZ FNP-C [Primary Care Provider] - Follow up as needed
[2020-04-25 22:54] LABS: ABSOLUTE EOSINOPHILS # (AUTO) 0.2 10^3/uL (0.0-0.6); EOSINOPHILS % (AUTO) 2.4 % (0-6); TOTAL CELLS COUNTED % (AUTO) 100 %
[2020-04-25 22:59] LABS: ABSOLUTE LYMPHOCYTES (AUTO) 2.6 10^3/uL (0.5-4.7); ABSOLUTE MONOCYTES (AUTO) 0.7 10^3/uL (0.1-1.4); ABSOLUTE NEUT (AUTO) 4.7 10^3/uL (1.7-8.2); BASOPHILS % (AUTO) 0.4 % (0-2); HEMATOCRIT 38.1 % (36.0-47.0); HEMOGLOBIN 12.4 g/dL (12.0-15.5); MEAN CORPUSCULAR HEMOGLOBIN 26.7 pg (27.0-33.4); MEAN CORPUSCULAR HGB CONC 32.6 g/dL (32.0-36.0); MEAN CORPUSCULAR VOLUME 82 fl (80-97); MONOCYTES % (AUTO) 8.1 % (3-13); PLATELET COUNT 263 10^3/uL (150-450); RED BLOOD COUNT 4.65 10^6/uL (3.72-5.28); RED CELL DISTRIBUTION WIDTH 19.2 % (11.5-14.0); SEGMENTED NEUTROPHILS % (AUTO) 57.1 % (42-78); WHITE BLOOD COUNT 8.2 10^3/uL (4.0-10.5)
[2020-04-25 23:04] LABS: ALBUMIN 4.5 g/dL (3.5-5.0); ALKALINE PHOSPHATASE 88 U/L (38-126); ANION GAP 9 (5-19); ASPARTATE AMINO TRANSFERASE 19 U/L (14-36); BILIRUBIN,DIRECT 0.2 mg/dL (0.0-0.4); BLOOD UREA NITROGEN 18 mg/dL (7-20); CALCIUM 9.5 mg/dL (8.4-10.2); CARBON DIOXIDE 28 mmol/L (22-30); CHLORIDE 105 mmol/L (98-107); CREATINE KINASE 69 U/L (30-135); GLUCOSE 153 mg/dL (75-110); POTASSIUM 3.7 mmol/L (3.6-5.0); TOTAL PROTEIN 7.7 g/dL (6.3-8.2)
--- NOTE | 2020-04-25 23:13 | RADIOLOGY REPORT (SQ) ---
EXAM DESCRIPTION: XR CHEST 2 VIEWS COMPLETED DATE/TME: 04/25/2020 22:25 CLINICAL HISTORY: 60 years, Female, chest pain started tonight COMPARISON: Prior chest radiograph from 03/07/2020 NUMBER OF VIEWS: 2 TECHNIQUE: Frontal and lateral radiographs were obtained LIMITATIONS: None. FINDINGS: Cardiac and mediastinal contours are stable. Lungs are grossly clear. No pleural effusion or pneumothorax. Lucency is noted underneath both hemidiaphragms, indicating pneumoperitoneum. IMPRESSION: Clear lungs. Pneumoperitoneum, the etiology of which is uncertain. copyright 2010 [employer]- All Rights Reserved
[2020-04-25 23:15] LABS: ANISOCYTOSIS 2+; HYPOCHROMASIA SLIGHT; OVALOCYTES 1+; PLATELET COMMENT ADEQUATE; POIKILOCYTOSIS 1+; SCHISTOCYTES SLIGHT; TARGET CELLS SLIGHT; TEAR DROP CELLS SLIGHT
--- NOTE | 2020-04-25 23:35 | EKG REPORT ---
SEVERITY:- ABNORMAL ECG - SINUS RHYTHM PROBABLE LEFT ATRIAL ABNORMALITY LEFT VENTRICULAR HYPERTROPHY : Confirmed by: Chloe Elizondo MD 25-Apr-2020 23:34:39
--- NOTE | 2020-04-26 00:36 | RADIOLOGY REPORT (SQ) ---
EXAM DESCRIPTION: CLINICAL HISTORY: 60 years Female; Pneumoperitoneum on x-ray TECHNIQUE: CT of the abdomen and pelvis with intravenous contrast.. Oral contrastWas not used. All CT scans at this facility use dose modulation, iterative reconstruction, and/or weight based dosing when appropriate to reduce radiation dose to as low as reasonably achievable. This exam was performed according to our department optimization program which includes automated exposure control, adjustment of the mA and/or kv according to patient size and/or use of iterative reconstruction technique. COMPARISON: CT scan of the abdomen and pelvis 09/09/2019 FINDINGS: Lower chest:minimal dependent density is seen in the lung bases. Borderline enlargement of the heart. No pericardial abnormality. Abdomen: Extensive artifact is present in the upper abdomen related to external hardware. Liver and biliary tree: Again seen is hyperdense material consistent with clips in the region of the common bile duct and sophia hepatis. This is consistent with previous cholecystectomy. There is a simple cyst noted in the inferior aspect of the right liver lobe which is unchanged. Homogeneous enhancement of the liver is seen in the portal vein is patent. No biliary dilatation. Pancreas: Normal Spleen:Within normal limits Kidneys: Kidneys are normal in size, shape and position. No stones. No mass or hydronephrosis. Symmetric renal enhancement. Adrenal glands:Within normal limits Vascular structures: Scattered calcified plaque in the aorta and iliac vessels. The mesenteric vessels appear patent. Retroperitoneum: No mass or lymphadenopathy Abdominal wall: normal GI: Scattered stool is present in the colon. No inflammation. There are scattered diverticula. The stomach contains ingested material. Free intraperitoneal air is identified predominantly in the mid and upper aspect of the abdomen and in the region of the sophia hepatis. This suggests that there is GI perforation most likely related to the stomach, gastric outlet or first and second portion of the duodenum. No bowel obstruction.. Appendix: The appendix appears normal. General: Large volume of free intraperitoneal air is seen predominantly in the upper abdomen. No free fluid. Pelvis: Lymph nodes: No mass or lymphadenopathy Bladder: The bladder is mostly empty. Pelvis: Uterus is surgically absent. No adnexal mass. Bones: No acute bone findings. IMPRESSION: Large volume of free intraperitoneal air suggesting perforated viscus. The majority of the air is in the upper abdomen and there is some retroperitoneal air is seen in association in the right upper quadrant. This suggests that the air most likely is a arising from the stomach, gastric outlet or proximal duodenum. No free fluid. No abscess.
--- NOTE | 2020-04-26 01:40 | ER Document Report ---
ED Medical Screen (RME) - General Chief Complaint: Abdominal Pain Stated Complaint: POST OP PAIN,CHEST PAIN Time Seen by Provider: 04/25/20 22:14 Primary Care Provider: FIDEL SAEZ FNP-C [Primary Care Provider] - Follow up as needed Mode of Arrival: Ambulatory Information source: Patient Notes: [facility] [address] [place] [address] Discharge Summary Patient Name: MADY YBARRA Date of : 1960 Patient Status: Inpatient Attending Provider: MONTSE MEJIAS Date: 03/11/20 16:34 Initialization Date: 03/11/20 16:34 Impression - Admit/DC Date/PCP Admission Date/Primary Care Provider: 03/10/20 08:13 VALENTIN LUTHER Discharge Date: 03/11/20 - Assessment Summary: (1) Acute systolic heart failure Is this a current diagnosis for this admission?: Yes Plan: Continue current regimen. Patient has been off of oxygen and remained stable on room air. Cardiac catheterization planned for tomorrow. 09/11/2019-patient went for cardiac catheter today as per Dr. Ng she has clean coronaries. Patient has dilated nonischemic cardiomyopathy requiring LifeVest. (2) Heart failure with reduced ejection fraction Is this a current diagnosis for this admission?: Yes Plan: Because of the low ejection fraction I have placed an order for a Zoll LifeVest. I explained to the patient that even if there is percutaneous angioplasty or bypass surgery her ejection fraction may recover but it will be slow. It is recommended that she wear the LifeVest until her ejection fraction is greater than 30 to 35%. If it does not recover then she may be evaluated for an implanted defibrillator. 03/11/2020-patient EF is around 35. Has a dilated nonischemic cardiomyopathy. Going home on Entresto, furosemide 20 mg twice a day, metoprolol 12.5 mg p.o. daily. Also on aspirin and atorvastatin. (3) Chest pain Qualifiers: Chest pain type: precordial pain Qualified Code(s): R07.2 - Precordial pain Is this a current diagnosis for this admission?: Yes Plan: No further chest pain. Sublingual nitroglycerin is available if needed. 03/11/2020-no complaints of chest pains today patient went for cardiac cath and which was normal as per Dr. Ng. (4) Hyperglycemia due to type 2 diabetes mellitus Qualifiers: Diabetes mellitus residential insulin use: with terminologist use Qualified Code(s): E11.65 - Type 2 diabetes mellitus with hyperglycemia; Z79.4 - assisted (current) use of insulin Is this a current diagnosis for this admission?: Yes Plan: The patient is on long-acting insulin at home. She takes 30 units. With sliding scale all of her sugars have been below 200. Most below 150. I will add 4 units of Lantus at night at this time. She will be n.p.o. after midnight and therefore will start the Lantus dosing tomorrow night. 03/11/2020-patient has type 2 diabetes mellitus blood sugar this morning 174. Patient is advised to continue Lantus at home. (5) Cigarette nicotine dependence Qualifiers: Substance use status: uncomplicated Qualified Code(s): F17.210 - Nicotine dependence, cigarettes, uncomplicated Is this a current diagnosis for this admission?: Yes Plan: I emphasized the need to stop smoking. I believe she does understand this and hopefully will be successful. (6) Status post complete hysterectomy Is this a current diagnosis for this admission?: Yes Plan: Reviewed with gynecology. Dr. Merrill stated that waiting 1 week to potentially initiate aspirin and Plavix would be reasonable but certainly if obtaining the left heart catheterization was necessary and then she feels no problematic bleeding would occur due to the patient's hysterectomy. Appreciate Dr. Merrill's continued input. (7) Acute respiratory failure with hypoxia Is this a current diagnosis for this admission?: Yes Plan: Continues to saturate adequately on room air 03/11/2020-acute respiratory failure with hypoxia secondary to pulmonary edema resolved. Pulse ox today's 94% on 2 L. (8) Pulmonary edema Qualifiers: Chronicity: acute Qualified Code(s): J81.0 - Acute pulmonary edema Is this a current diagnosis for this admission?: Yes Plan: Resolved (9) Coronary artery disease Qualifiers: Coronary Disease-Associated Artery/Lesion type: unspecified vessel or lesion type [place] vs. transplanted heart: [place] heart Associated angina: with unspecified angina Qualified Code(s): I25.119 - Atherosclerotic heart disease of [place] coronary artery with unspecified angina pectoris Is this a current diagnosis for this admission?: Yes Plan: For left heart catheterization tomorrow 03/11/2020-cardiac cath came back normal. - Time Time Spent with patient: 15-24 minutes Medications reviewed and adjusted accordingly: Yes - Additional Information Resuscitation Status: Full Code Discharge Diet: As Tolerated, Diabetic Discharge Activity: Activity As Tolerated, No Driving, No Lifting Over 10 Pounds, Pelvic Rest, Slowly Increase Activity, No tub bath, Walk Frequently Referrals: LOLIS BRISENO MD [ACTIVE STAFF] - 03/19/20 9:45 am FIDEL SAEZ FNP-C [Primary Care Provider] - 03/18/20 10:00 am TRAY MERRILL MD [ACTIVE PROVISIONAL STAFF] - 03/17/20 8:30 am (10 days ) Prescriptions: Docusate Sodium [Colace 100 mg Capsule] 100 mg PO BID 30 Days #60 capsule Aspirin [Ecotrin 81 mg EC Tablet] 81 mg PO QHS 30 Days #30 tabec Sacubitril/Valsartan [Entresto 24 mg/26 mg Tablet] 1 tab PO Q12 60 Days #30 tablet Furosemide [Lasix 20 mg Tablet] 20 mg PO BID 30 Days #60 tablet Atorvastatin Calcium [Lipitor 40 mg Tablet] 40 mg PO QHS 30 Days #30 tablet Ibuprofen [Motrin 800 mg Tablet] 800 mg PO NOW PRN 10 Days #30 tablet PRN Reason: Oxycodone HCl/Acetaminophen [Percocet 5-325 mg Tablet] 1 tab PO Q4HP PRN 5 Days #30 tablet PRN Reason: Metoprolol Succinate [Toprol Xl 25 mg Tab.sr] 12.5 mg PO DAILY 30 Days #30 tab.sr.24h Home Medications: Insulin Detemir [Levemir Flextouch] 30 unit SQ Q12H #20 ml 08/09/15 Insulin Lispro [Humalog Kwikpen U-100] 15 unit SQ ASDIR #15 ml 08/09/15 Docusate Sodium [Colace 100 mg Capsule] 100 mg PO BID 30 Days #60 capsule 03/10/20 Ibuprofen [Motrin 800 mg Tablet] 800 mg PO NOW PRN 10 Days #30 tablet 03/10/20 Oxycodone HCl/Acetaminophen [Percocet 5-325 mg Tablet] 1 tab PO Q4HP PRN 5 Days #30 tablet 03/10/20 Aspirin [Ecotrin 81 mg EC Tablet] 81 mg PO QHS 30 Days #30 tabec 03/11/20 Atorvastatin Calcium [Lipitor 40 mg Tablet] 40 mg PO QHS 30 Days #30 tablet 03/11/20 Furosemide [Lasix 20 mg Tablet] 20 mg PO BID 30 Days #60 tablet 03/11/20 Metoprolol Succinate [Toprol Xl 25 mg Tab.sr] 12.5 mg PO DAILY 30 Days #30 tab.sr.24h 03/11/20 Sacubitril/Valsartan [Entresto 24 mg/26 mg Tablet] 1 tab PO Q12 60 Days #30 tablet 03/11/20 History of Present Illiness History of Present Illness: MADY YBARRA is a 60 year old female 60 year old female who underwent laparoscopic hysterectomy and salpingectomy. Postoperatively she began coughing up white frothy sputum and was hypoxic with p ulse ox in the 70s. She was placed on oxygen and did not respond to nonrebreather and was placed on BiPAP. She began to respond to BiPAP. She was also given furosemide and has subsequently diuresed 1.5 L. She is currently less short of breath. She is still on BiPAP but we are attempting to wean off BiPAP to supplemental oxygen. She did report some chest pressure postop. She reports a past medical history of only diabetes mellitus with mild diabetic neuropathy. She is currently resting comfortably. She no longer has any chest pain. She is admitted to [facility] room 316. I did have a chance to briefly review the echocardiogram and it appears that the left ventricle global motion is decre ased. Hospital Course Hospital Course: 60 year old female who underwent laparoscopic hysterectomy and salpingectomy. Postoperatively she began coughing up white frothy sputum and was hypoxic with pulse ox in the 70s. She was placed on oxygen and did not respond to nonrebreather and was placed on BiPAP. She began to respond to BiPAP. She was also given furosemide and has subsequently diuresed 1.5 L. She is currently less short of breath. She is still on BiPAP but we are attempting to wean off BiPAP to supplemental oxygen. She did report some chest pressure postop. She reports a past medical history of only diabetes mellitus with mild diabetic neuropathy. She is currently resting comfortably. She no longer has any chest pain. She is admitted to [facility] room 316. I did have a chance to briefly review the echocardiogram and it appears that the left ventricle global motion is decreased. [id number]-old female admitted laparoscopic hysterectomy and salpingectomy. Medical consult was called because of the acute respiratory failure with hypoxia. Echocardiogram was done found to have EF of 30 to 35%. Patient also started complaining of chest pains and cardiac cath was done which was normal study. Patient is going home on LifeVest because of the dilated nonischemic cardiomyopathy. She is 30 to 35%. And is going home on Entresto, Lasix, beta-abena, aspirin, atorvastatin. FRANCESCA rolon Patient Name: MADY YBARRA Date of : 1960 Patient Status: Emergency Emergency Provider: TEODORA LEMUS JR Date: 04/25/20 22:24 Initialization Date: 04/25/20 22:24 Addendum entered and electronically signed by YINA ESPARZA NP 04/25/20 23:43: Doctor's Note Notes: 04/25/20 23:42 Call received from radiologist Dr Lolis Bella he stated patient has a pneumoperitoneum etiology unknown and will need a CT abdomen pelvis. I did go and consult with Dr. lemus. He stated that I should do a IV contrasted abdomen and pelvis CT. This has been ordered. Original Note: ED Medical Screen (RME) - General Chief Complaint: Post Surgical Pain Stated Complaint: POST OP PAIN,CHEST PAIN Time Seen by Provider: 04/25/20 22:14 Primary Care Provider: FIDEL SAEZ FNP-C [Primary Care Provider] - Follow up as needed Mode of Arrival: Ambulatory Information source: Patient Notes: 60-year-old female presents to ED for complaint of chest pain going up both shoulders and last night. She states she had a laparoscopic transvaginal hysterectomy 7 weeks ago. She states she was having no discomfort and was doing very well with her surgery until last night she had sexual intercourse for the first time. She states it is been approved by the [employer] and she had sudden excruciating pain. She states the pain has been coming and going since then. She states she walked from her house to here tonight because the pain was so bad and she needed something for the pain. Patient is alert oriented respirations regular nonlabored and no obvious distress at this time. She states in the hospital with her hysterectomy they told her she had heart cath and stents she states she has had a hysterectomy cholecystectomy at this point she states she does not smoke she does drinks socially and does not use any illicit drugs. Have given her 1 [place] in the triage area and on a chest pain protocol. Chest is nontender to palpation. She does have some epigastric tenderness. She does have hypoactive bowel sounds. Lung sounds are clear at this time. MY NOTES 60-year-old black female arrives with chief complaint of pain in her upper abdomen which has been present for several days. Patient reports she had laparoscopy with transvaginal hysterectomy around 7 weeks ago. Patient was also seen by Dr. Vaughn and Dr. Briseno with heart catheterization to her right wrist area which was negative per patient. She does have a LifeVest on at this time. The [facility] surgery was done by Dr. Merrill. Patient reports "she did not have any rough sex when actually had a gentle partner." CT scan reveals hysterectomy approximately 6 weeks ago with having abdominal pain and no symptoms related to GI tract. It is conceivable that free intra peritoneal air is related to sexual intercourse but may be related to the anatomical vaginal cuff line. This relation this area is agreed by myself because patient has purulent discharge around the posterior vaginal vault. I was assisted by truck engine technician Lesa and we had cultures done of this. CT scan reveals large volume of free intraperitoneal air suggesting perforated viscus. The majority of the air is in the upper abdomen and there is some retroperitoneal air seen associated in the right upper quadrant. This suggests that the air is most likely arising from stomach gastric outlet or proximal duodenum no free fluid no abscess noted. This case was discussed with Dr. Gallego and he advises calling the person who did the scope. I called Dr. Rebecca Boyer about this case. She advises she will evaluate the CT herself and patient may need to be admitted. Dr. Boyer called back at 0 200 and advised that she may have to be admitted and patient taken later to the OR. I advised Dr. Boyer of this patient's cardiac history and she now questions whether this will be allowed on anesthesia. Dr. Boyer did advise broad-spectrum antibiotic and clindamycin. Also spoke with Dr. Talha trujillo around 0-10 and he advises potentially to another facility like [place]. Calls were made to [place] and [facility] had already been made tonight and they were for life-threatening cases only. Essentially no beds. [facility] reports a 24-hour wait. TRAVEL OUTSIDE OF THE [place] IN LAST 30 DAYS: No - HPI Onset: Yesterday Onset/Duration: Persistent Quality of pain: Achy Severity: Moderate Pain Level: 2 Associated Symptoms: Abdominal pain Similar symptoms previously: Yes Recently seen / treated by doctor: Yes - Related Data Allergies/Adverse Reactions: peanuts Allergy (Uncoded 03/07/20 07:39) Past Medical History - General Information source: Patient - Rahman - Social History Cigarette use (# per day): No Chew tobacco use (# tins/day): No Frequency of alcohol use: Occasional Drug Abuse: None Lives with: Family Family history: Reviewed & Not Pertinent - Past Medical History Cardiac Medical History: Reports: Hx Hypercholesterolemia Denies: Hx Coronary Artery Disease, Hx Heart Attack, Hx Hypertension Pulmonary Medical History: Denies: Hx Asthma, Hx Bronchitis, Hx COPD, Hx Pneumonia, Hx Tuberculosis Neurological Medical History: Denies: Hx Cerebrovascular Accident, Hx Seizures Endocrine Medical History: Reports: Hx Diabetes Mellitus Type 2 - "diet controlled" Renal/ Medical History: Denies: Hx Peritoneal Dialysis Musculoskeltal Medical History: Denies Hx Arthritis Psychiatric Medical History: Reports: Hx Depression - anxiety Past Surgical History: Reports: Hx Cholecystectomy, Hx Tubal Ligation. Denies: Hx Pacemaker - Immunizations Hx Diphtheria, Pertussis, Tetanus Vaccination: Yes Review of Systems - Review of Systems Constitutional: See HPI, Recent illness EENT: No symptoms reported Cardiovascular: No symptoms reported Respiratory: No symptoms reported Gastrointestinal: See HPI, Abdomen distended, Abdominal pain Genitourinary: No symptoms reported Female Genitourinary: See HPI, Other - s/p lap SCOOTER Musculoskeletal: No symptoms reported Skin: No symptoms reported Hematologic/Lymphatic: No symptoms reported Neurological/Psychological: No symptoms reported Physical Exam - Vital signs Vitals: Temp Pulse Resp BP Pulse Ox 98.5 F 96 20 119/55 L 96 04/25/20 21:51 04/25/20 21:51 04/25/20 21:51 04/25/20 21:51 04/25/20 21:51 Interpretation: Normal - General General appearance: Alert - HEENT Head: Normocephalic, Atraumatic Eyes: Normal Pupils: PERRL Mouth/Lips: Normal Mucous membranes: Normal Pharynx: Normal Neck: Normal - Respiratory Respiratory status: No respiratory distress Chest status: Nontender Breath sounds: Normal Chest palpation: Normal - Cardiovascular Rhythm: Regular Heart sounds: Normal auscultation Murmur: No - Abdominal Inspection: Healed incision Distension: Distended Bowel sounds: Hyperactive Tenderness: Tender - Diffusely Organomegaly: No organomegaly - Rectal Tenderness: No - Genitourinary External exam: Normal Speculum exam: Vaginal discharge - Posterior vault with purulent discharge with some air bubble - Back Back: Normal - Extremities General upper extremity: Normal inspection General lower extremity: Normal inspection - Normal normal - Neurological Neuro grossly intact: Yes Cognition: Normal Orientation: AAOx4 [place] Coma Scale Eye Opening: Spontaneous [place] Coma Scale Verbal: Oriented [place] Coma Scale Motor: Obeys Commands Rashida Coma Scale Total: 15 Speech: Normal Motor strength normal: LUE, RUE, LLE, RLE Sensory: Normal - Psychological Associated symptoms: Normal affect - Skin Skin Temperature: Warm Skin Moisture: Dry Course - Vital Signs Vital signs: Temp Pulse Resp BP Pulse Ox 98.5 F 96 20 119/55 L 96 04/25/20 22:14 04/25/20 21:51 04/25/20 21:51 04/25/20 21:51 04/25/20 21:51 - Laboratory Result Diagrams: 04/25/20 22:23 04/25/20 22:23 Laboratory results interpreted by me: 04/25/20 04/25/20 04/26/20 22:23 22:23 01:35 MCH 26.7 L RDW 19.2 H Glucose 153 H Urine Blood SMALL H Ur Leukocyte Esterase SMALL H - Diagnostic Test Radiology reviewed: Reports reviewed Critical Care Note - Critical Care Note Comments: I discussed case with Kevin around 0 200 and she advised she will speak with anesthesiology about this case. Anesthesiologist was called and he recognized this woman and her case and advised transfer to a tertiary facility. I spoke to [place] at [facility] about this patient. She advises a facesheet be sent to [facility]. I spoke with Dr. Cornejo at [facility] and she is accepted the patient at . Doctor's Discharge - Discharge Clinical Impression: Status post hysterectomy, Free intraperitoneal air, Heart failure with reduced ejection fraction Abdominal pain Qualifiers: Abdominal location: unspecified location Qualified Code(s): R10.9 - Unspecified abdominal pain Condition: Good Disposition: [facility] Additional Instructions: Transfer this patient to [facility] as per Dr. Cornejo scroll assembler. Referrals: FIDEL SAEZ, SLAGGER-C [Primary Care Provider] - Follow up as needed
[2020-04-26] MEDS ORDERED: CEFTRIAXONE INJ 1000 MG VIAL IM ONE (01:42)
[2020-04-26] MEDS ORDERED: AZITHROMYCIN 250 MG TABLET PO ONE (01:42)
[2020-04-26] MEDS ORDERED: HYDROCODONE/ACETAMINOPHEN 5-325 MG (6 TAB/ER DISP) PO PRN (01:43)
[2020-04-26 02:03] LABS: BACTERIA (WET MOUNT) 3+ BACTERIA SEEN; RBCS (WET MOUNT) RARE RBCS SEEN; T.VAGINALIS (WET MOUNT) NO TRICHOMONAS SEEN; WBCS (WET MOUNT) 1+ WBCS SEEN; YEAST (WET MOUNT) NO YEAST SEEN
[2020-04-26] MEDS ORDERED: CEFTRIAXONE 1 GM/D5W RTU 1 GM/50 ML RTUPB IV ONE ×2 (02:03→02:35)
[2020-04-26 02:10] LABS: APPEARANCE,URINE CLEAR; BILIRUBIN,URINE NEGATIVE (NEGATIVE); COLOR,URINE YELLOW; GLUCOSE, URINE NEGATIVE (NEGATIVE); KETONES,URINE NEGATIVE (NEGATIVE); LEUKOCYTE ESTERASE,URINE SMALL (NEGATIVE); NITRITE,URINE NEGATIVE (NEGATIVE); PROTEIN,URINE NEGATIVE (NEGATIVE); UROBILINOGEN,URINE NEGATIVE mg/dL (<2.0)
[2020-04-26 02:12] LABS: URINE SPECIFIC GRAVITY > 1.060
[2020-04-26] MEDS ORDERED: CLINDAMYCIN PHOSPHATE 1,200 MG in DEXTROSE 5%-WATER 100 ML IV SCH (02:30)
[2020-04-26] MEDS ORDERED: OXYCODONE-ACETAMINOPHEN 5-325 MG TABLET PO ONE (02:31)
[2020-04-26] MEDS ORDERED: CLINDAMYCIN 600 MG/D5W RTU 0 MG/0 ML RTUPB IV ONE (02:40)
[2020-04-26] MEDS ORDERED: CLINDAMYCIN 900 MG/D5W RTU 900 MG/50 ML RTUPB IV ONE (02:43)
[2020-04-26 03:37] LABS: CHLAM PCR NOT DETECTED (NOT DETECT)
[2020-04-26] MEDS ORDERED: NORMAL SALINE 1000 ML 1,000 ML IV PRN (09:03)
[2020-04-26] MEDS ORDERED: HYDROMORPHONE HCL INJ/PF 2 MG/ML AMPULE IV ONE (09:16)
[2020-04-26] MEDS ORDERED: ONDANSETRON HCL INJ/PF 4 MG/2 ML SDV IV ONE (09:16)
--- NOTE | 2020-04-26 09:17 | ER Document Report ---
Doctor's Note Notes: 04/26/20 09:16 Transport is here to take the patient to [facility]. She is reporting some discomfort in her abdomen so she will receive 1 mg Dilaudid IV with some Zofran. Vital signs are stable. Patient is stable for transport.
[2020-04-26 09:33] VITALS: BP 114/76
== END 2020-04-26 09:35 | disposition short-term general hospital (02) ==
LOC: ER 21:35
DX: I50.20 Unspecified systolic (congestive) heart failure (principal); K66.8 Other specified disorders of peritoneum; I42.8 Other cardiomyopathies; J96.01 Acute respiratory failure with hypoxia; J81.0 Acute pulmonary edema; R07.2 Precordial pain; E11.65 Type 2 diabetes mellitus with hyperglycemia; Z79.4 Long term (current) use of insulin; R10.9 Unspecified abdominal pain; G89.18 Other acute postprocedural pain; F17.210 Nicotine dependence, cigarettes, uncomplicated; Z90.710 Acquired absence of both cervix and uterus; I25.119 Atherosclerotic heart disease of native coronary artery with unspecified angina pectoris
CPT/HCPCS: 93005; 99285; 96365; 96367; 36415; 87040; 87210; 82550; 83735; 85025; 87077; 80053; 81001; 84484; 87491; 87591; 87150 ×26; 71046; 74177; 93010; J3490; J7030; J0696

== ENCOUNTER 2020-04-30 22:33 | Emergency (ER) | payer MEDICAID ==
[2020-04-30 23:08] LABS: ABSOLUTE BASOPHILS # (AUTO) 0.1 10^3/uL (0.0-0.2); ABSOLUTE EOSINOPHILS # (AUTO) 0.3 10^3/uL (0.0-0.6); ABSOLUTE MONOCYTES (AUTO) 0.7 10^3/uL (0.1-1.4); ABSOLUTE NEUT (AUTO) 5.6 10^3/uL (1.7-8.2); BASOPHILS % (AUTO) 1.3 % (0-2); HEMATOCRIT 37.9 % (36.0-47.0); HEMOGLOBIN 12.5 g/dL (12.0-15.5); LYMPHOCYTES % (AUTO) 31.3 % (13-45); MEAN CORPUSCULAR HEMOGLOBIN 27.1 pg (27.0-33.4); MEAN CORPUSCULAR VOLUME 82 fl (80-97); PLATELET COUNT 301 10^3/uL (150-450); RED BLOOD COUNT 4.61 10^6/uL (3.72-5.28); RED CELL DISTRIBUTION WIDTH 18.9 % (11.5-14.0); SEGMENTED NEUTROPHILS % (AUTO) 57.4 % (42-78); TOTAL CELLS COUNTED % (AUTO) 100 %; WHITE BLOOD COUNT 9.7 10^3/uL (4.0-10.5)
[2020-04-30 23:12] LABS: ALBUMIN 4.4 g/dL (3.5-5.0); ALKALINE PHOSPHATASE 92 U/L (38-126); ANION GAP 10 (5-19); ASPARTATE AMINO TRANSFERASE 19 U/L (14-36); BILIRUBIN,DIRECT 0.3 mg/dL (0.0-0.4); BILIRUBIN,TOTAL 0.6 mg/dL (0.2-1.3); BLOOD UREA NITROGEN 20 mg/dL (7-20); CALCIUM 9.9 mg/dL (8.4-10.2); CARBON DIOXIDE 26 mmol/L (22-30); CHLORIDE 107 mmol/L (98-107); GLUCOSE 127 mg/dL (75-110); TOTAL PROTEIN 7.7 g/dL (6.3-8.2)
[2020-04-30] MEDS ORDERED: MORPHINE SULFATE 10 MG/ML INJ IV ONE (23:14)
[2020-04-30] MEDS ORDERED: ONDANSETRON HCL INJ/PF 4 MG/2 ML SDV IV ONE (23:14)
--- NOTE | 2020-04-30 23:18 | ER Document Report ---
ED General - General Chief Complaint: Abdominal Pain Stated Complaint: ABDOMINAL PAIN Time Seen by Provider: 04/30/20 22:58 Primary Care Provider: FIDEL SAEZ FNP-C [Primary Care Provider] - Follow up as needed TRAVEL OUTSIDE OF THE [place] IN LAST 30 DAYS: No - HPI Notes: Patient is a 60-year-old female with a history of congestive heart failure who presents to the emergency department for evaluation of epigastric pain. She had a recent vaginal cuff repair after hysterectomy. This was performed at [facility] 4 days ago. The patient went home, no issues following. She did have some scant vaginal bleeding since then. Otherwise she states she has been eating and drink ing. Normal urination, normal bowel movements. She really has had minimal pain. Today she went to go get dinner. Before eating anything, she had sudden onset pulling" moving" pain in her epigastrium and right upper quadrant. She currently puts her pain at a 7 out of 10. It does radiate to her back. She is never had anything similar to this in the past. She states that she became sweaty, but she denies any associated chest pain, shortness of breath, nausea or vomiting. - Related Data Allergies/Adverse Reactions: peanuts Allergy (Uncoded 03/07/20 07:39) Home Medications: Metoprolol, oxycodone, acetaminophen Past Medical History - General Information source: Patient - Social History Smoking Status: Current Every Day Smoker Chew tobacco use (# tins/day): No Frequency of alcohol use: Rare Drug Abuse: None Family History: Reviewed & Not Pertinent, DM Patient has homicidal ideation: No - Past Medical History Cardiac Medical History: Reports: Hx Congestive Heart Failure, Hx Hypercholesterolemia Denies: Hx Coronary Artery Disease, Hx Heart Attack, Hx Hypertension Pulmonary Medical History: Denies: Hx Asthma, Hx Bronchitis, Hx COPD, Hx Pneumonia, Hx Tuberculosis Neurological Medical History: Denies: Hx Cerebrovascular Accident, Hx Seizures Endocrine Medical History: Reports: Hx Diabetes Mellitus Type 2 - "diet controlled" Renal/ Medical History: Denies: Hx Peritoneal Dialysis Musculoskeletal Medical History: Denies Hx Arthritis Psychiatric Medical History: Reports: Hx Depression - anxiety Past Surgical History: Reports: Hx Cholecystectomy, Hx Hysterectomy - And subsequent repair of vaginal cuff, Hx Tubal Ligation. Denies: Hx Pacemaker - Immunizations Hx Diphtheria, Pertussis, Tetanus Vaccination: Yes Hx Pneumococcal Vaccination: 04/12/12 Review of Systems - Review of Systems Constitutional: See HPI EENT: No symptoms reported Cardiovascular: No symptoms reported Respiratory: No symptoms reported Gastrointestinal: See HPI Genitourinary: No symptoms reported Female Genitourinary: See HPI Musculoskeletal: No symptoms reported Skin: No symptoms reported Neurological/Psychological: No symptoms reported Physical Exam - Vital signs Vitals: Temp Pulse Resp BP Pulse Ox 98.9 F 88 20 118/78 100 04/30/20 22:51 04/30/20 22:51 04/30/20 22:51 04/30/20 22:51 04/30/20 22:51 - Notes Notes: Vital signs reviewed, please refer to chart. Head is normocephalic, atraumatic. Pupils equal round, reactive to light. Neck is supple without meningismus. Heart is regular rate and rhythm. Lungs are clear to auscultation bilaterally. Abdomen is soft, moderately tender in the epigastric and right upper quadrant regions without rebound or guarding, normoactive bowel sounds throughout. Well- healed laparoscopic scars from prior hysterectomy noted. Extremities without cyanosis, clubbing. Posterior calves are nontender. Peripheral pulses are equal. Skin is warm and dry. Patient is awake, alert, neurological exam is nonfocal. Course - Re-evaluation Re-evalutation: 04/30/20 23:18 Patient presents to the emergency department for evaluation via EMS for sudden onset abdominal pain. Her vital signs are largely unremarkable. Laboratory investigations and imaging ordered. I did order pain medication, nausea medication. She is currently stable, we will continue to monitor. 05/01/20 02:38 CT scan shows air, but no active bleeding or free fluid. Patient is feeling improved. I will send her home with a small amount of oxycodone and close follow-up. She is to return to the ED with worsening. - Vital Signs Vital signs: Temp Pulse Resp BP Pulse Ox 98.9 F 88 20 118/78 100 04/30/20 22:51 04/30/20 22:51 04/30/20 22:51 04/30/20 22:51 04/30/20 22:51 - Laboratory Result Diagrams: 04/30/20 22:48 04/30/20 22:48 Laboratory results interpreted by me: 04/30/20 04/30/20 05/01/20 22:48 22:48 01:25 RDW 18.9 H Glucose 127 H Urine Blood MODERATE H Ur Leukocyte Esterase SMALL H - Diagnostic Test Radiology reviewed: Reports reviewed Radiology results interpreted by me: 05/01/20 02:38 Abdomen/Pelvis CT 04/30/20 23:14 IMPRESSION: 1. Redemonstrated extensive free intraperitoneal air without definitive source identified on this study. This may be related to perforated viscus. The patient has had a hysterectomy within the past 2 months however this would be much more air than would be expected given duration of time since patient's surgery. Source of air may also be related to surgical anastomosis abnormality at the vaginal cuff. This exam was performed according to our departmental dose-optimization program, which includes automated exposure control, adjustment of the mA and/or kV according to patient size and/or use of iterative reconstruction technique. Discharge - Discharge Clinical Impression: Epigastric pain Condition: Stable Disposition: HOME, SELF-CARE Instructions: Abdominal Pain ([facility]) Additional Instructions: It is likely that your abdominal pain is from the air in your abdomen, as a result of your recent surgery. Please continue to be active. Take oxycodone as needed for severe pain. Follow-up with your surgeon and primary care provider. If you develop worsening or new concerning symptoms of any sort, please return immediately to the emergency department for reevaluation. Referrals: FIDEL SAEZ FNP-C [Primary Care Provider] - Follow up as needed
[2020-04-30 23:31] LABS: ANISOCYTOSIS 2+; HYPOCHROMASIA SLIGHT
[2020-04-30 23:33] LABS: OVALOCYTES 1+; PLATELET COMMENT ADEQUATE; POIKILOCYTOSIS 1+; TARGET CELLS SLIGHT; TEAR DROP CELLS SLIGHT
[2020-05-01 01:46] LABS: APPEARANCE,URINE SLIGHTLY-CLOUDY; BILIRUBIN,URINE NEGATIVE (NEGATIVE); COLOR,URINE YELLOW; GLUCOSE, URINE NEGATIVE (NEGATIVE); KETONES,URINE NEGATIVE (NEGATIVE); LEUKOCYTE ESTERASE,URINE SMALL (NEGATIVE); NITRITE,URINE NEGATIVE (NEGATIVE); PROTEIN,URINE NEGATIVE (NEGATIVE); URINE SPECIFIC GRAVITY 1.025; UROBILINOGEN,URINE NEGATIVE mg/dL (<2.0)
[2020-05-01 01:48] LABS: ADD MANUAL MICROSCOPIC YES; BACTERIA,URINE TRACE /HPF
--- NOTE | 2020-05-01 02:13 | RADIOLOGY REPORT (SQ) ---
EXAM DESCRIPTION: CT ABDOMEN PELVIS WITH IV CONTRAST COMPLETED DATE/TME: 04/30/2020 23:14 CLINICAL HISTORY: epigastric pain. CREAT 0.84 COMPARISON: 04/26/2020 TECHNIQUE: CT of the abdomen and pelvis performed following IV administration of 92 mL Omnipaque 350. FINDINGS: Lung Bases: The visualized lung bases are clear. Bones: Mild degenerative endplate spondylosis. Abdomen: Liver: The liver has normal size and density. No intrahepatic biliary dilatation. Gallbladder: Prior cholecystectomy. Spleen, Pancreas, and Adrenal Glands: The spleen, pancreas, and adrenal glands are unremarkable. Kidneys: No hydronephrosis or obstructing calculus. Vasculature: Aortoiliac atherosclerosis. IVC is unremarkable. The portal vein is patent. The proximal visceral and renal arteries are patent. Stomach: The stomach and duodenum have normal course. Other: Extensive free intraperitoneal air again identified. No free fluid or lymphadenopathy. Pelvis: Bladder: Urinary bladder is unremarkable. Bowel: No dilated loops of large or small bowel. Appendix: Normal appendix. Pelvis: Prior hysterectomy. IMPRESSION: 1. Redemonstrated extensive free intraperitoneal air without definitive source identified on this study. This may be related to perforated viscus. The patient has had a hysterectomy within the past 2 months however this would be much more air than would be expected given duration of time since patient's surgery. Source of air may also be related to surgical anastomosis abnormality at the vaginal cuff. This exam was performed according to our departmental dose-optimization program, which includes automated exposure control, adjustment of the mA and/or kV according to patient size and/or use of iterative reconstruction technique.
[2020-05-01 03:27] VITALS: BP 125/81
== END 2020-05-01 03:26 | disposition home or self-care (01) ==
LOC: ER 22:33
DX: R10.13 Epigastric pain (principal); R10.11 Right upper quadrant pain; F17.200 Nicotine dependence, unspecified, uncomplicated; Z98.890 Other specified postprocedural states; Z90.710 Acquired absence of both cervix and uterus; Z79.899 Other long term (current) drug therapy; Z79.891 Long term (current) use of opiate analgesic; Z91.010 Allergy to peanuts
CPT/HCPCS: 99285; 96374; 96375; 36415; 87086; 83690; 85025; 80053; 81001; 74177; J2270; J2405

== ENCOUNTER → 2020-06-09 | Outpatient (CLI) | payer MEDICAID ==
--- NOTE | 2020-06-10 20:49 | XCELERA REPORT ---
[address] [address] Transthoracic Echocardiogram Report Name: MADY YBARRA Age: 60 yrs Gender: Female : 1960 Patient Status: Outpatient Patient Location: Study Date: 06/09/2020 02:10 PM History: NICMP CHF Height: 65 in Weight: 176 lb BSA: 1.9 m2 Procedure: A complete two-dimensional transthoracic echocardiogram was performed (2D, M-mode, spectral and color flow Doppler). The study was technically adequate with some images being suboptimal in quality. Reason For Study: HTN, DILATED CARDIOMYOPATHY Previous Evaluation: A previous study was performed on 03/07/2020 LVEF 20-25%. History: NICMP CHF. CHF. Shortness of breath. Ordering Physician: LOLIS BRISNEO Performed By: Servando Link Interpretation Summary Compared to prior study in February, the LVEF has improved slightly. Left ventricular systolic function is moderately reduced. The Ejection Fraction estimate is 25-30% The right ventricle is normal in size and function. There is a trace to mild amount of mitral regurgitation There is a trace amount of tricuspid regurgitation There is mild pulmonary hypertension by echo There is no pericardial effusion. Compared to prior study in February, the LVEF has improved slightly MMode/2D Measurements & Calculations RVDd: 2.2 cm LVIDd: 5.3 cm FS: 10.8 % Ao root diam: IVSd: 0.96 cm LVIDs: 4.7 cm EDV(Teich): 2.9 cm LVPWd: 0.99 cm 136.1 ml Ao root area: ESV(Teich): 6.7 cm2 104.4 ml LA dimension: EF(Teich): 23.3 % 3.6 cm LVLd ap4: 8.2 cm SV(MOD-sp4): 47.0 ml EDV(MOD-sp4): 139.0 ml LVLs ap4: 7.4 cm ESV(MOD-sp4): 92.0 ml EF(MOD-sp4): 33.8 % Doppler Measurements & Calculations MV E max wiley: MV P1/2t max wiley: Ao V2 max: LV V1 max P.8 cm/sec 119.2 cm/sec 110.8 cm/sec 1.8 mmHg MV A max wiley: MV P1/2t: 52.6 msec Ao max PG: LV V1 max: 75.0 cm/sec MVA(P1/2t): 4.2 cm2 4.9 mmHg 67.3 cm/sec MV E/A: 1.8 MV dec slope: LV dP/dt: 478.0 mmHg/s 663.8 cm/sec2 MV dec time: 0.12 sec PA V2 max: PI end-d wiley: TR max wiley: MV P1/2t-pr_phl: 71.0 cm/sec 142.5 cm/sec 288.8 cm/sec 52.6 msec PA max P.0 mmHg TR max P.4 mmHg Left Ventricle The left ventricle is normal in size. There is mild concentric left ventricular hypertrophy. Left ventricular systolic function is moderately reduced. The Ejection Fraction estimate is 25-30%. Doppler measurements suggest pseudonormalized left ventricular relaxation, which is associated with grade II/IV or mild to moderate diastolic dysfunction. Right Ventricle The right ventricle is normal in size and function. Atria The right atrium is normal. The left atrium is borderline dilated. The interatrial septum is intact with no evidence for an atrial septal defect. There is no Doppler evidence for an interatrial shunt. Mitral Valve The mitral valve is grossly normal. There is no mitral valve stenosis. There is a trace to mild amount of mitral regurgitation. Aortic Valve The aortic valve is not well visualized secondary to technical limitations. The aortic valve opens well. There is no aortic valve stenosis. Tricuspid Valve The tricuspid valve is normal in structure and function. There is a trace amount of tricuspid regurgitation. Best estimated right ventricular systolic pressure is elevated at 40-50mmHg. There is mild pulmonary hypertension by echo. Pulmonic Valve The pulmonic valve is not well seen, but is grossly normal. There is no pulmonic valvular stenosis. There is a mild amount of pulmonic regurgitation. Great Vessels The aortic root is normal size. The inferior vena cava appeared normal and decreased > 50% with respiration (RAP 5-10 mmHg). Effusions There is no pericardial effusion. : LOLIS BRISENO Anil
== END ==
LOC: SP 13:33
PROVIDERS: ATTEND Internal Medicine
DX: I11.0 Hypertensive heart disease with heart failure (principal); I50.21 Acute systolic (congestive) heart failure; I42.0 Dilated cardiomyopathy
CPT/HCPCS: 93306

== ENCOUNTER 2020-07-03 18:11 | Emergency (ER) | payer MEDICAID ==
[2020-07-03 18:23] VITALS: BP 125/76
[2020-07-03] MEDS ORDERED: OXYCODONE-ACETAMINOPHEN 5-325 MG TABLET PO ONE (19:32)
[2020-07-03] MEDS ORDERED: KETOROLAC TROMETHAMINE 60 MG/2 ML SDV IM ONE (19:32)
--- NOTE | 2020-07-03 19:34 | ER Document Report ---
ED General - General Chief Complaint: Fall Stated Complaint: FELL - RIGHT SIDE PAIN (FLANK TO FOOT) Time Seen by Provider: 07/03/20 19:30 Primary Care Provider: LOLIS BRISENO MD [Primary Care Provider] - Follow up as needed Mode of Arrival: Ambulatory Information source: Patient Notes: 60-year-old -[place] female coming in today with pain after a fall. She fell in the tub last night and has pain from her right lower back all the way to her right foot. She is ambulatory with a limp. He is having extensive muscle spasms that are causing more pain. TRAVEL OUTSIDE OF THE [place] IN LAST 30 DAYS: No - Related Data Allergies/Adverse Reactions: peanuts Allergy (Uncoded 03/07/20 07:39) Past Medical History - Social History Smoking Status: Unknown if Ever Smoked Family History: Reviewed & Not Pertinent, DM - Past Medical History Cardiac Medical History: Reports: Hx Congestive Heart Failure, Hx Hypercholesterolemia Denies: Hx Coronary Artery Disease, Hx Heart Attack, Hx Hypertension Pulmonary Medical History: Denies: Hx Asthma, Hx Bronchitis, Hx COPD, Hx Pneumonia, Hx Tuberculosis Neurological Medical History: Denies: Hx Cerebrovascular Accident, Hx Seizures Endocrine Medical History: Reports: Hx Diabetes Mellitus Type 2 - "diet controlled" Renal/ Medical History: Denies: Hx Peritoneal Dialysis Musculoskeletal Medical History: Denies Hx Arthritis Psychiatric Medical History: Reports: Hx Depression - anxiety Past Surgical History: Reports: Hx Cholecystectomy, Hx Hysterectomy - And subsequent repair of vaginal cuff, Hx Tubal Ligation. Denies: Hx Pacemaker - Immunizations Hx Diphtheria, Pertussis, Tetanus Vaccination: Yes Hx Pneumococcal Vaccination: 04/12/12 Review of Systems - Review of Systems Notes: Constitutional: No fevers. No chills. EENT: No eye redness. No eye pain. No ear pain. No sore throat. Cardiovascular: No chest pain. No palpitations. Respiratory: No cough. No shortness of breath. No respiratory distress. Gastrointestinal: No abdominal pain. No nausea, vomiting, or diarrhea. Genitourinary: Atraumatic. No lesions. No pain. No discharge. Musculoskeletal: Atraumatic. No swelling. No deformities. Pain in the right low back, right lower extremity Skin: No rash or lesions. Lymphatic: No swollen lymph nodes. Neurologic: No headache. No syncope. Psychiatric: No suicidal or homicidal ideation. Physical Exam - Vital signs Vitals: Temp Pulse Resp BP Pulse Ox 97.6 F 92 16 125/76 95 07/03/20 18:20 07/03/20 18:20 07/03/20 18:20 07/03/20 18:20 07/03/20 18:20 - Notes Notes: General: Well-developed, well-nourished. In no acute distress. Non-toxic appearing. Cardiac: Well-perfused. Regular rate and rhythm. No murmurs, rubs, or gallops. Pulmonary: No respiratory distress. No cyanosis. Bilateral lung painting are clear to auscultation. Abdominal: Non-distended. Non-rigid. Bowels sounds are present in all four quadrants. No guarding or rebound. HEENT: Head is atraumatic. Conjunctivae not reddened. No tearing. PERRL. EOMI. Orbits atraumatic. No periorbital swelling or erythema. Oropharynx is without erythema, swelling, or exudates. Neck: Supple. No adenopathy. No meningismus. Dermatologic: Warm with good turgor. No rash. Atraumatic. Chest: Atraumatic. No chest wall tenderness to palpation. Musculoskeletal: Moves all extremities well. No range of motion deficits. no muscular or joint tenderness. No paraspinal muscle tenderness. no midline spinal tenderness or step-off. Numbness to the right paralumbar region and right hip. No shortening or rotation. No obvious bony deformities. Distal neurovascular exam is intact Genitourinary: Examination deferred Neurologic: No gross neurologic deficits. Psychiatric: Normal mood. Course - Re-evaluation Re-evalutation: 07/03/20 20:59 X-rays negative will discharge home on pain medication - Vital Signs Vital signs: Temp Pulse Resp BP Pulse Ox 97.6 F 92 16 125/76 95 07/03/20 18:20 07/03/20 18:20 07/03/20 18:20 07/03/20 18:20 07/03/20 18:20 - Diagnostic Test Radiology reviewed: Reports reviewed Discharge - Discharge Clinical Impression: Muscle strain Contusion Qualifiers: Encounter type: initial encounter Contusion area: lower back Qualified Code(s): S30.0XXA - Contusion of lower back and pelvis, initial encounter Condition: Good Disposition: HOME, SELF-CARE Instructions: Contusion ([facility]), Muscle Strain ([facility]) Prescriptions: Naproxen 500 mg PO BID 5 Days #10 tablet Diazepam [Valium 5 mg Tablet] 5 mg PO QIDP PRN #12 tablet PRN Reason: Referrals: LOLIS BRISENO MD [Primary Care Provider] - Follow up as needed
--- NOTE | 2020-07-03 20:49 | RADIOLOGY REPORT (SQ) ---
CLINICAL INDICATION: fall injury. Pain. TECHNIQUE: 4 view(s) were obtained of the right leg. COMPARISON: None. FINDINGS: No acute displaced fracture is identified of the leg. Alignment appears anatomic. Joint spaces are within normal limits for age. Surrounding soft tissues are unremarkable. If knee or ankle are clinically in suspicion, then dedicated radiography is advised. IMPRESSION: No evidence of acute bony injury to the leg.
--- NOTE | 2020-07-03 20:49 | RADIOLOGY REPORT (SQ) ---
CLINICAL INDICATION: fall injury. Pain. TECHNIQUE: Single view(s) were obtained of the right hip. AP pelvis COMPARISON: None. FINDINGS: No acute displaced fracture is identified of the hip. Alignment appears anatomic. Joint space is within normal limits for age. Surrounding soft tissues are unremarkable. IMPRESSION: No evidence of acute displaced fracture of the hip.
--- NOTE | 2020-07-03 20:50 | RADIOLOGY REPORT (SQ) ---
INDICATION: fall injury. Pain TECHNIQUE: 5 view(s) of the lumbar spine. Both obliques COMPARISON: None FINDINGS: No evidence of acute displaced fracture. Alignment is anatomic. The facets and intervertebral joints are within normal limits for age. Vertebral body heights are well-maintained. Aortic calcification without aneurysmal disease appreciated. IMPRESSION: No evidence of acute displaced fracture of the lumbar spine.
--- NOTE | 2020-07-03 20:50 | RADIOLOGY REPORT (SQ) ---
CLINICAL INDICATION: fall injury. Pain. TECHNIQUE: 3 view(s) were obtained of the right foot. COMPARISON: None. FINDINGS: No acute displaced fracture is identified of the foot. Alignment appears anatomic. Joint spaces are within normal limits for age. Surrounding soft tissues are unremarkable. Old posttraumatic change of the ankle IMPRESSION: No evidence of acute displaced fracture of the foot.
--- NOTE | 2020-07-03 20:51 | RADIOLOGY REPORT (SQ) ---
CLINICAL INDICATION: fall injury. Pain. TECHNIQUE: 4 view(s) were obtained of the right knee. COMPARISON: None. FINDINGS: No acute displaced fracture is identified of the knee. Alignment appears anatomic. Joint spaces are within normal limits for age. No significant joint effusion. Surrounding soft tissues are unremarkable. IMPRESSION: No evidence of acute displaced fracture of the knee.
[2020-07-03] MEDS ORDERED: HYDROCODONE/ACETAMINOPHEN 5-325 MG (6 TAB/ER DISP) PO PRN (21:24)
== END 2020-07-03 21:31 | disposition home or self-care (01) ==
LOC: ER 18:11
DX: S30.0XXA Contusion of lower back and pelvis, initial encounter (principal); T14.8XXA Other injury of unspecified body region, initial encounter; M79.671 Pain in right foot; W18.2XXA Fall in (into) shower or empty bathtub, initial encounter; M62.838 Other muscle spasm; E11.9 Type 2 diabetes mellitus without complications; Z91.010 Allergy to peanuts
CPT/HCPCS: 99284; 96372; 73630; 73502; 73564; 72110; 73590; J1885